=== PATIENT | female | born 1980 | race Caucasian/White ===

== ENCOUNTER 2021-01-24 15:50 | Emergency (ER) | payer SELFPAY ==
[2021-01-24 16:04] VITALS: BP 107/74; PULSE 129; RESP 20; TEMP 37.1; O2SAT 97; BMI 26.6
[2021-01-24 16:30] VITALS: BP 106/74; PULSE 120; RESP 13; O2SAT 96
--- NOTE | 2021-01-24 16:36 | ED.OVERDOSE ---
HPI - Overdose General Chief Complaint: Toxicology Problem Stated Complaint: WITHDRAWALS DTS Time Seen by Provider: 01/24/21 16:29 Source: patient Mode of arrival: Family Vehicle Limitations: no limitations History of Present Illness HPI Narrative: Patient is a 40-year-old female who presents with shaking all over. She states that she has been buying benzodiazepines and other drugs off history including methamphetamine and marijuana for at least 5 years. She states that she has not taken a benzodiazepine for about 3 weeks she would like to stop and also she can not find any. She is shaky and feels extremely anxious. She is tired of feeling this way. She denies any chest pain shortness of breath nausea or vomiting. She admits to using methamphetamine but she is not sure when, she also admits to smoking marijuana. She does not remember a whole lot and feels like maybe she has been poisoned. She is looking for detox. She denies any seizures. No alcohol use. Related Data Home Medications Medication Instructions Recorded Confirmed No Known Home Medications 01/24/21 01/24/21 Allergies Allergy/AdvReac Type Severity Reaction Status Date / Time Penicillins [PENICILLINS] Allergy Unknown Verified 01/24/21 16:48 Review of Systems Review of Systems ROS Unobtainable: All systems reviewed & are unremarkable except as noted in HPI and below Constitutional Constitutional: Denies chills, Denies fever(s), Denies lethargy and Denies weakness Eyes Eyes: Denies change in vision, Denies eye discharge, Denies irritation and Denies loss of vision ENT Ears, Nose, Mouth, and Throat: Denies change in voice, Denies neck pain and Denies sore throat Cardiovascular Cardiovascular: Denies chest pain, Denies irregular heart rhythm, Denies lightheadedness, Denies palpitations, Denies dyspnea, Denies dyspnea on exertion and Denies orthopnea Respiratory Respiratory: Denies cough, Denies dyspnea, Denies dyspnea on exertion and Denies wheezing Gastrointestinal Gastrointestinal: Denies abdominal pain, Denies change in bowel habits, Denies diarrhea, Denies nausea and Denies vomiting Genitourinary Genitourinary: Denies urinary hesitancy and Denies urinary incontinence Genitourinary: Denies urinary incontinence and Denies urinary hesitancy Musculoskeletal Musculoskeletal: Denies neck pain Integumentary/Breasts Skin/Breast: Denies pruritus, Denies erythema, Denies rash and Denies wounds Neurologic Neurologic: Denies loss of vision, Reports memory loss and Denies weakness Psychiatric Psychiatric: Reports system reviewed and no additional complaints, except as documented, Reports as per HPI, Reports anxiety, Reports memory loss and Reports paranoia Endocrine Endocrine: Denies palpitations Allergic/Immunologic Allergic/Immunologic: Denies wheezing Patient History Social History (Updated 01/24/21 @ 16:51 by Imelda Deluna DO) substance use type: marijuana, tranquilizers and methamphetamine alcohol intake frequency: 0-2 drinks per day Substance Use Type: marijuana and tranquilizers Exam Initial Vital Signs Initial Vital Signs: Vital Signs Temperature 98.7 F 01/24/21 16:04 Pulse Rate 129 H 01/24/21 16:04 Respiratory Rate 20 01/24/21 16:04 Blood Pressure 107/74 01/24/21 16:04 Pulse Oximetry 97 01/24/21 16:04 GENERAL: Alert anxious 40-year-old female and in no acute distress. HEENT: Head atraumatic,EOMI, pupils reactive, face symmetric, moist mucous membranes CARDIOVASCULAR: Tachycardic regular no murmur RESPIRATORY: Breath sounds equal bilaterally, no wheezes rales or rhonchi. ABDOMEN: Soft, nontender. Normoactive bowel sounds all 4 quadrants. No guarding or rebound. EXTREMITIES: Normal range of motion, no clubbing or edema. Neurovascularly intact NEUROLOGICAL: Alert and oriented x4.Normal gait and speech. Cranial nerves II through XII grossly intact. SKIN: Warm, dry, no laceration, no petechiae, no rashes or lesions. Course Orders Ordered: ED Orders 01/24/21 16:09 Consult to FIRST SAMPLER - [employer] Stat 01/24/21 16:32 Lactate (Lactic Acid) Stat 01/24/21 16:38 Acetaminophen Stat Complete Blood Count AUTO DIFF Stat Comprehensive Metabolic Panel Stat D Dimer Stat Ethanol (ETOH) Stat Free T4, Direct Thyroxine Stat Salicylate Stat Thyroid Stimulating Hormone Stat 01/24/21 16:40 COVID19 -Nasal swab/Pre-Proc Stat 01/24/21 17:12 XR chest 1V Stat 01/24/21 17:30 Blood Culture Stat 01/24/21 18:46 Urine Drug Screen, Rapid Stat 01/24/21 18:54 EKG-12 Lead Stat Discontinued Medications Acetaminophen (Acetaminophen 325 Mg Tablet) 975 mg PO NOW ONE Stop: 01/24/21 18:14 Last Admin: 01/24/21 18:16 Dose: 975 mg Documented by: REN Sodium Chloride (Normal Saline 0.9%) 1,000 mls @ 1,000 mls/hr IV BOLUS ONE Stop: 01/24/21 17:12 Last Infusion: 01/24/21 17:58 Dose: 0 mls/hr Documented by: Admin: 01/24/21 16:49 Dose: 1,000 mls/hr Documented by: REN Sodium Chloride (Normal Saline 0.9%) 1,000 mls @ 1,000 mls/hr IV BOLUS ONE Stop: 01/24/21 18:52 Last Admin: 01/24/21 18:16 Dose: 1,000 mls/hr Documented by: REN Vital Signs Vital signs: Vital Signs - 8 hr 01/24/21 16:04 01/24/21 16:30 01/24/21 17:14 Temperature 98.7 F Pulse Rate 129 H 120 H 115 H Respiratory Rate 20 13 12 Blood Pressure 107/74 106/74 110/73 Pulse Oximetry 97 96 96 01/24/21 18:00 01/24/21 19:03 Temperature Pulse Rate 116 H 115 H Respiratory Rate 16 15 Blood Pressure 99/69 110/72 Pulse Oximetry 99 95 MDM - Overdose Lab Data Attestation: I reviewed the patient's lab results. Result diagrams: 01/24/21 16:38 01/24/21 16:38 Labs: Lab Results 01/24/21 01/24/21 01/24/21 Range/Units 16:32 16:38 16:38 WBC 8.6 (4.5-11.0) X10^3/uL RBC 4.13 (4.0-5.2) X10^6/uL Hgb 12.5 (12.0-16.0) g/dL Hct 36.9 (36-46) % MCV 89.4 (80-100) fL MCH 30.3 (26-34) PG MCHC 33.9 (30-36) % RDW 13.3 (11.6-14.8) % Plt Count 268 (150-400) X10^3/uL Neut % (Auto) 83.3 H (50-75) % Lymph % (Auto) 8.2 L (25-40) % Swift % (Auto) 8.3 (3-14) % Eos % (Auto) 0.0 L (2-4) % Baso % (Auto) 0.2 (0-2) % Neut # (Auto) 7100 H (5488-9428) /uL Lymph # (Auto) 700 L (0183-1107) /uL Swift # (Auto) 700 (0-900) /uL Eos # (Auto) 0 (0-450) /uL Baso # (Auto) 0 (0-100) /uL D-Dimer (<230) ng/mL Sodium 137 (137-145) mmol/L Potassium 3.6 (3.4-5.1) mmol/L Chloride 97 L (98-107) mmol/L Carbon Dioxide 29 (22-32) mmol/L BUN 21 H (7-17) mg/dL Creatinine 0.86 (0.52-1.04) mg/dL Estimated GFR > 60.0 (>60) mL/min BUN/Creatinine Ratio 24.4 H (6-22) Glucose 175 H (70-100) mg/dL Lactate 2.0 (0.7-2.1) mmol/L Calcium 8.9 (8.4-10.2) mg/dL Total Bilirubin 0.6 (0.2-1.3) mg/dL AST 89 H (14-36) IU/L ALT 62 H (<35) IU/L Alkaline Phosphatase 59 (38-126) U/L Total Protein 7.9 (6.3-8.2) g/dL Albumin 3.9 (3.5-5.0) g/dL Globulin 4.0 (1.7-4.1) g/dL Albumin/Globulin Ratio 1.0 (1.0-2.8) TSH (0.47-4.68) uIU/mL Free T4 (0.78-2.19) ng/dL Salicylates < 1.0 (<20) mg/dL U Opiates 300ng/mL cut (Negative) Ur Oxycodone Screen (Negative) Urine Methadone Screen (Negative) Acetaminophen < 10 L (10-30) ug/mL Ur Barbiturates Screen (Negative) U Tricyclic Antidepress (Negative) Ur Phencyclidine Scrn (Negative) Ur Amphetamines Screen (Negative) U Methamphetamines Scrn (Negative) Ur MDMA Scrn (Ecstasy) (Negative) U Benzodiazepines Scrn (Negative) Urine Cocaine Screen (Negative) U Marijuana (THC) Screen (Negative) Ethyl Alcohol < 10 ( - 10) mg/dL SARS-CoV-2 (PCR) (Negative) 01/24/21 01/24/21 01/24/21 Range/Units 16:38 16:38 16:40 WBC (4.5-11.0) X10^3/uL RBC (4.0-5.2) X10^6/uL Hgb (12.0-16.0) g/dL Hct (36-46) % MCV (80-100) fL MCH (26-34) PG MCHC (30-36) % RDW (11.6-14.8) % Plt Count (150-400) X10^3/uL Neut % (Auto) (50-75) % Lymph % (Auto) (25-40) % Swift % (Auto) (3-14) % Eos % (Auto) (2-4) % Baso % (Auto) (0-2) % Neut # (Auto) (6668-7872) /uL Lymph # (Auto) (5472-1829) /uL Swift # (Auto) (0-900) /uL Eos # (Auto) (0-450) /uL Baso # (Auto) (0-100) /uL D-Dimer 590 H (<230) ng/mL Sodium (137-145) mmol/L Potassium (3.4-5.1) mmol/L Chloride (98-107) mmol/L Carbon Dioxide (22-32) mmol/L BUN (7-17) mg/dL Creatinine (0.52-1.04) mg/dL Estimated GFR (>60) mL/min BUN/Creatinine Ratio (6-22) Glucose (70-100) mg/dL Lactate (0.7-2.1) mmol/L Calcium (8.4-10.2) mg/dL Total Bilirubin (0.2-1.3) mg/dL AST (14-36) IU/L ALT (<35) IU/L Alkaline Phosphatase (38-126) U/L Total Protein (6.3-8.2) g/dL Albumin (3.5-5.0) g/dL Globulin (1.7-4.1) g/dL Albumin/Globulin Ratio (1.0-2.8) TSH 0.794 (0.47-4.68) uIU/mL Free T4 1.71 (0.78-2.19) ng/dL Salicylates (<20) mg/dL U Opiates 300ng/mL cut (Negative) Ur Oxycodone Screen (Negative) Urine Methadone Screen (Negative) Acetaminophen (10-30) ug/mL Ur Barbiturates Screen (Negative) U Tricyclic Antidepress (Negative) Ur Phencyclidine Scrn (Negative) Ur Amphetamines Screen (Negative) U Methamphetamines Scrn (Negative) Ur MDMA Scrn (Ecstasy) (Negative) U Benzodiazepines Scrn (Negative) Urine Cocaine Screen (Negative) U Marijuana (THC) Screen (Negative) Ethyl Alcohol ( - 10) mg/dL SARS-CoV-2 (PCR) Positive H (Negative) 01/24/21 Range/Units 18:46 WBC (4.5-11.0) X10^3/uL RBC (4.0-5.2) X10^6/uL Hgb (12.0-16.0) g/dL Hct (36-46) % MCV (80-100) fL MCH (26-34) PG MCHC (30-36) % RDW (11.6-14.8) % Plt Count (150-400) X10^3/uL Neut % (Auto) (50-75) % Lymph % (Auto) (25-40) % Swift % (Auto) (3-14) % Eos % (Auto) (2-4) % Baso % (Auto) (0-2) % Neut # (Auto) (6901-6414) /uL Lymph # (Auto) (7498-1103) /uL Swift # (Auto) (0-900) /uL Eos # (Auto) (0-450) /uL Baso # (Auto) (0-100) /uL D-Dimer (<230) ng/mL Sodium (137-145) mmol/L Potassium (3.4-5.1) mmol/L Chloride (98-107) mmol/L Carbon Dioxide (22-32) mmol/L BUN (7-17) mg/dL Creatinine (0.52-1.04) mg/dL Estimated GFR (>60) mL/min BUN/Creatinine Ratio (6-22) Glucose (70-100) mg/dL Lactate (0.7-2.1) mmol/L Calcium (8.4-10.2) mg/dL Total Bilirubin (0.2-1.3) mg/dL AST (14-36) IU/L ALT (<35) IU/L Alkaline Phosphatase (38-126) U/L Total Protein (6.3-8.2) g/dL Albumin (3.5-5.0) g/dL Globulin (1.7-4.1) g/dL Albumin/Globulin Ratio (1.0-2.8) TSH (0.47-4.68) uIU/mL Free T4 (0.78-2.19) ng/dL Salicylates (<20) mg/dL U Opiates 300ng/mL cut Negative (Negative) Ur Oxycodone Screen Negative (Negative) Urine Methadone Screen Negative (Negative) Acetaminophen (10-30) ug/mL Ur Barbiturates Screen Negative (Negative) U Tricyclic Antidepress Negative (Negative) Ur Phencyclidine Scrn Negative (Negative) Ur Amphetamines Screen Negative (Negative) U Methamphetamines Scrn Negative (Negative) Ur MDMA Scrn (Ecstasy) Negative (Negative) U Benzodiazepines Scrn Negative (Negative) Urine Cocaine Screen Negative (Negative) U Marijuana (THC) Screen Negative (Negative) Ethyl Alcohol ( - 10) mg/dL SARS-CoV-2 (PCR) (Negative) Point of Care Testing Test Results Negative Urine Dip Bedside Urine Glucose Negative Bedside Urine Bilirubin - Negative Bedside Urine Ketone - Negative Urine Specific [place] 1.005 Bedside Urine Occult Blood - Negative Bedside Urine pH 6 Bedside Urine Protein - Negative Bedside Urine Urobilinogen - Negative Bedside Urine Nitrite - Negative Bedside Urine Leukocytes - Negative Esterase Imaging Data Chest x-ray: Radiologist's Impression: PROCEDURE: XR CHEST 1V INDICATIONS: covid TECHNIQUE: One view of the chest was acquired. COMPARISON: [facility], , CHEST 1VW (PORTABLE), 07/19/2014, 22:23. FINDINGS: Surgical changes and devices: None. Lungs and pleura: Patchy airspace opacity at the lower lung izagu[place]re, left greater than right. No silhouetting seen. No pleural effusions or pneumothorax. Mediastinum: Mediastinal contours appear normal. Heart size is normal. Bones and chest wall: No suspicious bony lesions. Overlying soft tissues appear unremarkable. IMPRESSION: Patchy airspace opacity in the lower lung izaguirre. Findings in keeping with COVID-19. Dictated by: Hardeep Ford M.D. on 01/24/2021 at 17:35 Approved by: Hardeep Ford M.D. on 01/24/2021 at 17:36 ECG Data Attestation: I personally reviewed and interpreted this ECG as follows: Prior ECG tracings: not available for review Interpretation: Sinus tachycardia rate 111 p.r. interval 164 QRS [address] changes no Q-waves no S waves MDM Narrative Medical decision making narrative: Patient initially tachycardic but improves with Tylenol and normal saline. She is actually found to be COVID positive she denies any shortness of breath. D-dimer was initially added for tachycardia however it is elevated I believe secondary to COVID and not to PE. She denies any cough or shortness of breath. Her drug screen is negative. Her heart rate is about 110 however she is still quite anxious. At this time she does not meet any admission criteria for COVID. I discussed with her home monitoring and self quarantine. Discharge Plan Departure Patient Disposition: Home Clinical Impression: COVID-19 Instructions: DI for COVID-19 (Suspected or Confirmed ) Activity Restrictions/Additional Instructions: *You have been diagnosed with COVID-19 *What to do: Please buy a home pulse oximeter and monitor oxygen levels intermittently. If her oxygen is below 90% is for more than 5 minutes or you having increasing shortness of breath or bluish lips then return to the emergency department. You will need to self quarantine for 10 days after symptoms started. *Continue to take medications as directed Tylenol 650 mg every 4-6 hours if needed for [id number] pain or fever *Follow up with your primary care provider in 2-3 days *Return to ER if you should have increasing shortness of breath, decreased fluid intake for the above symptoms or any new, worsening or concerning symptoms CDC Guidelines for home isolation: - Stay away from others - Limit contact with pets and animals: If you must care for a pet, wash your hands before and after interacting with them - Wear a mask if you are sick - Cover your mouth and nose with a tissue when you cough or sneeze. Dispose of tissues in a lined trash can and wash your hands immediately with soap and water for at least 20 seconds. If soap and water are not available, clean hands with alcohol-based hand material distributor that contains at least 60% alcohol. - Clean your hands often with soap and water for at least 20 seconds - Avoid touching your eyes, nose and mouth with unwashed hands - Do not share dishes, drinking glasses, cups, eating utensils, towels, or bedding with other people in your home. After using these items, wash them thoroughly with soap and water or put in the principal technical writer. - Clean high-touch surfaces in your isolation area (?sick room? and bathroom) every day; let a caregiver clean and disinfect high-touch surfaces in other areas of the home. Clean the area or item with soap and water or another detergent if it is dirty. Then, use a household disinfectant. Seek medical attention, but call first: - Seek medical care right away if your illness is worsening (for example, if you have difficulty breathing). - Call your doctor before going in: Before going to the doctor?s office or emergency room, call ahead and tell them your symptoms. They will tell you what to do. - If possible, put on a facemask before you enter the building. If you can?t put on a facemask, try to keep a safe distance from other people (at least 6 feet away). This will help protect the people in the office or waiting room. - Follow care instructions from your healthcare provider and local health department: Your local health authorities will give instructions on checking your symptoms and reporting information. Emergency warning signs for COVID-19: - Difficulty breathing or shortness of breath - Persistent pain or pressure in the chest - New confusion or inability to arouse - Bluish lips or face Prescriptions: No Action No Known Home Medications RF: 0 Referrals: [facility] [Outside]
[2021-01-24] MEDS: SODIUM CHLORIDE 0.9% 1,000 ML 1000 ML IV ×2 (16:49→18:16)
[2021-01-24 16:51] LABS: Add Manual Diff / Slide Review NO; Basophils Absolute Auto 0 /uL (0-100); Basophils Percent Auto 0.2 % (0-2); Eosinophils Absolute Auto 0 /uL (0-450); Hematocrit 36.9 % (36-46); Hemoglobin 12.5 g/dL (12.0-16.0); Lymphocytes Absolute Auto 700 /uL (1100-4500); Lymphocytes Percent Auto 8.2 % (25-40); Mean Corpuscular HGB Conc 33.9 % (30-36); Mean Corpuscular Hemoglobin 30.3 PG (26-34); Mean Corpuscular Volume 89.4 fL (80-100); Monocytes Absolute Auto 700 /uL (0-900); Monocytes Percent Auto 8.3 % (3-14); Neutrophils Absolute Auto 7100 /uL (1500-7000); Neutrophils Percent Auto 83.3 % (50-75); Platelet Count 268 X10^3/uL (150-400); Red Blood Cell Count 4.13 X10^6/uL (4.0-5.2); Red Cell Distribution Width 13.3 % (11.6-14.8); White Blood Cell Count 8.6 X10^3/uL (4.5-11.0)
[2021-01-24 17:04] LABS: Acetaminophen < 10 ug/mL (10-30); Alanine Aminotransferase 62 IU/L (<35); Albumin 3.9 g/dL (3.5-5.0); Alkaline Phosphatase 59 U/L (38-126); Aspartate Aminotransferase 89 IU/L (14-36); BUN Creatinine Ratio 24.4 (6-22); Bilirubin Total 0.6 mg/dL (0.2-1.3); Blood Urea Nitrogen 21 mg/dL (7-17); Calcium 8.9 mg/dL (8.4-10.2); Carbon Dioxide 29 mmol/L (22-32); Chloride 97 mmol/L (98-107); Estimated Glomerular Filt Rate > 60.0 mL/min (>60); Ethanol (ETOH) < 10 mg/dL; Glucose 175 mg/dL (70-100); HEMOLYSIS < 15 (0-50); Potassium 3.6 mmol/L (3.4-5.1); Salicylate < 1.0 mg/dL (<20); Sodium 137 mmol/L (137-145); Total Protein 7.9 g/dL (6.3-8.2)
[2021-01-24 17:10] LABS: COVID19 -Nasal RAPID POSITIVE (Negative)
--- NOTE | 2021-01-24 17:12 | DI.RAD.S_ITS ---
PROCEDURE: XR CHEST 1V INDICATIONS: covid TECHNIQUE: One view of the chest was acquired. COMPARISON: [facility], , CHEST 1VW (PORTABLE), 07/19/2014, 22:23. FINDINGS: Surgical changes and devices: None. Lungs and pleura: Patchy airspace opacity at the lower lung izaguirre, left greater than right. No silhouetting seen. No pleural effusions or pneumothorax. Mediastinum: Mediastinal contours appear normal. Heart size is normal. Bones and chest wall: No suspicious bony lesions. Overlying soft tissues appear unremarkable. IMPRESSION: Patchy airspace opacity in the lower lung izaguirre. Findings in keeping with COVID-19. Dictated by: Hardeep Ford M.D. on 01/24/2021 at 17:35 Approved by: Hardeep Ford M.D. on 01/24/2021 at 17:36
[2021-01-24 17:14] VITALS: BP 110/73; PULSE 115; RESP 12; O2SAT 96
[2021-01-24 17:22] LABS: D Dimer 590 ng/mL (<230)
[2021-01-24 17:41] LABS: Free T4, Direct Thyroxine 1.71 ng/dL (0.78-2.19)
[2021-01-24 17:54] LABS: Thyroid Stimulating Hormone 0.794 uIU/mL (0.47-4.68)
[2021-01-24 18:00] VITALS: BP 99/69; PULSE 116; RESP 16; O2SAT 99
[2021-01-24] MEDS: ACETAMINOPHEN 325 MG TABLET 975 MG PO (18:16)
[2021-01-24 19:03] VITALS: BP 110/72; PULSE 115; RESP 15; O2SAT 95
[2021-01-24 19:06] LABS: UR Morphine/Opiate cutoff 300 Negative (Negative); Ur Creatinine Normal (Normal); Ur Specific Gravity Normal (Normal); Urine Amphetamines Negative (Negative); Urine Barbiturates Negative (Negative); Urine Benzodiazepines Negative (Negative); Urine Cocaine Negative (Negative); Urine MDMA Negative (Negative); Urine Methadone Negative (Negative); Urine Methamphetamines Negative (Negative); Urine Oxycodone Negative (Negative); Urine Phencyclidine Negative (Negative); Urine Tetrahydrocannabinol Negative (Negative); Urine Tricyclic Antidepressant Negative (Negative); Urine pH Normal (Normal)
[2021-01-24 19:46] VITALS: BP 109/67; PULSE 100; RESP 15; O2SAT 97
[2021-01-24 20:33] LABS: Reflexed Lactate in 2 Hours Y
== END 2021-01-24 19:58 | disposition home or self-care (01) ==
PROVIDERS: Emergency Provider Emergency Medicine
DX: U07.1 COVID-19 (principal)
CPT/HCPCS: 36415; 71045; 80053; 80305; 80320; 80329; 81003; 81025; 83605; 84439; 84443; 85025; 85379; 87040; 87635; 93005; 93010; 99284; C9803; G0480

== ENCOUNTER 2021-06-14 20:17 | Emergency (ER) | payer SELFPAY ==
[2021-06-14 20:27] VITALS: BP 130/93; PULSE 117; RESP 18; TEMP 36.8; O2SAT 100; BMI 25.7
== END 2021-06-14 21:05 | disposition left against medical advice (07) ==
LOC: ED 20:41
PROVIDERS: Emergency Provider Emergency Medicine
CPT/HCPCS: 99281

== ENCOUNTER 2021-07-13 23:46 | Emergency (ER) | payer SELFPAY ==
[2021-07-13 23:52] VITALS: BP 142/95; PULSE 89; RESP 18; TEMP 37.3; O2SAT 98
--- NOTE | 2021-07-13 23:52 | DI.RAD.S_ITS ---
PROCEDURE: XR TIBIA FUBULA RT 2V INDICATIONS: proximal fibula pain after fall TECHNIQUE: 2 views of the tibia and fibula were acquired. COMPARISON: None. FINDINGS: Bones: Nondisplaced oblique fracture of the distal fibula and medial malleolus. Soft tissues: No suspicious soft tissue calcifications or masses. IMPRESSION: 1. Nondisplaced oblique fracture of the distal fibula. 2. Nondisplaced fracture medial malleolus. Dictated by: Iván King M.D. on 07/14/2021 at 0:18 Approved by: Iván King M.D. on 07/14/2021 at 0:19
--- NOTE | 2021-07-13 23:52 | DI.RAD.S_ITS ---
PROCEDURE: XR FOOT RT MIN 3V INDICATIONS: pain after fall TECHNIQUE: 3 views of the foot were acquired. COMPARISON: [facility], , FOOT 3V LEFT, 07/20/2014, 11:37. FINDINGS: Bones: There is a nondisplaced fracture of the distal fibula and also a minimally displaced fracture of the medial and posterior malleolus. Soft tissues: No tibiotalar joint effusion. Achilles tendon appears normal. IMPRESSION: 1. Nondisplaced fracture of the distal fibula. 2. Minimally displaced fracture of the medial and posterior malleolus. Dictated by: Iván King M.D. on 07/14/2021 at 0:21 Approved by: Iván King M.D. on 07/14/2021 at 0:24
--- NOTE | 2021-07-13 23:53 | ED_ITS ---
HPI - General Adult General Chief complaint: Extremity Injury, Lower Stated complaint: right foot injury Time Seen by Provider: 07/13/21 23:49 Source: patient Mode of arrival: Wheelchair History of Present Illness HPI narrative: Patient is a 40-year-old female who is here for evaluation of a right foot/leg/ankle injury. She states that 2 days ago she was roller-skating. States that she fell when she was roller-skating. At some point during the fall she twisted her right leg back up under her. She has been walking on the ankle since then but has had quite a bit of discomfort. Also has noticed swelling and bruising. Related Data Home Medications Medication Instructions Recorded Confirmed No Known Home Medications 01/24/21 01/24/21 Allergies Allergy/AdvReac Type Severity Reaction Status Date / Time Penicillins [PENICILLINS] Allergy Unknown Verified 06/14/21 20:27 Review of Systems Musculoskeletal Musculoskeletal: Reports system reviewed and no additional complaints, except as documented and Reports as per HPI Integumentary/Breasts Skin/Breast: Reports system reviewed and no additional complaints, except as documented and Reports as per HPI Neurologic Neurologic: Reports system reviewed and no additional complaints, except as documented Hematologic/Lymphatic On Anticoagulants: No Patient History Medical History COVID-19 Dental abscess Social History Smoking Status: Never smoker substance use type: marijuana, tranquilizers and methamphetamine Smoking Status: Never smoker alcohol intake frequency: 0-2 drinks per day Substance Use Type: marijuana Exam Initial Vital Signs Initial Vital Signs: Vital Signs Temperature 99.1 F 07/13/21 23:52 Pulse Rate 89 07/13/21 23:52 Respiratory Rate 18 07/13/21 23:52 Blood Pressure 142/95 H 07/13/21 23:52 Pulse Oximetry 98 07/13/21 23:52 HENMT Head: normal to inspection and normocephalic Cardio Pulses: dorsalis pedis present on the right Skin Other: Mild bruising and swelling to the dorsum of the right foot Neuro Sensory Exam: no sensory deficits noted Extrem Other: Patient has tenderness to palpation circumferentially from her proximal tibia and fibula down past her ankle into her foot. Psych Appearance: grossly normal and well kempt Procedures Orthopedic Splinting/Casting Injury #1: Side: right Lower Extremity Injury Location: ankle Lower Extremity Immobilizer: posterior splint and stirrup splint Other Orthopedic Equipment: crutches Post splinting neuro exam: no change Post splinting vascular exam: no change Placed by: Nursing Course Orders Ordered: ED Orders 07/13/21 23:52 XR foot RT min 3V Stat XR tibia fibula RT 2V Stat Discontinued Medications Acetaminophen (Acetaminophen 325 Mg Tablet) 650 mg PO NOW ONE Stop: 07/14/21 00:31 Last Admin: 07/14/21 00:37 Dose: 650 mg Documented by: CANDIS Vital Signs Vital signs: Vital Signs - 8 hr 07/13/21 23:52 Temperature 99.1 F Pulse Rate 89 Respiratory Rate 18 Blood Pressure 142/95 H Pulse Oximetry 98 Medical Decision Making Imaging Data Extremity x-ray #1: Radiologist's Impression: [address] [address] XRay Report Signed Patient: Arti Gatica V MR#: [id number] : 1980 Acct:[id number] Age/Sex: 40 / F Date of Service: 07/13/21 Loc: ED Accession Number: [id number] ?? Procedure: XR tibia fibula RT 2V Ordering Provider: Donny Betts D.O. PROCEDURE:? XR TIBIA FUBULA RT 2V ? INDICATIONS:? proximal fibula pain after fall ? TECHNIQUE:? 2 views of the tibia and fibula were acquired.? ? COMPARISON:? None. ? FINDINGS:? ? Bones:? Nondisplaced oblique fracture of the distal fibula and medial malleolus. ? Soft tissues:? No suspicious soft tissue calcifications or masses.? ? IMPRESSION:? 1. Nondisplaced oblique fracture of the distal fibula.? 2. Nondisplaced fracture medial malleolus.? ? ? Dictated by: Iván King M.D. on 07/14/2021 at 0:18 ? ? Approved by: Iván King M.D. on 07/14/2021 at 0:19?? Extremity x-ray #2: Radiologist's Impression: [address] [address] XRay Report Signed Patient: Arti Gatica V MR#: [id number] : 1980 Acct:[id number] Age/Sex: 40 / F Date of Service: 07/13/21 Loc: ED Accession Number: [id number] ?? Procedure: XR foot RT min 3V Ordering Provider: Donny Betts D.O. PROCEDURE:? XR FOOT RT MIN 3V ? INDICATIONS:? pain after fall ? TECHNIQUE:? 3 views of the foot were acquired.? ? COMPARISON:? [facility], , FOOT 3V LEFT, 07/20/2014, 11:37. ? FINDINGS:? ? Bones:? There is a nondisplaced fracture of the distal fibula and also a minimally displaced fracture of the medial and posterior malleolus. ? Soft tissues:? No tibiotalar joint effusion.? Achilles tendon appears normal.? ? ? IMPRESSION:? 1. Nondisplaced fracture of the distal fibula. 2. Minimally displaced fracture of the medial and posterior malleolus.? ? ? Dictated by: Iván King M.D. on 07/14/2021 at 0:21 ? ? Approved by: Iván King M.D. on 07/14/2021 at 0:24?? MDM Narrative Medical decision making narrative: Patient's x-ray does show a nondisplaced fibula and tibia fracture. Patient is neurovascularly intact. She was placed in a splint. Was given crutches. Was given care instructions and return precautions. She expressed understanding and agreement. Discharge Plan Departure Patient Disposition: Home Clinical Impression: Ankle fracture, right Instructions: How to Use Crutches, DI for Ankle Fracture, How to Take Care of Your Splint Activity Restrictions/Additional Instructions: The splint that was placed today does need to stay on an stay clean and stay dry. You do need to treat it like a cast. You did break your ankle. This most likely not going to need surgery but you do need to contact the Orthopedic Department at the number provided below to schedule follow-up. You will eventually need this splint transitioned into a cast. You can take Tylenol or ibuprofen for any discomfort. Return to the emergency department for any new symptoms Prescriptions: No Action No Known Home Medications RF: 0 Referrals: Veronica Banks MD [Physician] -
[2021-07-14] MEDS: ACETAMINOPHEN 325 MG TABLET 650 MG PO (00:37)
--- NOTE | 2021-07-14 01:39 | PC.NURSE ---
Patient is angry she did not receive narcotics for pain. She is also mad about wearing the paper scrub pants home stating she cannot wear them home and insists on putting her jeans back on over her splint. Pt had a pair of leggings she was able to put over her splint.
== END 2021-07-14 01:41 | disposition home or self-care (01) ==
PROVIDERS: Emergency Provider Emergency Medicine
DX: S82.891A Other fracture of right lower leg, initial encounter for closed fracture (principal); V00.121A Fall from non-in-line roller-skates, initial encounter
CPT/HCPCS: 29515; 73590; 73630; 99283; 99284

== ENCOUNTER 2022-03-24 05:48 | Inpatient (IN) | payer OTHER, MEDICAID, SELFPAY ==
[2022-03-24] VITALS (28 sets, daily range): BP systolic 148–201; BP diastolic 79–120; PULSE 94–113; RESP 18–38; TEMP 36.8–38.4; O2SAT 95–100; BMI 38.2
--- NOTE | 2022-03-24 | DI.RAD.S_ITS ---
PROCEDURE: XR CHEST 1V INDICATIONS: DIFFICULTY BREATHING AFTER CHILDBIRTH TECHNIQUE: One view of the chest was acquired. COMPARISON: [facility], CR, XR CHEST 1V, 01/24/2021, 17:18. FINDINGS: Surgical changes and devices: None. Lungs and pleura: Patchy bilateral pulmonary opacities are present. Mediastinum: Mediastinal contours appear normal. Heart size is normal. Bones and chest wall: No suspicious bony lesions. Overlying soft tissues appear unremarkable. IMPRESSION: Patchy bilateral pulmonary opacity may represent pneumonia versus edema. Dictated by: Lesvia Jeong M.D. on 03/24/2022 at 8:19 Approved by: Lesvia Jeong M.D. on 03/24/2022 at 8:20
[2022-03-24 06:17] LABS: Add Manual Diff / Slide Review NO; Basophils Absolute Auto 100 /uL (0-100); Basophils Percent Auto 0.6 % (0-2); Eosinophils Absolute Auto 0 /uL (0-450); Eosinophils Percent Auto 0.1 % (2-4); Hematocrit 25.8 % (36-46); Hemoglobin 8.5 g/dL (12.0-16.0); Lymphocytes Absolute Auto 600 /uL (1100-4500); Lymphocytes Percent Auto 3.6 % (25-40); Mean Corpuscular HGB Conc 32.8 % (30-36); Mean Corpuscular Hemoglobin 24.7 PG (26-34); Mean Corpuscular Volume 75.4 fL (80-100); Monocytes Absolute Auto 800 /uL (0-900); Neutrophils Absolute Auto 14300 /uL (1500-7000); Neutrophils Percent Auto 90.7 % (50-75); Platelet Count 421 X10^3/uL (150-400); Red Blood Cell Count 3.43 X10^6/uL (4.0-5.2); Red Cell Distribution Width 17.5 % (11.6-14.8); White Blood Cell Count 15.8 X10^3/uL (4.5-11.0)
[2022-03-24 06:32] LABS: COVID19 -Nasal RAPID Negative (Negative)
[2022-03-24 07:29] LABS: Appearance Urine UA CLOUDY; Bilirubin Urine UA 2+ (NEGATIVE); Color Urine UA ORANGE; Glucose Urine UA NEGATIVE (Negative); Ketones Urine UA TRACE (NEGATIVE); Leukocyte Esterase Urine UA TRACE (NEGATIVE); Nitrite Urine UA NEGATIVE (Negative); Occult Blood Urine UA 2+ (Negative); Protein Urine UA 3+ (Negative); Specific Gravity Urine UA >=1.030 (1.000-1.035)
[2022-03-24 07:30] LABS: pH Urine UA 5.5 (4.5-8.0)
[2022-03-24 07:32] LABS: Bacteria Urine Many (>30); Culture Indicated Urine Cult Not Indicated; Ictotest Urine Negative (Negative); RBC Urine 10-30/HPF (0-5/HPF); Squamous Epithelial Cell Urine 5-10 /HPF (0-5/HPF); WBC Urine 1-5/HPF (0-5/HPF)
--- NOTE | 2022-03-24 07:37 | P.PCNOB_ITS ---
Events: No Care, Pre-Eclampsia (Severe) and Other (Drug use in mom) Labor & Delivery Delivery date: 03/24/22 Intrapartal Events: Severe Preeclampsia Cervical ripening method: none Induction method: none Delivery monitor: external FHT and external uterine Route of delivery: Episiotomy description: None L&D Laceration Description: None Estimated blood loss (mL): 300 Anesthesia Type: Spinal Complications: None Narrative: Patient complete and pushed for about 20 minutes. There was no descent of the head. A vacuum was applied and there was no descent with a vacuum. A decision was made to proceed to a section due to no care and unknown estimated weight. Patient was taken to the operating room. Spinal anesthesia had already been placed. Patient had strong urge to push. With help supporting her legs, with 2 pushes, a live male infant delivered over an intact perineum at 7:13 a.m.. There was the left arm up near the face. The remainder of the body delivered without difficulty and was placed on mom's abdomen. The cord was double clamped and cut. Cord bloods were obtained. 10 units of Pitocin were given IM. 10 units of Pitocin were placed in the IV fluids. The placenta delivered intact with a three-vessel cord at 7:15 a.m.. Fundus was massaged to firm. Estimated blood loss 300 cc. No lacerations. Spinal anesthesia. Infant is stable to the nursery. Mom to the intensive care unit after PACU. Weight 9 lb 9.2 oz. Apgars 8 at 1 minute and 9 at 5 minutes. [place] Baby 1: gender: Male Presentation: vertex Position: Right Occiput Anterior (compound presentation with left arm near face) Placenta delivery description: Spontaneous Cord Vessel Description: 3 Vessels and Clamped/Cut score (1 min): 8 score (5 min): 9 weight: 9 lb 9.2 oz Plan for aftercare: Other (One on one with MgSo4)
--- NOTE | 2022-03-24 07:38 | SUR.OPER ---
Lithotomy on OB BED head on pillow, <90 degrees abduction. Legs secured in padded STIRRUPS IN BED
--- NOTE | 2022-03-24 07:43 | SUR.OPER ---
PATIENT TO OR FOR EMERGENCY . UPON ARRIVAL TO OR PATIENT VAGINALLY DELIVERED VIABLE MALE . DR. CHAIREZ AND DR. LOPEZ WITH PATIENT. NO ANESTHESIA CONSENT AND NO H AND P OBTAINED DUE TO EMERGENCE OF PROCEDURE.
[2022-03-24 07:52] LABS: Aspartate Aminotransferase 119 IU/L (14-36); BUN Creatinine Ratio 7.1 (6-22); Blood Urea Nitrogen 6 mg/dL (7-17); Estimated Glomerular Filt Rate > 60 mL/min (>60); Uric Acid 7.6 mg/dL (2.5-6.2)
[2022-03-24 08:10] LABS: Alanine Aminotransferase 104 IU/L (<35); Albumin 2.7 g/dL (3.5-5.0); Albumin Globulin Ratio 0.8 (1.0-2.8); Alkaline Phosphatase 188 U/L (38-126); Aspartate Aminotransferase 121 IU/L (14-36); BUN Creatinine Ratio 7.1 (6-22); Bilirubin Total 1.1 mg/dL (0.2-1.3); Blood Urea Nitrogen 6 mg/dL (7-17); Calcium 7.8 mg/dL (8.4-10.2); Carbon Dioxide 17 mmol/L (22-32); Chloride 108 mmol/L (98-107); Estimated Glomerular Filt Rate > 60 mL/min (>60); Globulin 3.2 g/dL (1.7-4.1); Glucose 130 mg/dL (70-100); HEMOLYSIS < 15 (0-50); Potassium 4.3 mmol/L (3.4-5.1); Sodium 134 mmol/L (137-145); Total Protein 5.9 g/dL (6.3-8.2)
[2022-03-24] MEDS: METOPROLOL TARTRATE 5 MG/5 ML INJ IV ×4 (08:12→10:49)
--- NOTE | 2022-03-24 08:13 | SUR.PHASEI ---
Pt arrived to PACU, SOB with rapid RR of 30's. Dr Smith here, medicating with hydralazine for high BP. Dr Underwood in to check fundus, abdomen marked with sharpie for fundus location. Metoprolol also given by Dr. Smith and cxr obtained.
--- NOTE | 2022-03-24 08:17 | SUR.PHASEI ---
Dr. Smith remaining at bedside. BP coming down, urine toxicology sent.
[2022-03-24] MEDS: MAGNESIUM SULFATE 4 GM/100 ML PIGGYBACK IV (08:28)
[2022-03-24 08:31] LABS: Ur Creatinine 20 (Normal); Ur Specific Gravity >1.030 (Normal); Urine pH 4 (Normal)
[2022-03-24 08:32] LABS: UR Morphine/Opiate cutoff 300 Positive (Negative); Urine Amphetamines Positive (Negative); Urine Barbiturates Negative (Negative); Urine Benzodiazepines Negative (Negative); Urine Cocaine Negative (Negative); Urine MDMA Negative (Negative); Urine Methadone Negative (Negative); Urine Methamphetamines Positive (Negative); Urine Oxycodone Negative (Negative); Urine Phencyclidine Negative (Negative); Urine Tetrahydrocannabinol Positive (Negative); Urine Tricyclic Antidepressant Negative (Negative)
[2022-03-24] MEDS: MAGNESIUM SULFATE 20 GM/500 ML IV.SOLN IV ×2 (09:13→18:48)
[2022-03-24] MEDS: LACTATED RINGERS 1,000 ML 10 ML IV (09:20)
--- NOTE | 2022-03-24 10:04 | SUR.PHASEI ---
Late entry: simple boudreaux bag changed to urine meter, magnesium bolus given, maintenance drip started, see EMAR. Kait BYRNE RN came to PACU to do reflex checks, stated they were 3+, these reported to Dr. Smith who remained at bedside and Dr. Underwood via telephone. Report called to LA ENNA Doss and pt transported on monitor to room 229.
--- NOTE | 2022-03-24 10:10 | PC.NURSE ---
Patient arrived to ICU from PACU to room 229. Patient awake, answering questions, and irritable and asking to have oxygen mask removed. Fever 101 noted upon arrival, RR 40's, patient anxious. Spoke with Dr. Underwood over the phone after speaking with tele-kindergartner Dr. Blair. Dr. Underwood states magnesium level not needed at this time, (but has already been ordered and drawn per Dr. Blair). Blanco in place upon arrival draining clear yellow urine. Fundus level marked just below umbilicus and firm. New nahed pad in place with scant bloody drainage. Nahed area bruised and swollen. Firm edema +3 to all extermities up through abdomen, generalized. Dr. Blair's phone number given to Dr. underwood for consultation. This RN assisting primary RN Rosemary Alcala, will continue to follow.
[2022-03-24 10:21] LABS: Add Manual Diff / Slide Review NO; Basophils Absolute Auto 100 /uL (0-100); Basophils Percent Auto 0.3 % (0-2); Eosinophils Absolute Auto 0 /uL (0-450); Hematocrit 24.5 % (36-46); Hemoglobin 7.9 g/dL (12.0-16.0); Lymphocytes Absolute Auto 600 /uL (1100-4500); Lymphocytes Percent Auto 2.5 % (25-40); Mean Corpuscular HGB Conc 32.3 % (30-36); Mean Corpuscular Hemoglobin 24.3 PG (26-34); Mean Corpuscular Volume 75.3 fL (80-100); Monocytes Absolute Auto 1700 /uL (0-900); Monocytes Percent Auto 7.3 % (3-14); Neutrophils Absolute Auto 20400 /uL (1500-7000); Neutrophils Percent Auto 89.9 % (50-75); Platelet Count 416 X10^3/uL (150-400); Red Blood Cell Count 3.26 X10^6/uL (4.0-5.2); Red Cell Distribution Width 17.6 % (11.6-14.8); White Blood Cell Count 22.7 X10^3/uL (4.5-11.0)
--- NOTE | 2022-03-24 10:30 | P.TELICUCN_ITS ---
History of Present Illness Consult details Date Patient Seen: 03/24/22 Chief complaint: labor [facility] Medical History COVID-19 Dental abscess Social History (System 03/24/22 @ 08:23 by Mary Vera) Smoking Status: Never smoker substance use type: marijuana, tranquilizers and methamphetamine Current Medications Current Medications Medications: Home Medications No Known Home Medications 01/24/21 [History Confirmed 01/24/21] Exam Vital Signs (past 8 hours): - 03/24/22 08:06 03/24/22 07:48 03/24/22 08:27 Temperature 98.8 F 98.9 F Pulse Rate 105 H 103 H 100 H Respiratory Rate 30 H 30 H 38 H Blood Pressure 186/107 H 201/120 H 176/110 H Pulse Oximetry 100 100 100 Oxygen Delivery Method Simple Mask Simple Mask Simple Mask Oxygen Flow Rate 7 7 7 03/24/22 08:48 03/24/22 09:12 03/24/22 09:40 Temperature 101.1 F H 101.0 F H 100.8 F H Pulse Rate 100 H 113 H 95 H Respiratory Rate 36 H 34 H 26 H Blood Pressure 173/108 H 181/107 H 186/106 H Pulse Oximetry 100 100 96 Oxygen Delivery Method Simple Mask Nasal Cannula Oxygen Flow Rate 6 6 0 Oxygen Delivery Method Nasal Cannula Oxygen Flow Rate 0 Objective Labs Result Diagrams: 03/24/22 10:04 03/24/22 Unknown Labs: Laboratory Results - last 24 hr 03/24/22 03/24/22 03/24/22 05:20 05:20 07:14 WBC 15.8 H RBC 3.43 L Hgb 8.5 L Hct 25.8 L MCV 75.4 L MCH 24.7 L MCHC 32.8 RDW 17.5 H Plt Count 421 H Neut % (Auto) 90.7 H Lymph % (Auto) 3.6 L [place] % (Auto) 5.0 Eos % (Auto) 0.1 L Baso % (Auto) 0.6 Neut # (Auto) 79738 H Lymph # (Auto) 600 L [place] # (Auto) 800 Eos # (Auto) 0 Baso # (Auto) 100 Sodium Potassium Chloride Carbon Dioxide BUN Creatinine Estimated GFR BUN/Creatinine Ratio Glucose Uric Acid Calcium Total Bilirubin AST ALT Alkaline Phosphatase Total Protein Albumin Globulin Albumin/Globulin Ratio Urine Color [place] Urine Appearance Cloudy Urine pH 5.5 Ur Specific [place] >=1.030 H Urine Protein 3+ H Urine Glucose (UA) Negative Urine Ketones Trace H Urine Occult Blood 2+ H Urine Nitrate Negative Urine Bilirubin 2+ H Ur Bilirubin Confirm Negative Urine Urobilinogen 2.0 H Ur Leukocyte Esterase Trace H Urine RBC 10-30/hpf H Urine WBC 1-5/hpf Ur Squamous Epith Cells 5-10 /hpf H Urine Bacteria Many (>30) H Ur Culture Indicated? Cult not indicated U Opiates 300ng/mL cut Ur Oxycodone Screen Urine Methadone Screen Ur Barbiturates Screen U Tricyclic Antidepress Ur Phencyclidine Scrn Ur Amphetamines Screen U Methamphetamines Scrn Ur MDMA Scrn (Ecstasy) U Benzodiazepines Scrn Urine Cocaine Screen U Marijuana (THC) Screen SARS-CoV-2 (PCR) Negative Blood Type Antibody Screen 03/24/22 03/24/22 03/24/22 07:23 07:37 07:56 WBC RBC Hgb Hct MCV MCH MCHC RDW Plt Count Neut % (Auto) Lymph % (Auto) [place] % (Auto) Eos % (Auto) Baso % (Auto) Neut # (Auto) Lymph # (Auto) [place] # (Auto) Eos # (Auto) Baso # (Auto) Sodium Potassium Chloride Carbon Dioxide BUN 6 L Creatinine 0.85 Estimated GFR > 60 BUN/Creatinine Ratio 7.1 Glucose Uric Acid 7.6 H Calcium Total Bilirubin AST 119 H ALT Alkaline Phosphatase Total Protein Albumin Globulin Albumin/Globulin Ratio Urine Color Urine Appearance Urine pH Ur Specific [place] Urine Protein Urine Glucose (UA) Urine Ketones Urine Occult Blood Urine Nitrate Urine Bilirubin Ur Bilirubin Confirm Urine Urobilinogen Ur Leukocyte Esterase Urine RBC Urine WBC Ur Squamous Epith Cells Urine Bacteria Ur Culture Indicated? U Opiates 300ng/mL cut Positive H Ur Oxycodone Screen Negative Urine Methadone Screen Negative Ur Barbiturates Screen Negative U Tricyclic Antidepress Negative Ur Phencyclidine Scrn Negative Ur Amphetamines Screen Positive H U Methamphetamines Scrn Positive H Ur MDMA Scrn (Ecstasy) Negative U Benzodiazepines Scrn Negative Urine Cocaine Screen Negative U Marijuana (THC) Screen Positive H SARS-CoV-2 (PCR) Blood Type A Positive Antibody Screen Negative 03/24/22 03/24/22 10:04 Unknown WBC 22.7 H RBC 3.26 L Hgb 7.9 L Hct 24.5 L MCV 75.3 L MCH 24.3 L MCHC 32.3 RDW 17.6 H Plt Count 416 H Neut % (Auto) 89.9 H Lymph % (Auto) 2.5 L [place] % (Auto) 7.3 Eos % (Auto) 0.0 L Baso % (Auto) 0.3 Neut # (Auto) 85230 H Lymph # (Auto) 600 L [place] # (Auto) 1700 H Eos # (Auto) 0 Baso # (Auto) 100 Sodium 134 L Potassium 4.3 Chloride 108 H Carbon Dioxide 17 L BUN 6 L Creatinine 0.85 Estimated GFR > 60 BUN/Creatinine Ratio 7.1 Glucose 130 H Uric Acid Calcium 7.8 L Total Bilirubin 1.1 AST 121 H ALT 104 H Alkaline Phosphatase 188 H Total Protein 5.9 L Albumin 2.7 L Globulin 3.2 Albumin/Globulin Ratio 0.8 L Urine Color Urine Appearance Urine pH Ur Specific [place] Urine Protein Urine Glucose (UA) Urine Ketones Urine Occult Blood Urine Nitrate Urine Bilirubin Ur Bilirubin Confirm Urine Urobilinogen Ur Leukocyte Esterase Urine RBC Urine WBC Ur Squamous Epith Cells Urine Bacteria Ur Culture Indicated? U Opiates 300ng/mL cut Ur Oxycodone Screen Urine Methadone Screen Ur Barbiturates Screen U Tricyclic Antidepress Ur Phencyclidine Scrn Ur Amphetamines Screen U Methamphetamines Scrn Ur MDMA Scrn (Ecstasy) U Benzodiazepines Scrn Urine Cocaine Screen U Marijuana (THC) Screen SARS-CoV-2 (PCR) Blood Type Antibody Screen Assessment & Plan Assessment & Plan narrative: patient seen with bedside nurse chart/labs/imaging reivewed 41 year old female with no pre-luke care admitted with pre-ecclampsia was scheduled for emergency had epidrual placed and had vaginal delivery had 1 episode of hypoxia currently febrile, tachycardic to 100s, hypertensive labs significant for anemia to hgb of 8.5 bicarb 17 wbc 15 platelets 421 elevated LFTs cxr b/l infiltrates suggest -neurochecks/seizure precautions -mag drip protocol per ob gaol 4-6 -monitor reflexes while on drip -check mag q6 -labetolol drip for bp, goal less than 160s -monitor for withdrawal, can use ativan prn for agitation, monitor for resp depression -minimize ivf -can hold of diuretics for now, if resp distress can re-eval -check venous duplex to rule out dvt if -ve can consider rule out PE with CTA -check echo -check serial ekg/trop -check cxs, start abx -monitor ins/outs -keep glucose 14-180s -gi/dvt ppx -please call eICU as needed -discussed in detail with Dr. Kim Time Spent With Patient Critical Care time: I spent a total of [] minutes of critical care time on this patient's care today; this time is exclusive of procedural time.
[2022-03-24 10:37] LABS: Magnesium 3.5 mg/dL (1.6-2.3)
--- NOTE | 2022-03-24 10:47 | DI.US.S_ITS ---
PROCEDURE: US PERIPH VENOUS LOW EXTREM BI INDICATIONS: Please evaluate for dvt TECHNIQUE: Real-time imaging, as well as color and pulse Doppler interrogation, were performed of the deep veins of both legs from the inguinal ligament to the popliteal fossa. COMPARISON: None. FINDINGS: Right: The common femoral, femoral and popliteal veins are normally compressible, and free of intraluminal thrombus. Color and pulse Doppler demonstrate normal phasic intravascular flow. There is normal augmentation response to distal compression maneuver. Left: The common femoral, femoral and popliteal veins are normally compressible, and free of intraluminal thrombus. Color and pulse Doppler demonstrate normal phasic intravascular flow. There is normal augmentation response to distal compression maneuver. This study is limited by body habitus. IMPRESSION: Negative for deep venous thrombosis. Dictated by: Ap Larry M.D. on 03/24/2022 at 15:17 Approved by: Ap Larry M.D. on 03/24/2022 at 15:18
[2022-03-24] MEDS: LORazepam 2 MG/ML INJ IV (10:53)
--- NOTE | 2022-03-24 11:08 | DI.ECHO.S_ITS ---
[facility]---------+ [facility] +---------+ : : [address] : : : : [id number] : : : : Phone: [phone]+ Echocardiogram Report + + :Name: AMOS SMITH Study Date: 03/24/2022 Height: 65.5 in: :[facility] ReadingLocation: Weight: 233 lb : : Gender: Female BSA: 2.1 m2 : :: 1980 Age: 41 yrs BP: 162/79 mmHg: :Reason For Study: ACUTE EDEMA POST : :Ordering Physician: BHASKAR, : :NIKHIL Performed By: Mary Keys : :Referring: NIKHIL MURO : + + Interpretation Summary 1) Normal left ventricular thickness, size, wall motion, and systolic function (EF 60-65%). 2) Normal right ventricular size and function. 3) No significant valvular abnormalities. 4) The right ventricular systolic pressure is estimated to be at least 44 mmHg based on an estimated right atrial pressure of 8 mm Hg. 5) There is a trivial pericardial effusion noted. 6) Hypertension present during the study (BP 162/79mmHg). 7) No prior Echo available for comparison. Procedure: A two-dimensional transthoracic echocardiogram with color flow and Doppler was performed. The study quality was technically difficult. There is no prior echocardiogram noted for this patient. The patient was in sinus tachycardia with heart rates between 92-113 bpm during the exam. Left Ventricle: The left ventricle is normal in size and wall thickness. The ejection fraction is estimated to be 60-65%. Left ventricular systolic function appears normal without focal wall motion abnormalities. Diastolic function could not be accurately assessed due to tachycardia. Right Ventricle: The right ventricle is normal in size and function. Atria: The left atrial size is normal. Right atrial size is normal. There is no Doppler evidence for an interatrial shunt. Mitral Valve: The mitral valve leaflets appear borderline thickened, but open well. There is mild mitral regurgitation. Aortic Valve: The aortic valve is not well visualized. There is no aortic valve stenosis. No aortic regurgitation is present. Tricuspid Valve: The tricuspid valve is normal in structure and function. The right ventricular systolic pressure is estimated to be at least 44 mmHg based on an estimated right atrial pressure of 8 mm Hg. There is mild tricuspid regurgitation. Pulmonic Valve: The pulmonic valve leaflets are thin and pliable; valve motion is normal. There is no pulmonic valvular regurgitation. Great Vessels: The aortic root is normal size. The dimensions of the ascending aorta are normal. The IVC is dilated (diameter is greater than 2.1 cm) yet it collapses greater than 50% with a sniff. This suggests a right atrial pressure of 8 mm Hg. Pericardium/ Pleura There is a trivial pericardial effusion noted. MMode/2D Measurements & Calculations LVIDd: 5.0 cm LVOT diam: 2.0 cm LVIDs: 3.1 cm Ao root diam: 2.9 cm FS: 38.3 % asc Aorta Diam: 3.3 cm IVSd: 0.88 cm Ao Arch Diam (Prox Trans): 2.5 cm LVPWd: 1.0 cm LV hernandez. diameter/BSA (cm/m^2): 2.3 LV sys. diameter/BSA (cm/m^2): 1.4 LA A2 area: 20.3 cm2 RA long axis: 4.9 cm LA A4 area: 16.4 cm2 RA area: 17.9 cm2 LA length (vol): 5.3 cm RA vol: 55.9 ml LA vol: 53.5 ml RA : 26.3 ml/m2 LA vol index: 25.2 ml/m2 IVC diam: 2.4 cm RVD1 (basal): 3.5 cm RVD2 (mid): 3.2 cm TAPSE: 2.0 cm Doppler Measurements & Calculations Ao V2 max: 169.1 cm/sec LVOT Max Narendra: 121.4 cm/sec Ao V2 mean: 122.5 cm/sec LV V1 max P.9 mmHg Ao max P.4 mmHg LV V1 VTI: 21.6 cm Ao mean P.4 mmHg DAPHNE(I,D): 2.3 cm2 Ao V2 VTI: 29.0 cm DAPHNE(V,D): 2.2 cm2 sev ratio: 0.74 DAPHNE indexed to BSA (cm^2/m^2): 1.1 MV E max narendra: 109.0 cm/sec TR max narendra: 301.8 cm/sec Med Peak E' Narendra: 11.7 cm/sec TR max P.4 mmHg E/E' med: 9.3 PA V2 max: 119.9 cm/sec Lat Peak E' Narendra: 8.6 cm/sec PA V2 mean: 78.0 cm/sec E/E' lat: 12.7 PA mean P.7 mmHg E/e' average: 11.0 PA pr(Accel): 43.0 mmHg SV(LVOT): 67.7 ml Reading Physician:02:59 PM
--- NOTE | 2022-03-24 11:47 | DI.RAD.S_ITS ---
PROCEDURE: XR CHEST FOR PICC 1V INDICATIONS: picc placement confirmation COMPARISON: [facility], CR, XR CHEST 1V, 03/24/2022, 7:40. FINDINGS: PICC was placed by the intravenous therapy team from the left side. Fluoroscopic spot film demonstrates the tip of PICC projecting to the area of proximal SVC. Patchy bilateral pulmonary opacities are unchanged compared to prior exam. IMPRESSION: Tip of PICC projects to the area of proximal SVC. Dictated by: Lesvia Jeong M.D. on 03/24/2022 at 13:54 Approved by: Lesvia Jeong M.D. on 03/24/2022 at 13:55
[2022-03-24 11:52] LABS: HCO3 ABG 18 mmol/L (22-26); PO2 ABG 78 mmHg (80-100); TCO2 ABG 19 mmol/L (21-31); pH ABG 7.44 (7.35-7.45)
[2022-03-24 11:53] LABS: Fractionated Inspired Oxygen 21; Oxygen Saturation ABG 96 % (95-100)
[2022-03-24 11:55] LABS: Hep C Virus Ab w/Reflex Quant NEGATIVE s/c (NEGATIVE); Hepatitis B Surface Antigen NEGATIVE s/c (NEGATIVE)
[2022-03-24 11:56] LABS: HIV 1 & 2 Ab/Ag 4th Gen Combo NEGATIVE (NEGATIVE)
--- NOTE | 2022-03-24 12:50 | PC.NURSE ---
1st pad with scant drainage (half pad) only noted over last 3 hours. Beth care provided and pad changed. Fundus remains firm at umbilicus. Patient lethargic but arousable, reflexes remain WNL. PICC line placed by DI nurse, patient tolerated well. ECHO to bedside.
--- NOTE | 2022-03-24 14:14 | SUR.OPER ---
late Entry-Patient verbalized understanding of plan of care.
--- NOTE | 2022-03-24 15:18 | PC.NURSE ---
Addendum entered by Selam Alcala R.N. 03/24/22 15:42: PT REMAINS NON-VERBAL OHTER THAN GRUNTS AND MOANING- WHEN QUESTIONED RE: SEEING HER BABY SHE DECLINED TO COMMENT- PAD CHANGED DUE TO MODERATE RED BLOODY FLOW- HR 98-100BPM, ROOM AIR SPO2 100% RR 24 - UOP MODERATE, UPDATE TO [facility] RN'S CARING FOR THE BABY Original Note: PT BELONGINGS: PT HAS 8 RINGS ON HER FINGERS AND ONE OFF IN CONTAINER AT BEDSIDE WELL 5 METAL BRACELETS WHICH REMAIN ON PT
[2022-03-24 16:41] LABS: Magnesium 4.2 mg/dL (1.6-2.3)
--- NOTE | 2022-03-24 16:50 | PC.NURSE ---
Assuming care of patient from Primary RN at this time. Patient lethargic, sleeping in bed but awakens slowly to voice. Patient very withdrawn and mostly answering questions with grunts. Once questioned further she did respond appropriately- states what brought her in I was in labor, and I had a baby. Assisted patient to turn in bed, changed linens and changed out pad,m with nahed care provided. Patient refused ice pack, declined motrin. Declines to see her baby at this time, states she is too tired. She states she lives in [place] but does not give further details on support, but states she does not want me to call anyone yet. Blanco remains in place draining clear yellow urine. DOuble lumen PICC to left upper arm in place, with magnesium gtt infusing as ordered. Reflexes remain 2+, no clonus. Patient states she is very thirsty and sitting upright in bed now to drink water and juice. Dr. Blair notified of elevating BP's and prn order for labetalol received. Will continue to monitor.
[2022-03-24] MEDS: LABETALOL 20 MG/4 ML SYRINGE 10 MG IV ×2 (17:20→23:02)
[2022-03-24] MEDS: MEASLES,MUMPS,RUBELLA VACC/PF 0.5 ML VIAL SUBCUT (17:34)
[2022-03-24] MEDS: TET,DIPH,PERTUSS(ACELL),VAC/PF 0.5 ML SYRINGE IM (17:38)
--- NOTE | 2022-03-24 17:50 | CM.SWNOTE ---
CODER Note CODER receives CODER consult from Center. Patient is 41 y/o female who gave to baby shawanda Gatica on 03/24/22. Per L&D RN Kait, patient tested positive for Opiates, Amphetamines and Methamphetamine. Patient's baby was also born positive for substances. Per L&D RN, patient did not have care and does not have custody of her 4 other children. Kait RN reports this to CPS today with intake # [id number] and states she spoke with Eliel Roy. Patient is currently in the ICU requiring further medical care. Patient's baby is currently in L&D. Plan: f/u with CPS for appropriate POC for patient's baby. DAIANA Oneill
--- NOTE | 2022-03-24 18:19 | P.HPOB_ITS ---
OB HPI Date/Time Date of admission: 03/24/22 Date Patient Seen: 03/24/22 Time Patient Seen: 05:25 History of Present Condition Chief complaint: labor Estimated Gestational Age (weeks): 39+2 : 5 Para: 4 care: none Ultrasounds: none Obstetrical complications: other (No care) Medical complications OB: psychiatric (Multi drug use) Indications Operative indications ( section): preeclampsia (Severe) Preadmission Labs Last OB Lab Results: Blood Type A Positive 03/24/22 07:23 Antibody Screen Negative 03/24/22 07:23 Hematocrit 24.5 % (36-46) L 03/24/22 10:04 Hemoglobin 7.9 g/dL (12.0-16.0) L 03/24/22 10:04 Hepatitis B Surface Antigen Negative s/c (NEGATIVE) 03/24/22 10 :04 Hepatitis C Antibody Negative s/c (NEGATIVE) 03/24/22 10:04 Rubella Antibody 3.0 IU/mL (>15) L 03/24/22 10:04 Evaluation Evaluation Baseline heart rate: 135 Variability: Average (6-10) monitor accelerations: Present Monitor Decelerations: Absent Uterine Contraction Intensity: Strong/Firm Status: Category l Dilation (cm): 10 Effacement (%): 100 station: +1 PFSH Medical History COVID-19 Dental abscess Social History (System 03/24/22 @ 08:23 by Mary Vera) household members: other Smoking Status: Never smoker substance use type: marijuana, tranquilizers and methamphetamine Meds Home Medications and Allergies Home Medications Medication Instructions Recorded Confirmed Type No Known Home Medications 01/24/21 03/24/22 History Allergies Allergy/AdvReac Type Severity Reaction Status Date / Time Penicillins [PENICILLINS] Allergy Unknown Verified 03/24/22 08:23 OB Exam Narrative Exam Narrative: Generally: Patient out of control in pain HEENT: Very poor dental hygiene Fundal height: 41 cm Estimated weight: Unknown Extremities: 2+ pitting edema up to the thighs, 3+ DTRs, 2 beats of clonus Objective Labs Result Diagrams: 03/24/22 10:04 03/24/22 Unknown Labs: Laboratory Results - last 24 hr 03/24/22 03/24/2203/24/22 05:20 05:20 07:14 WBC 15.8 H RBC 3.43 L Hgb 8.5 L Hct 25.8 L MCV 75.4 L MCH 24.7 L MCHC 32.8 RDW 17.5 H Plt Count 421 H Neut % (Auto) 90.7 H Lymph % (Auto) 3.6 L [place] % (Auto) 5.0 Eos % (Auto) 0.1 L Baso % (Auto) 0.6 Neut # (Auto) 18805 H Lymph # (Auto) 600 L [place] # (Auto) 800 Eos # (Auto) 0 Baso # (Auto) 100 ABG pH ABG pCO2 ABG pO2 ABG HCO3 ABG Total CO2 ABG O2 Saturation ABG Base Excess FiO2 Sodium Potassium Chloride Carbon Dioxide BUN Creatinine Estimated GFR BUN/Creatinine Ratio Glucose Uric Acid Calcium Magnesium Total Bilirubin AST ALT Alkaline Phosphatase Total Protein Albumin Globulin Albumin/Globulin Ratio Urine Color [place] Urine Appearance Cloudy Urine pH 5.5 Ur Specific [place] >=1.030 H Urine Protein 3+ H Urine Glucose (UA) Negative Urine Ketones Trace H Urine Occult Blood 2+ H Urine Nitrate Negative Urine Bilirubin 2+ H Ur Bilirubin Confirm Negative Urine Urobilinogen 2.0 H Ur Leukocyte Esterase Trace H Urine RBC 10-30/hpf H Urine WBC 1-5/hpf Ur Squamous Epith Cells 5-10 /hpf H Urine Bacteria Many (>30) H Ur Culture Indicated? Cult not indicated U Opiates 300ng/mL cut Ur Oxycodone Screen Urine Methadone Screen Ur Barbiturates Screen U Tricyclic Antidepress Ur Phencyclidine Scrn Ur Amphetamines Screen U Methamphetamines Scrn Ur MDMA Scrn (Ecstasy) U Benzodiazepines Scrn Urine Cocaine Screen U Marijuana (THC) Screen SARS-CoV-2 (PCR) Negative Hep Bs Antigen Hepatitis C Antibody HIV 1&2 Ab/P24 Ag 4thGn Rubella Antibody Blood Type Antibody Screen 03/24/22 03/24/22 03/24/22 07:23 07:37 07:56 WBC RBC Hgb Hct MCV MCH MCHC RDW Plt Count Neut % (Auto) Lymph % (Auto) [place] % (Auto) Eos % (Auto) Baso % (Auto) Neut # (Auto) Lymph # (Auto) [place] # (Auto) Eos # (Auto) Baso # (Auto) ABG pH ABG pCO2 ABG pO2 ABG HCO3 ABG Total CO2 ABG O2 Saturation ABG Base Excess FiO2 Sodium Potassium Chloride Carbon Dioxide BUN 6 L Creatinine 0.85 Estimated GFR > 60 BUN/Creatinine Ratio 7.1 Glucose Uric Acid 7.6 H Calcium Magnesium Total Bilirubin AST 119 H ALT Alkaline Phosphatase Total Protein Albumin Globulin Albumin/Globulin Ratio Urine Color Urine Appearance Urine pH Ur Specific [place] Urine Protein Urine Glucose (UA) Urine Ketones Urine Occult Blood Urine Nitrate Urine Bilirubin Ur Bilirubin Confirm Urine Urobilinogen Ur Leukocyte Esterase Urine RBC Urine WBC Ur Squamous Epith Cells Urine Bacteria Ur Culture Indicated? U Opiates 300ng/mL cut Positive H Ur Oxycodone Screen Negative Urine Methadone Screen Negative Ur Barbiturates Screen Negative U Tricyclic Antidepress Negative Ur Phencyclidine Scrn Negative Ur Amphetamines Screen Positive H U Methamphetamines Scrn Positive H Ur MDMA Scrn (Ecstasy) Negative U Benzodiazepines Scrn Negative Urine Cocaine Screen Negative U Marijuana (THC) Screen Positive H SARS-CoV-2 (PCR) Hep Bs Antigen Hepatitis C Antibody HIV 1&2 Ab/P24 Ag 4thGn Rubella Antibody Blood Type A Positive Antibody Screen Negative 03/24/22 03/24/22 03/24/22 10:04 10:04 10:04 WBC 22.7 H RBC 3.26 L Hgb 7.9 L Hct 24.5 L MCV 75.3 L MCH 24.3 L MCHC 32.3 RDW 17.6 H Plt Count 416 H Neut % (Auto) 89.9 H Lymph % (Auto) 2.5 L [place] % (Auto) 7.3 Eos % (Auto) 0.0 L Baso % (Auto) 0.3 Neut # (Auto) 87867 H Lymph # (Auto) 600 L [place] # (Auto) 1700 H Eos # (Auto) 0 Baso # (Auto) 100 ABG pH ABG pCO2 ABG pO2 ABG HCO3 ABG Total CO2 ABG O2 Saturation ABG Base Excess FiO2 Sodium Potassium Chloride Carbon Dioxide BUN Creatinine Estimated GFR BUN/Creatinine Ratio Glucose Uric Acid Calcium Magnesium 3.5 H Total Bilirubin AST ALT Alkaline Phosphatase Total Protein Albumin Globulin Albumin/Globulin Ratio Urine Color Urine Appearance Urine pH Ur Specific [place] Urine Protein Urine Glucose (UA) Urine Ketones Urine Occult Blood Urine Nitrate Urine Bilirubin Ur Bilirubin Confirm Urine Urobilinogen Ur Leukocyte Esterase Urine RBC Urine WBC Ur Squamous Epith Cells Urine Bacteria Ur Culture Indicated? U Opiates 300ng/mL cut Ur Oxycodone Screen Urine Methadone Screen Ur Barbiturates Screen U Tricyclic Antidepress Ur Phencyclidine Scrn Ur Amphetamines Screen U Methamphetamines Scrn Ur MDMA Scrn (Ecstasy) U Benzodiazepines Scrn Urine Cocaine Screen U Marijuana (THC) Screen SARS-CoV-2 (PCR) Hep Bs Antigen Negative Hepatitis C Antibody Negative HIV 1&2 Ab/P24 Ag 4thGn Negative Rubella Antibody 3.0 L Blood Type Antibody Screen 03/24/22 03/24/22 03/24/22 11:25 16:15 Unknown WBC RBC Hgb Hct MCV MCH MCHC RDW Plt Count Neut % (Auto) Lymph % (Auto) [place] % (Auto) Eos % (Auto) Baso % (Auto) Neut # (Auto) Lymph # (Auto) [place] # (Auto) Eos # (Auto) Baso # (Auto) ABG pH 7.44 ABG pCO2 26.0 L ABG pO2 78 L ABG HCO3 18 L ABG Total CO2 19 L ABG O2 Saturation 96 ABG Base Excess -6.0 L FiO2 21 Sodium 134 L Potassium 4.3 Chloride 108 H Carbon Dioxide 17 L BUN 6 L Creatinine 0.85 Estimated GFR > 60 BUN/Creatinine Ratio 7.1 Glucose 130 H Uric Acid Calcium 7.8 L Magnesium 4.2 H Total Bilirubin 1.1 AST 121 H ALT 104 H Alkaline Phosphatase 188 H Total Protein 5.9 L Albumin 2.7 L Globulin 3.2 Albumin/Globulin Ratio 0.8 L Urine Color Urine Appearance Urine pH Ur Specific [place] Urine Protein Urine Glucose (UA) Urine Ketones Urine Occult Blood Urine Nitrate Urine Bilirubin Ur Bilirubin Confirm Urine Urobilinogen Ur Leukocyte Esterase Urine RBC Urine WBC Ur Squamous Epith Cells Urine Bacteria Ur Culture Indicated? U Opiates 300ng/mL cut Ur Oxycodone Screen Urine Methadone Screen Ur Barbiturates Screen U Tricyclic Antidepress Ur Phencyclidine Scrn Ur Amphetamines Screen U Methamphetamines Scrn Ur MDMA Scrn (Ecstasy) U Benzodiazepines Scrn Urine Cocaine Screen U Marijuana (THC) Screen SARS-CoV-2 (PCR) Hep Bs Antigen Hepatitis C Antibody HIV 1&2 Ab/P24 Ag 4thGn Rubella Antibody Blood Type Antibody Screen Assessment and Plan Assessment and Plan Assessment and Plan narrative: Assessment: 41-year-old 5 para 4 at approximately 30-,2/7 weeks gestation by patient's stated SILVIO of March 29, 2022. Severe preeclampsia Imminent delivery Plan: IV labetalol to control blood pressure Magnesium sulfate Urine tox OB labs CMP and CBC Pediatrics and RT notified Expectant management to spontaneous vaginal delivery Time Spent with Patient Total time spent with greater than 50% in coordination of care (as documented) at patient's floor/unit and/or counseling patient:: Greater than 35 minutes
--- NOTE | 2022-03-24 18:28 | PM.PN.1 ---
Subjective Subjective Date Patient Seen: 03/24/22 Time Patient Seen: 18:28 Interval history: Patient is a 41-year-old 5 para 5 who delivered this morning with a spontaneous vaginal delivery with spinal anesthesia. She presented in active labor with no care. Urine tox positive for opiates, methamphetamine, and marijuana. She was transferred to the intensive care unit after the delivery which happened in the operating room due to severe preeclampsia. Her urine output has been over 100 cc an hour. Her labs have been stable. She is on magnesium sulfate maintenance at 2 g an hour. Most recent Mag level 4.2. Exam Vital Signs (past 8 hours): - 03/24/22 10:38 03/24/22 12:00 03/24/22 12:51 Temperature Pulse Rate 99 H 102 H 107 H Respiratory Rate 26 H 22 29 H Blood Pressure 160/82 H 162/79 H Pulse Oximetry 96 99 100 Oxygen Delivery Method Oxygen Flow Rate 0 0 0 03/24/22 12:56 03/24/22 13:00 03/24/22 14:00 Temperature 98.2 F 98.6 F Pulse Rate 102 H 97 H Respiratory Rate 21 23 Blood Pressure 169/84 H 164/85 H Pulse Oximetry 98 100 Oxygen Delivery Method Room Air Oxygen Flow Rate 0 0 03/24/22 14:51 03/24/22 14:51 03/24/22 15:01 Temperature Pulse Rate 98 H 101 H Respiratory Rate 25 H 22 Blood Pressure 164/85 H 164/86 H Pulse Oximetry 100 100 Oxygen Delivery Method Room Air Oxygen Flow Rate 0 0 03/24/22 16:00 03/24/22 17:00 03/24/22 17:00 Temperature 98.9 F 99.8 F H Pulse Rate 99 H 111 H 100 H Respiratory Rate 23 22 23 Blood Pressure 177/94 H 169/81 H 169/81 H Pulse Oximetry 99 96 99 Oxygen Delivery Method Oxygen Flow Rate 0 0 03/24/22 17:24 03/24/22 17:30 03/24/22 17:42 Temperature Pulse Rate 111 H 101 H 97 H Respiratory Rate 25 H 23 20 Blood Pressure 162/81 H Pulse Oximetry 96 95 96 Oxygen Delivery Method Oxygen Flow Rate 03/24/22 17:42 03/24/22 17:50 03/24/22 18:00 Temperature 99.3 F Pulse Rate 99 H 103 H Respiratory Rate 19 Blood Pressure 160/87 H 160/87 H 167/87 H Pulse Oximetry 96 Oxygen Delivery Method Oxygen Flow Rate 0 Oxygen Delivery Method Room Air Oxygen Flow Rate 0 Narrative Exam Narrative: Generally: Patient sitting up in bed, quite lethargic. Lungs: Clear to auscultation bilaterally Cardiovascular: Regular rate and rhythm Fundus: Firm at U Extremities: 1+ DTRs, no clonus, 2+ pitting edema above the knee Objective Labs Result Diagrams: 03/24/22 10:04 03/24/22 Unknown Labs: Laboratory Results - last 24 hr 03/24/22 03/24/22 03/24/22 05:20 05:20 07:14 WBC 15.8 H RBC 3.43 L Hgb 8.5 L Hct 25.8 L MCV 75.4 L MCH 24.7 L MCHC 32.8 RDW 17.5 H Plt Count 421 H Neut % (Auto) 90.7 H Lymph % (Auto) 3.6 L [place] % (Auto) 5.0 Eos % (Auto) 0.1 L Baso % (Auto) 0.6 Neut # (Auto) 30858 H Lymph # (Auto) 600 L [place] # (Auto) 800 Eos # (Auto) 0 Baso # (Auto) 100 ABG pH ABG pCO2 ABG pO2 ABG HCO3 ABG Total CO2 ABG O2 Saturation ABG Base Excess FiO2 Sodium Potassium Chloride Carbon Dioxide BUN Creatinine Estimated GFR BUN/Creatinine Ratio Glucose Uric Acid Calcium Magnesium Total Bilirubin AST ALT Alkaline Phosphatase Total Protein Albumin Globulin Albumin/Globulin Ratio Urine Color [place] Urine Appearance Cloudy Urine pH 5.5 Ur Specific [place] >=1.030 H Urine Protein 3+ H Urine Glucose (UA) Negative Urine Ketones Trace H Urine Occult Blood 2+ H Urine Nitrate Negative Urine Bilirubin 2+ H Ur Bilirubin Confirm Negative Urine Urobilinogen 2.0 H Ur Leukocyte Esterase Trace H Urine RBC 10-30/hpf H Urine WBC 1-5/hpf Ur Squamous Epith Cells 5-10 /hpf H Urine Bacteria Many (>30) H Ur Culture Indicated? Cult not indicated U Opiates 300ng/mL cut Ur Oxycodone Screen Urine Methadone Screen Ur Barbiturates Screen U Tricyclic Antidepress Ur Phencyclidine Scrn Ur Amphetamines Screen U Methamphetamines Scrn Ur MDMA Scrn (Ecstasy) U Benzodiazepines Scrn Urine Cocaine Screen U Marijuana (THC) Screen SARS-CoV-2 (PCR) Negative Hep Bs Antigen Hepatitis C Antibody HIV 1&2 Ab/P24 Ag 4thGn Rubella Antibody Blood Type Antibody Screen 03/24/22 03/24/22 03/24/22 07:23 07:37 07:56 WBC RBC Hgb Hct MCV MCH MCHC RDW Plt Count Neut % (Auto) Lymph % (Auto) [place] % (Auto) Eos % (Auto) Baso % (Auto) Neut # (Auto) Lymph # (Auto) [place] # (Auto) Eos # (Auto) Baso # (Auto) ABG pH ABG pCO2 ABG pO2 ABG HCO3 ABG Total CO2 ABG O2 Saturation ABG Base Excess FiO2 Sodium Potassium Chloride Carbon Dioxide BUN 6 L Creatinine 0.85 Estimated GFR > 60 BUN/Creatinine Ratio 7.1 Glucose Uric Acid 7.6 H Calcium Magnesium Total Bilirubin AST 119 H ALT Alkaline Phosphatase Total Protein Albumin Globulin Albumin/Globulin Ratio Urine Color Urine Appearance Urine pH Ur Specific [place] Urine Protein Urine Glucose (UA) Urine Ketones Urine Occult Blood Urine Nitrate Urine Bilirubin Ur Bilirubin Confirm Urine Urobilinogen Ur Leukocyte Esterase Urine RBC Urine WBC Ur Squamous Epith Cells Urine Bacteria Ur Culture Indicated? U Opiates 300ng/mL cut Positive H Ur Oxycodone Screen Negative Urine Methadone Screen Negative Ur Barbiturates Screen Negative U Tricyclic Antidepress Negative Ur Phencyclidine Scrn Negative Ur Amphetamines Screen Positive H U Methamphetamines Scrn Positive H Ur MDMA Scrn (Ecstasy) Negative U Benzodiazepines Scrn Negative Urine Cocaine Screen Negative U Marijuana (THC) Screen Positive H SARS-CoV-2 (PCR) Hep Bs Antigen Hepatitis C Antibody HIV 1&2 Ab/P24 Ag 4thGn Rubella Antibody Blood Type A Positive Antibody Screen Negative 03/24/22 03/24/22 03/24/22 10:04 10:04 10:04 WBC 22.7 H RBC 3.26 L Hgb 7.9 L Hct 24.5 L MCV 75.3 L MCH 24.3 L MCHC 32.3 RDW 17.6 H Plt Count 416 H Neut % (Auto) 89.9 H Lymph % (Auto) 2.5 L [place] % (Auto) 7.3 Eos % (Auto) 0.0 L Baso % (Auto) 0.3 Neut # (Auto) 40771 H Lymph # (Auto) 600 L [place] # (Auto) 1700 H Eos # (Auto) 0 Baso # (Auto) 100 ABG pH ABG pCO2 ABG pO2 ABG HCO3 ABG Total CO2 ABG O2 Saturation ABG Base Excess FiO2 Sodium Potassium Chloride Carbon Dioxide BUN Creatinine Estimated GFR BUN/Creatinine Ratio Glucose Uric Acid Calcium Magnesium 3.5 H Total Bilirubin AST ALT Alkaline Phosphatase Total Protein Albumin Globulin Albumin/Globulin Ratio Urine Color Urine Appearance Urine pH Ur Specific [place] Urine Protein Urine Glucose (UA) Urine Ketones Urine Occult Blood Urine Nitrate Urine Bilirubin Ur Bilirubin Confirm Urine Urobilinogen Ur Leukocyte Esterase Urine RBC Urine WBC Ur Squamous Epith Cells Urine Bacteria Ur Culture Indicated? U Opiates 300ng/mL cut Ur Oxycodone Screen Urine Methadone Screen Ur Barbiturates Screen U Tricyclic Antidepress Ur Phencyclidine Scrn Ur Amphetamines Screen U Methamphetamines Scrn Ur MDMA Scrn (Ecstasy) U Benzodiazepines Scrn Urine Cocaine Screen U Marijuana (THC) Screen SARS-CoV-2 (PCR) Hep Bs Antigen Negative Hepatitis C Antibody Negative HIV 1&2 Ab/P24 Ag 4thGn Negative Rubella Antibody 3.0 L Blood Type Antibody Screen 03/24/22 03/24/22 03/24/22 11:25 16:15 Unknown WBC RBC Hgb Hct MCV MCH MCHC RDW Plt Count Neut % (Auto) Lymph % (Auto) [place] % (Auto) Eos % (Auto) Baso % (Auto) Neut # (Auto) Lymph # (Auto) [place] # (Auto) Eos # (Auto) Baso # (Auto) ABG pH 7.44 ABG pCO2 26.0 L ABG pO2 78 L ABG HCO3 18 L ABG Total CO2 19 L ABG O2 Saturation 96 ABG Base Excess -6.0 L FiO2 21 Sodium 134 L Potassium 4.3 Chloride 108 H Carbon Dioxide 17 L BUN 6 L Creatinine 0.85 Estimated GFR > 60 BUN/Creatinine Ratio 7.1 Glucose 130 H Uric Acid Calcium 7.8 L Magnesium 4.2 H Total Bilirubin 1.1 AST 121 H ALT 104 H Alkaline Phosphatase 188 H Total Protein 5.9 L Albumin 2.7 L Globulin 3.2 Albumin/Globulin Ratio 0.8 L Urine Color Urine Appearance Urine pH Ur Specific [place] Urine Protein Urine Glucose (UA) Urine Ketones Urine Occult Blood Urine Nitrate Urine Bilirubin Ur Bilirubin Confirm Urine Urobilinogen Ur Leukocyte Esterase Urine RBC Urine WBC Ur Squamous Epith Cells Urine Bacteria Ur Culture Indicated? U Opiates 300ng/mL cut Ur Oxycodone Screen Urine Methadone Screen Ur Barbiturates Screen U Tricyclic Antidepress Ur Phencyclidine Scrn Ur Amphetamines Screen U Methamphetamines Scrn Ur MDMA Scrn (Ecstasy) U Benzodiazepines Scrn Urine Cocaine Screen U Marijuana (THC) Screen SARS-CoV-2 (PCR) Hep Bs Antigen Hepatitis C Antibody HIV 1&2 Ab/P24 Ag 4thGn Rubella Antibody Blood Type Antibody Screen PFSH Medical History COVID-19 Dental abscess Social History (System 03/24/22 @ 08:23 by Mary Vera) household members: other Smoking Status: Never smoker substance use type: marijuana, tranquilizers and methamphetamine Assessment & Plan Assessment & Plan narrative: Assessment: 41-year-old 5 para 5 day # 0 status post spontaneous vaginal delivery after no care Severe preeclampsia, blood pressure is fairly well controlled with IV labetalol On magnesium sulfate Plan: Continue magnesium sulfate for at least 24 hours Q.6 hour magnesium levels Repeat labs with 4:00 a.m. magnesium level Possible diuresis tomorrow Time Spent With Patient Time with patient: less than 30 minutes Critical Care time: I spent a total of [] minutes of critical care time on this patient's care today; this time is exclusive of procedural time.
--- NOTE | 2022-03-24 20:34 | PM.ICURNDS ---
- :: This patient was seen via real time interactive two-way audiovisual telecommunication. Note: Patient is a 41 year old female who is admitted for pre-ecclampsia and underwent emergent vaginal delivery. Received labetalol X1. Currently on room air with SpO2 94% and BP 160/81. Patient is awake and following commands. Added hydralazine 10 mg TID. Goal BP < 150/100. Discussed with Dr. Underwood and RN.
[2022-03-24] MEDS: HYDRALAZINE 10 MG TABLET PO (22:36)
[2022-03-24] MEDS: SODIUM CHLORIDE 0.9% FLUSH 10 ML IV (22:38)
[2022-03-24] MEDS: ACETAMINOPHEN 325 MG TABLET 650 MG PO (23:04)
[2022-03-24 23:24] LABS: Magnesium 5.5 mg/dL (1.6-2.3)
[2022-03-25] VITALS (51 sets, daily range): BP systolic 126–180; BP diastolic 58–103; PULSE 83–110; RESP 10–38; TEMP 36.2–37; O2SAT 92–100
[2022-03-25] MEDS: LORazepam 2 MG/ML INJ IV (01:51)
[2022-03-25 04:39] LABS: Add Manual Diff / Slide Review NO; Basophils Absolute Auto 100 /uL (0-100); Basophils Percent Auto 0.4 % (0-2); Eosinophils Absolute Auto 100 /uL (0-450); Eosinophils Percent Auto 0.4 % (2-4); Hemoglobin 7.3 g/dL (12.0-16.0); Lymphocytes Absolute Auto 1400 /uL (1100-4500); Lymphocytes Percent Auto 7.9 % (25-40); Mean Corpuscular HGB Conc 32.3 % (30-36); Mean Corpuscular Hemoglobin 24.3 PG (26-34); Mean Corpuscular Volume 75.2 fL (80-100); Monocytes Absolute Auto 1200 /uL (0-900); Neutrophils Absolute Auto 14500 /uL (1500-7000); Neutrophils Percent Auto 84.3 % (50-75); Platelet Count 401 X10^3/uL (150-400); Red Blood Cell Count 2.99 X10^6/uL (4.0-5.2); Red Cell Distribution Width 17.8 % (11.6-14.8); White Blood Cell Count 17.2 X10^3/uL (4.5-11.0)
[2022-03-25] MEDS: MAGNESIUM SULFATE 20 GM/500 ML IV.SOLN IV (04:39)
[2022-03-25] MEDS: LABETALOL 20 MG/4 ML SYRINGE 10 MG IV ×2 (04:42→09:46)
[2022-03-25 04:48] LABS: Hematocrit 22.5 % (36-46)
[2022-03-25 04:54] LABS: Alanine Aminotransferase 88 IU/L (<35); Albumin 2.4 g/dL (3.5-5.0); Albumin Globulin Ratio 0.8 (1.0-2.8); Alkaline Phosphatase 160 U/L (38-126); Aspartate Aminotransferase 78 IU/L (14-36); BUN Creatinine Ratio 7.6 (6-22); Bilirubin Total 0.7 mg/dL (0.2-1.3); Blood Urea Nitrogen 7 mg/dL (7-17); Calcium 6.7 mg/dL (8.4-10.2); Carbon Dioxide 22 mmol/L (22-32); Chloride 104 mmol/L (98-107); Estimated Glomerular Filt Rate > 60 mL/min (>60); Glucose 121 mg/dL (70-100); HEMOLYSIS < 15 (0-50); Potassium 4.6 mmol/L (3.4-5.1); Sodium 130 mmol/L (137-145); Total Protein 5.4 g/dL (6.3-8.2)
[2022-03-25 04:58] LABS: Magnesium 6.2 mg/dL (1.6-2.3)
[2022-03-25] MEDS: HYDRALAZINE 10 MG TABLET PO ×3 (06:17→22:28)
[2022-03-25 06:31] LABS: HBsAg Screen Negative (Negative); Hepatitis A Antibody IgM Negative (Negative); Hepatitis B Core Antibody IgM Negative (Negative); Hepatitis C Antibody <0.1 s/co ratio (0.0-0.9)
--- NOTE | 2022-03-25 06:52 | PC.NURSE ---
Addendum entered by Meenu Harris R.N. 03/25/22 07:32: Called and notified Dr. Blair patient RR 33, labored. See new orders, STAT CXR, ABG and put patient on BIPAP. RT notified of new orders. Gave bedside report to Maryellen DEUTSCH. Original Note: End of shift note. Care of Patient from [id number]. Patient lethargic, opens eyes to name, follows commands. DTR WNL +2, continues on Magnesium Sulfate gtt at 2grams/hr. This am Mg 6.2, Dr. Mendez, [facility] tier and Dr. Carlos A Coronel, OBGYN informed. SBP <160 with scheduled hydroxyzine po and Labetalol IV PRN given X2 during the night. RR 33 increasingly more labored this am, applied NC 2L at 0630. Changed three nahed pads during the night with moderate amount of SS drainage, no clots. Generalized +3 body edema, tight, puffy, non pitting. Baby was brought up this am for 15 minutes for mother to bui with by OB staff.
--- NOTE | 2022-03-25 07:29 | DI.RAD.S_ITS ---
PROCEDURE: XR CHEST 1V INDICATIONS: Labored RR 33, r/o pulmonary edema TECHNIQUE: One view of the chest was acquired. COMPARISON: [facility], CR, XR CHEST 1V, 03/24/2022, 7:40. [facility], CR, XR CHEST FOR PICC 1V, 03/24/2022, 11:48. FINDINGS: Surgical changes and devices: Left-sided PICC is seen with tip projecting over the region of the superior vena cava. Lungs and pleura: Bilateral patchy airspace opacities do not appear significantly changed when compared to the exam from the day prior. No pleural effusion or pneumothorax. Mediastinum: Mediastinal contours appear normal. Heart size is normal. Bones and chest wall: No suspicious bony lesions. Overlying soft tissues appear unremarkable. IMPRESSION: Stable bilateral airspace opacities, again possibly representing edema or pneumonia. Dictated by: Terry Acosta M.D. on 03/25/2022 at 8:16 Approved by: Terry Acosta M.D. on 03/25/2022 at 8:18
--- NOTE | 2022-03-25 08:08 | PM.EICU.INT ---
Teleintensivist Intervention Date/Time Was camera activated?: Yes Issue(s) Addressed Issue(s): Resp. Distress/Ventilator management Other:: patient seen for shortness of breath pt sat 97% on 2l NC, asking for ativan abg pa02 pH 7.45/71/24 on room air cxr showing b/l infiltrates mag level 6.2 suggest bipap/lasix/nebs will follow
[2022-03-25] MEDS: LORazepam 2 MG/ML INJ 0.5 MG IV (08:11)
[2022-03-25] MEDS: DOCUSATE 100 MG CAPSULE PO (08:13)
[2022-03-25] MEDS: ACETAMINOPHEN 325 MG TABLET 650 MG PO ×2 (08:14→21:05)
[2022-03-25] MEDS: PRENATAL VIT,CALC/IRON/FOLIC 1 TABLET 1 TAB PO (08:14)
[2022-03-25 08:15] LABS: pH ABG 7.45 (7.35-7.45)
[2022-03-25 08:16] LABS: Fractionated Inspired Oxygen 21; HCO3 ABG 20 mmol/L (22-26); Oxygen Saturation ABG 95 % (95-100); PCO2 ABG 28.5 mmHg (35-45); PO2 ABG 70 mmHg (80-100); TCO2 ABG 21 mmol/L (21-31)
[2022-03-25] MEDS: FUROSEMIDE 40 MG/4 ML VIAL IV (08:48)
[2022-03-25 08:52] LABS: RPR Screen Non Reactive (Non Reactive)
--- NOTE | 2022-03-25 09:06 | CM.SWNOTE ---
SW called CPS this morning and confirmed the referral made yesterday (intake #[id number]) DID screen in and currently the assigned CPS SW is Tamara Vallejo at the [facility] office and SW placed call to her work cell [phone] and left msg inquiring if bedside assessment/investigation would occur today and requested call back to [facility] to provide staff with an update. Plan: SW to continue to follow for further CPS coordination and d/c plan for MOB and baby boy. DAIANA Meredith
--- NOTE | 2022-03-25 09:37 | P.TELICUPN_ITS ---
Subjective Subjective Date Patient Seen: 03/25/22 Interval history: no acute events overnight short of breath this am placed on bipap given lasix Current Medications Current Medications Medications: Home Medications No Known Home Medications 01/24/21 [History Confirmed 03/24/22] Visit Medications (administered) Generic Name Dose Route Start Last Admin Trade Name Freq PRN Reason Stop Dose Admin Acetaminophen 650 mg 03/24/22 09:39 03/25/22 08:14 Acetaminophen 325 Mg Tablet PO 650 mg Q6HR PRN Administration Pain, Mild (1-3) Docusate Sodium 100 mg 03/24/22 09:39 03/25/22 08:13 Docusate 100 Mg Capsule PO 100 mg DAILY FRANCK Administration Hydralazine HCl 10 mg 03/24/22 20:50 03/25/22 06:17 Hydralazine 10 Mg Tablet PO 10 mg Q8HR FRANCK Administration Lactated Ringer's 1,000 mls @ 0 mls/hr 03/24/22 09:15 03/24/22 09:20 Lactated Ringers IV 10 mls/hr CONT FRANCK Administration TKO Magnesium Sulfate 20 gm in 500 mls @ 50 mls/hr 03/24/22 18:15 03/25/22 09:11 Magnesium Sulfate IV 0 mls/hr CONT FRANCK Infusion Labetalol HCl 10 mg 03/24/22 16:39 03/25/22 04:42 Labetalol 20 Mg/4 Ml Syringe IV 10 mg Q4HR PRN Administration Blood Pressure - High Lorazepam 0.5 mg 03/25/22 05:48 03/25/22 08:11 Lorazepam 2 Mg/Ml Inj IV 0.5 mg Q4HR PRN Administration Anxiety Vit/Calcium/Iron/Folic Ac 1 tab 03/24/22 09:39 03/25/22 08:14 Vit,Calc/Iron/Folic 1 Tablet PO 1 tab DAILY FRANCK Administration Sodium Chloride 10 ml 03/24/22 21:00 03/25/22 08:14 Sodium Chloride 0.9% Flush IV Not Given BID FRANCK Objective Labs Result Diagrams: 03/25/22 04:30 03/25/22 04:30 Labs: Laboratory Results - last 24 hr 03/24/22 03/24/22 03/24/22 10:04 10:04 10:04 WBC 22.7 H RBC 3.26 L Hgb 7.9 L Hct 24.5 L MCV 75.3 L MCH 24.3 L MCHC 32.3 RDW 17.6 H Plt Count 416 H Neut % (Auto) 89.9 H Lymph % (Auto) 2.5 L [place] % (Auto) 7.3 Eos % (Auto) 0.0 L Baso % (Auto) 0.3 Neut # (Auto) 18743 H Lymph # (Auto) 600 L [place] # (Auto) 1700 H Eos # (Auto) 0 Baso # (Auto) 100 ABG pH ABG pCO2 ABG pO2 ABG HCO3 ABG Total CO2 ABG O2 Saturation ABG Base Excess FiO2 Sodium Potassium Chloride Carbon Dioxide BUN Creatinine Estimated GFR BUN/Creatinine Ratio Glucose Calcium Magnesium Total Bilirubin AST ALT Alkaline Phosphatase Total Protein Albumin Globulin Albumin/Globulin Ratio Nasal Screen MRSA (PCR) Serum VDRL Non reactive Hepatitis A IgM Ab Negative Hep Bs Antigen Negative Negative Hep B Core IgM Ab Negative Hepatitis C Antibody Negative <0.1 Hep C Ab Signal/Cutoff Comment HIV 1&2 Ab/P24 Ag 4thGn Negative Rubella Antibody 3.0 L 03/24/22 03/24/22 03/24/22 10:04 10:15 11:25 WBC RBC Hgb Hct MCV MCH MCHC RDW Plt Count Neut % (Auto) Lymph % (Auto) [place] % (Auto) Eos % (Auto) Baso % (Auto) Neut # (Auto) Lymph # (Auto) [place] # (Auto) Eos # (Auto) Baso # (Auto) ABG pH 7.44 ABG pCO2 26.0 L ABG pO2 78 L ABG HCO3 18 L ABG Total CO2 19 L ABG O2 Saturation 96 ABG Base Excess -6.0 L FiO2 21 Sodium Potassium Chloride Carbon Dioxide BUN Creatinine Estimated GFR BUN/Creatinine Ratio Glucose Calcium Magnesium 3.5 H Total Bilirubin AST ALT Alkaline Phosphatase Total Protein Albumin Globulin Albumin/Globulin Ratio Nasal Screen MRSA (PCR) Negative for mrsa Serum VDRL Hepatitis A IgM Ab Hep Bs Antigen Hep B Core IgM Ab Hepatitis C Antibody Hep C Ab Signal/Cutoff HIV 1&2 Ab/P24 Ag 4thGn Rubella Antibody 03/24/22 03/24/22 03/25/22 16:15 22:45 04:30 WBC RBC Hgb Hct MCV MCH MCHC RDW Plt Count Neut % (Auto) Lymph % (Auto) [place] % (Auto) Eos % (Auto) Baso % (Auto) Neut # (Auto) Lymph # (Auto) [place] # (Auto) Eos # (Auto) Baso # (Auto) ABG pH ABG pCO2 ABG pO2 ABG HCO3 ABG Total CO2 ABG O2 Saturation ABG Base Excess FiO2 Sodium Potassium Chloride Carbon Dioxide BUN Creatinine Estimated GFR BUN/Creatinine Ratio Glucose Calcium Magnesium 4.2 H 5.5 H* 6.2 H* Total Bilirubin AST ALT Alkaline Phosphatase Total Protein Albumin Globulin Albumin/Globulin Ratio Nasal Screen MRSA (PCR) Serum VDRL Hepatitis A IgM Ab Hep Bs Antigen Hep B Core IgM Ab Hepatitis C Antibody Hep C Ab Signal/Cutoff HIV 1&2 Ab/P24 Ag 4thGn Rubella Antibody 03/25/22 03/25/22 03/25/22 04:30 04:30 07:50 WBC 17.2 H RBC 2.99 L Hgb 7.3 L Hct 22.5 L MCV 75.2 L MCH 24.3 L MCHC 32.3 RDW 17.8 H Plt Count 401 H Neut % (Auto) 84.3 H Lymph % (Auto) 7.9 L [place] % (Auto) 7.0 Eos % (Auto) 0.4 L Baso % (Auto) 0.4 Neut # (Auto) 29211 H Lymph # (Auto) 1400 [place] # (Auto) 1200 H Eos # (Auto) 100 Baso # (Auto) 100 ABG pH 7.45 ABG pCO2 28.5 L ABG pO2 70 L ABG HCO3 20 L ABG Total CO2 21 ABG O2 Saturation 95 ABG Base Excess -4.0 L FiO2 21 Sodium 130 L Potassium 4.6 Chloride 104 Carbon Dioxide 22 BUN 7 Creatinine 0.92 Estimated GFR > 60 BUN/Creatinine Ratio 7.6 Glucose 121 H Calcium 6.7 L Magnesium Total Bilirubin 0.7 AST 78 H ALT 88 H Alkaline Phosphatase 160 H Total Protein 5.4 L Albumin 2.4 L Globulin 3.0 Albumin/Globulin Ratio 0.8 L Nasal Screen MRSA (PCR) Serum VDRL Hepatitis A IgM Ab Hep Bs Antigen Hep B Core IgM Ab Hepatitis C Antibody Hep C Ab Signal/Cutoff HIV 1&2 Ab/P24 Ag 4thGn Rubella Antibody Exam Vital Signs (past 8 hours): - 03/25/22 02:00 03/25/22 03:00 03/25/22 02:10 Temperature 98.3 F 98.6 F Pulse Rate 94 H 95 H 95 H Respiratory Rate 20 24 Blood Pressure 152/84 H 155/86 H 152/84 H Pulse Oximetry 92 96 Oxygen Delivery Method Oxygen Flow Rate 0 0 03/25/22 04:00 03/25/22 04:42 03/25/22 04:00 Temperature 97.6 F Pulse Rate 89 93 H Respiratory Rate 19 Blood Pressure 166/94 H 166/94 H Pulse Oximetry 94 Oxygen Delivery Method Room Air Oxygen Flow Rate 0 03/25/22 05:00 03/25/22 05:00 03/25/22 06:17 Temperature 97.1 F L Pulse Rate 85 83 85 Respiratory Rate 19 Blood Pressure 143/85 H 143/85 H 158/89 H Pulse Oximetry 96 Oxygen Delivery Method Oxygen Flow Rate 0 03/25/22 06:00 03/25/22 07:00 03/25/22 06:55 Temperature 97.6 F 98.3 F Pulse Rate 85 89 88 Respiratory Rate 25 H 25 H 30 H Blood Pressure 158/89 H 164/90 H Pulse Oximetry 97 97 98 Oxygen Delivery Method Oxygen Flow Rate 0 0 03/25/22 07:00 03/25/22 07:00 03/25/22 07:00 Temperature Pulse Rate 90 90 Respiratory Rate 38 H Blood Pressure 158/87 H 158/87 H Pulse Oximetry 97 Oxygen Delivery Method Oxygen Flow Rate 03/25/22 07:30 03/25/22 08:00 03/25/22 08:01 Temperature Pulse Rate 91 H 92 H Respiratory Rate 37 H 24 Blood Pressure 172/98 H Pulse Oximetry 98 96 Oxygen Delivery Method Oxygen Flow Rate 03/25/22 08:01 03/25/22 08:00 Temperature Pulse Rate 91 H Respiratory Rate 21 Blood Pressure Pulse Oximetry 97 Oxygen Delivery Method Nasal Cannula Oxygen Flow Rate Oxygen Delivery Method Nasal Cannula Oxygen Flow Rate 0 Assessment & Plan Assessment & Plan narrative: patient seen with bedside nurse chart/labs/imaging reviewed events this am noted pt responded well to bipap/lasix 41 year old female with with pre-ecclampise s/p vaginal deliver day 2 currently afebrile, sbp 180s, HR 90s no long tachypneic of hypoxic on bipap labs significant for anemia to hgb of 8.0 bicarb 22 wbc 17 platelets 421 elevated LFTs cxr b/l infiltrates suggest -neurochecks/seizure precautions -off mag drip per OB, last level 6.1, all reflexes were intact -start labetolol 100mg q12, hold of sbp ess than 90, HR less than 60 -ctoninue bipap for now can wean off today -lasix 40mg ivp, 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 ativan prn, minimize use if possible -dc ivf ivf -check echo, EF 60%, elevated right side pressue, may need pulm/sleep astudy as outpt -abx, check final cxs -monitor ins/outs -keep glucose 14-180s -gi/dvt ppx -please call eICU as needed - Time Spent With Patient Critical Care time: I spent a total of [] minutes of critical care time on this patient's care today; this time is exclusive of procedural time.
[2022-03-25] MEDS: LABETALOL 100 MG TABLET PO ×2 (11:01→21:03)
[2022-03-25 11:19] LABS: Magnesium 5.7 mg/dL (1.6-2.3)
--- NOTE | 2022-03-25 11:28 | CM.DANOTE ---
Addendum entered by DAIANA Meredith 03/25/22 14:10: ADD: Per RN, pt now off bipap and currently on room air. SW attempted to meet bedside with pt and explained role and pt remained with eyes closed and appeared to be somewhat uncomfortable but denies current pain wrapper operator needs. Pt very brief in her answers and difficult to determine if pt feeling too poorly to participate or if pt avoidant/guarded. Pt was able to confirm she lives in [place] with roommates but denies that anyone she lives with could be supportive or reliable for assist at d/. SW inquired if pt's listed contact of her father Christian could be a support and pt states no, he's gone but did not expand any further. SW inquired if any other local supportive family or reliable friends and pt states no. SW asked about pt's cousin Britta [phone] who had called the at admission and pt declines SW contacting her but confirms that if cousin Britta calls for updates then [facility] staff can provide basic update information to Britta. SW inquired about pt's drug use and if pt is interested or wants support with NIESHA tx and pt declines providing more specific information and declines NIESHA tx at d/. Pt confirms that she currently does not have medical insurance and has not been established with PCP or OBGYN. Pt remained with eyes closed and mostly one word answers. SW to attempt again tomorrow when pt maybe more medically appropriate to participate in goal directed discussion. Per RN Maryellen, baby boy is stable but starting to show signs of possible withdrawal of low grade fever, high pitched cry, and irritable. staff have not heard from CPS. BRIELLE called CPS Tamara again today at 1400 after not hearing anything back and Tamara answered and apologized and confirmed that she has the referral assigned to her and has been reviewing and SW updated her on baby and MOB medical status. [facility] plans to complete bedside assessment/investigation of baby boy and MOB either this evening 03/25 or tomorrow AM 03/26/22 as they want to have the best chance of MOB engagement and MOB has been fairly sick and not very engaged in conversations. CPS requests baby remain on CPS while while they work to schedule an [facility] meeting for placement options at d/ but this meeting may not happen until Wednesday03/27/22 at the earliest and more likely next week. SW updated RN and also spoke to OBGYN with update who feels MOB likely not medically stable until the weekend pending her progress. Plan: SW to follow closely for CPS bedside investigation tonight or tomorrow Thurs AM to determine d/c planning for MOB and baby boy. BF Original Note: Patient is a 41 yo female who was admitted on 03/24/22 for Labor and delivery. Pt has SELF PAY for insurance and no listed PCP. EMR was reviewed. Per OBGYN, pt delivered baby boy yesterday 03/24/22 with seems to be lack of any care and pt's UDS positive for opiates, amphetamines, methamphetamines, THC and baby boy also tested positive for UDS. Pt admitted to ICU from center post delivery for severe eclampsia. ED SUPERVISORY EXAMINER assisted in CPS referral yesterday 03/24/22. See prior SUPERVISORY EXAMINER notes from yesterday and today regarding CPS. Per RN, pt still medically unstable and not ready for d/c. Pt has PICC for magnesium and RR has been unstable so RT just placed pt on bipap and this seems to be helping. May still be too early for any withdrawal symptoms but pt has been lethargic and not very engaged in answering questions or interacting much although after initially not being interested in seeing her baby, pt was agreeable to baby visiting bedside from center RN this morning briefly. RN requests SW to hold on bedside assessment as pt's bipap recently placed and pt has been somewhat anxious. Plan: SW to follow for bedside assessment for d/c planning attempt later today towards determining pt's home situation and any further discharge planning needs. SW to follow for CPS recommendations. DAIANA Meredith Discharge Planning/Care Management CM Discharge Assessment Start: 03/25/22 11:25 Freq: Status: Active Protocol: Document 03/25/22 11:25 BF (Rec: 03/25/22 11:28 BF [id number]) Discharge Planning Assessment Assigned Telephonic Rn DAIANA Torres Advance Directives? No Advance Directives on File No History Provided By Patient,Medical Record Has Patient been admitted in last 30 No days? Household Members other Independent with ADL's Yes Is patient alert and oriented? Yes Caregiver for Another No: just delivered baby boy Community Services used prior to Social Work admission: Comment CPS referral made intake# [id number] due to lack care and positive UDS Barriers to Discharge Yes Comment currently may be private pay without insurance but AD counselors will follow up Discharge Plan Home Community Services Social Work Transportation Arrangement to be determined Referrals Initiated Other Additional Comment CPS referral made Review Status In Process Please Provide Date Initial DC 03/25/22 Assessment Was Performed Next Review Type Continued Stay Review
[2022-03-25 14:10] LABS: Blood Urea Nitrogen 12 mg/dL (7-17); Calcium 6.9 mg/dL (8.4-10.2); Carbon Dioxide 24 mmol/L (22-32); Chloride 100 mmol/L (98-107); Estimated Glomerular Filt Rate > 60 mL/min (>60); Glucose 136 mg/dL (70-100); HEMOLYSIS < 15 (0-50); Potassium 4.2 mmol/L (3.4-5.1); Sodium 129 mmol/L (137-145)
[2022-03-25] MEDS: IBUPROFEN 600 MG TABLET PO ×2 (15:33→21:04)
--- NOTE | 2022-03-25 17:38 | PM.PN.1 ---
Subjective Subjective Date Patient Seen: 03/25/22 Time Patient Seen: 13:00 Interval history: Patient is a 41-year-old day # 2 status post spontaneous vaginal delivery. In the ICU due to severe preeclampsia. Patient diuresed overnight and throughout the morning. She received IV Lasix. Hydralazine p.o. was added to her IV labetalol for blood pressure control. Oral labetalol added early this afternoon. Patient is still fairly non communicative. Has seen the baby once. Does not want visitors or phone calls. Patient placed on BiPAP. Liver function tests trending downward. Hematocrit stable. Her vaginal bleeding is mild lochia. On 2 g magnesium sulfate maintenance Exam Vital Signs (past 8 hours): - 03/25/22 09:46 03/25/22 10:02 03/25/22 10:00 Pulse Rate 90 83 Respiratory Rate Blood Pressure 180/103 H 149/85 H 149/85 H Pulse Oximetry Oxygen Delivery Method 03/25/22 10:00 03/25/22 11:01 03/25/22 10:30 Pulse Rate 83 87 84 Respiratory Rate 23 22 Blood Pressure 172/100 H Pulse Oximetry 99 100 Oxygen Delivery Method 03/25/22 11:00 03/25/22 11:00 03/25/22 11:30 Pulse Rate 88 88 Respiratory Rate 21 22 Blood Pressure 172/100 H Pulse Oximetry 100 100 Oxygen Delivery Method 03/25/22 12:00 03/25/22 12:00 03/25/22 11:31 Pulse Rate 100 H 100 H Respiratory Rate 30 H Blood Pressure 167/92 H 167/92 H Pulse Oximetry 96 Oxygen Delivery Method 03/25/22 11:00 03/25/22 12:30 03/25/22 13:00 Pulse Rate 92 H Respiratory Rate 29 H Blood Pressure 156/86 H Pulse Oximetry 96 96 Oxygen Delivery Method Room Air 03/25/22 13:00 03/25/22 12:00 03/25/22 13:30 Pulse Rate 93 H 94 H Respiratory Rate 26 H 24 Blood Pressure Pulse Oximetry 95 96 Oxygen Delivery Method Room Air 03/25/22 14:00 03/25/22 14:00 03/25/22 14:45 Pulse Rate 94 H 92 H Respiratory Rate 25 H Blood Pressure 152/83 H 152/83 H Pulse Oximetry 96 Oxygen Delivery Method 03/25/22 14:30 03/25/22 15:00 03/25/22 15:00 Pulse Rate 96 H 98 H Respiratory Rate 25 H 28 H Blood Pressure 157/89 H Pulse Oximetry 96 97 Oxygen Delivery Method 03/25/22 15:15 03/25/22 15:30 03/25/22 16:00 Pulse Rate 96 H 106 H Respiratory Rate 30 H Blood Pressure 157/89 H 153/79 H Pulse Oximetry 96 Oxygen Delivery Method 03/25/22 16:00 03/25/22 16:00 03/25/22 16:30 Pulse Rate 100 H 105 H Respiratory Rate 25 H 28 H Blood Pressure Pulse Oximetry 96 97 Oxygen Delivery Method Room Air 03/25/22 17:00 03/25/22 17:00 Pulse Rate 107 H Respiratory Rate 24 Blood Pressure 145/71 H Pulse Oximetry 94 Oxygen Delivery Method Fraction of Inspired Oxygen 28 Oxygen Delivery Method Room Air Oxygen Flow Rate 0 Narrative Exam Narrative: Generally: Patient reclined in bed, sleeping, no acute distress Lungs: Decreased breath sounds at the bases. No wheezing. Cardiovascular: Regular rate and rhythm Fundus: Firm at U -1 Extremities: 2+ pitting edema to the thighs, no clonus, 1+ DTRs Objective Labs Result Diagrams: 03/25/22 04:30 03/25/22 13:20 Labs: Laboratory Results - last 24 hr 03/24/22 03/24/22 03/24/22 10:04 10:15 22:45 WBC RBC Hgb Hct MCV MCH MCHC RDW Plt Count Neut % (Auto) Lymph % (Auto) [place] % (Auto) Eos % (Auto) Baso % (Auto) Neut # (Auto) Lymph # (Auto) [place] # (Auto) Eos # (Auto) Baso # (Auto) ABG pH ABG pCO2 ABG pO2 ABG HCO3 ABG Total CO2 ABG O2 Saturation ABG Base Excess FiO2 Sodium Potassium Chloride Carbon Dioxide BUN Creatinine Estimated GFR BUN/Creatinine Ratio Glucose Calcium Magnesium 5.5 H* Total Bilirubin AST ALT Alkaline Phosphatase Total Protein Albumin Globulin Albumin/Globulin Ratio Nasal Screen MRSA (PCR) Negative for mrsa Serum VDRL Non reactive Hepatitis A IgM Ab Negative Hep Bs Antigen Negative Hep B Core IgM Ab Negative Hepatitis C Antibody <0.1 Hep C Ab Signal/Cutoff Comment 03/25/22 03/25/22 03/25/22 04:30 04:30 04:30 WBC 17.2 H RBC 2.99 L Hgb 7.3 L Hct 22.5 L MCV 75.2 L MCH 24.3 L MCHC 32.3 RDW 17.8 H Plt Count 401 H Neut % (Auto) 84.3 H Lymph % (Auto) 7.9 L [place] % (Auto) 7.0 Eos % (Auto) 0.4 L Baso % (Auto) 0.4 Neut # (Auto) 74738 H Lymph # (Auto) 1400 [place] # (Auto) 1200 H Eos # (Auto) 100 Baso # (Auto) 100 ABG pH ABG pCO2 ABG pO2 ABG HCO3 ABG Total CO2 ABG O2 Saturation ABG Base Excess FiO2 Sodium 130 L Potassium 4.6 Chloride 104 Carbon Dioxide 22 BUN 7 Creatinine 0.92 Estimated GFR > 60 BUN/Creatinine Ratio 7.6 Glucose 121 H Calcium 6.7 L Magnesium 6.2 H* Total Bilirubin 0.7 AST 78 H ALT 88 H Alkaline Phosphatase 160 H Total Protein 5.4 L Albumin 2.4 L Globulin 3.0 Albumin/Globulin Ratio 0.8 L Nasal Screen MRSA (PCR) Serum VDRL Hepatitis A IgM Ab Hep Bs Antigen Hep B Core IgM Ab Hepatitis C Antibody Hep C Ab Signal/Cutoff 03/25/22 03/25/22 03/25/22 07:50 10:00 13:20 WBC RBC Hgb Hct MCV MCH MCHC RDW Plt Count Neut % (Auto) Lymph % (Auto) [place] % (Auto) Eos % (Auto) Baso % (Auto) Neut # (Auto) Lymph # (Auto) [place] # (Auto) Eos # (Auto) Baso # (Auto) ABG pH 7.45 ABG pCO2 28.5 L ABG pO2 70 L ABG HCO3 20 L ABG Total CO2 21 ABG O2 Saturation 95 ABG Base Excess -4.0 L FiO2 21 Sodium 129 L Potassium 4.2 Chloride 100 Carbon Dioxide 24 BUN 12 Creatinine 0.92 Estimated GFR > 60 BUN/Creatinine Ratio 13.0 Glucose 136 H Calcium 6.9 L Magnesium 5.7 H* Total Bilirubin AST ALT Alkaline Phosphatase Total Protein Albumin Globulin Albumin/Globulin Ratio Nasal Screen MRSA (PCR) Serum VDRL Hepatitis A IgM Ab Hep Bs Antigen Hep B Core IgM Ab Hepatitis C Antibody Hep C Ab Signal/Cutoff [facility] Medical History COVID-19 Dental abscess Social History (System 03/24/22 @ 08:23 by Mary Vera) household members: other Smoking Status: Never smoker substance use type: marijuana, tranquilizers and methamphetamine Assessment & Plan Assessment & Plan narrative: Assessment: 41-year-old 5 para 5 day # 2 status post spontaneous vaginal delivery Severe preeclampsia Magnesium sulfate discontinued this morning Liver function tests decreasing Hematocrit stable Plan: Continue blood pressure management Continue diuresis Social work and care Management involved Time Spent With Patient Time with patient: less than 30 minutes Critical Care time: I spent a total of [] minutes of critical care time on this patient's care today; this time is exclusive of procedural time.
--- NOTE | 2022-03-25 20:19 | PM.ICURNDS ---
- :: This patient was seen via real time interactive two-way audiovisual telecommunication. Note: ICU multidisciplinary round completed. BP better controlled. On room air with SpO2 ~94%. Will continue labetalol 100 mg and hydralazine 10 mg TID w/ holding parameters. D/w RN at bedside.
[2022-03-25] MEDS: SODIUM CHLORIDE 0.9% FLUSH 10 ML IV (21:05)
[2022-03-26] VITALS (28 sets, daily range): BP systolic 148–183; BP diastolic 72–96; PULSE 86–116; RESP 19–32; TEMP 36.8–38.3; O2SAT 93–99
[2022-03-26] MEDS: LORazepam 2 MG/ML INJ 0.5 MG IV ×4 (01:04→12:50)
[2022-03-26] MEDS: HYDRALAZINE 10 MG TABLET PO ×3 (05:24→22:14)
[2022-03-26] MEDS: SODIUM CHLORIDE 0.9% FLUSH 10 ML IV ×3 (05:25→20:19)
--- NOTE | 2022-03-26 05:45 | PC.NURSE ---
Shift Note-Patient has been drowsy, dozes intermittently, oriented x3, will occasionally wake up with increased anxiety, says it is related to withdrawl. Giving 0.5mg IV Ativan per prn order, called Dr Mendez Delinquency Counselor at 0455 for an extra 1x dose Ativan. BP 150s-180/80s-90s, scheduled labetalol and hydralazine given. SR/ST, RR 20s-30s, SpO2 >92% on RA, does occasionally have brief 2-3 second apnea. Fundus firm at umbilicus, small lochea. Tylenol and Ibuprofen given for generalized pain.
[2022-03-26] MEDS: LABETALOL 20 MG/4 ML SYRINGE 10 MG IV ×3 (06:32→16:47)
[2022-03-26] MEDS: PRENATAL VIT,CALC/IRON/FOLIC 1 TABLET 1 TAB PO (08:25)
[2022-03-26] MEDS: DOCUSATE 100 MG CAPSULE PO (08:25)
[2022-03-26] MEDS: LABETALOL 100 MG TABLET PO (08:25)
[2022-03-26 10:22] LABS: BUN Creatinine Ratio 17.4 (6-22); Blood Urea Nitrogen 16 mg/dL (7-17); Carbon Dioxide 25 mmol/L (22-32); Chloride 105 mmol/L (98-107); Estimated Glomerular Filt Rate > 60 mL/min (>60); Glucose 134 mg/dL (70-100); HEMOLYSIS < 15 (0-50); Potassium 4.4 mmol/L (3.4-5.1); Sodium 134 mmol/L (137-145)
[2022-03-26] MEDS: ACETAMINOPHEN 325 MG TABLET 650 MG PO (12:26)
--- NOTE | 2022-03-26 13:31 | PC.NURSE ---
1240 - Pt awake with increased anxiety. Tachypneic, calling out for help. Calling out I can't breath Anxious, restless, reports feeling anxious r/t withdrawal. 0.5 mg Ativan given. 1315 - Resting quietly
--- NOTE | 2022-03-26 14:33 | PC.NURSE ---
1430 - Pt resting, continues to be tachypneic, RR 28, anterior expiratory wheezing, no adventitious sounds appreciated posterior, sats 94%, denies feeling SOB.
[2022-03-26] MEDS: FUROSEMIDE 20 MG/2 ML VIAL IV (17:59)
--- NOTE | 2022-03-26 18:42 | PM.PN.1 ---
Subjective Subjective Date Patient Seen: 03/26/22 Time Patient Seen: 13:30 Interval history: day # 3 status post spontaneous vaginal delivery with severe preeclampsia Magnesium sulfate off. Patient continues to diurese. She has received intermittent diuretics. [facility] planning interview on Wednesday. Exam Vital Signs (past 8 hours): - 03/26/22 12:22 03/26/22 12:26 03/26/22 11:17 Temperature 100.9 F H 100.9 F H Pulse Rate 100 H Respiratory Rate Blood Pressure 177/95 H Pulse Oximetry Oxygen Delivery Method Oxygen Flow Rate 03/26/22 14:28 03/26/22 11:30 03/26/22 16:40 Temperature 98.2 F Pulse Rate 116 H 106 H Respiratory Rate 32 H Blood Pressure 171/81 H 169/92 H Pulse Oximetry 95 97 Oxygen Delivery Method Room Air Oxygen Flow Rate 0 03/26/22 16:47 Temperature Pulse Rate 106 H Respiratory Rate Blood Pressure 169/92 H Pulse Oximetry Oxygen Delivery Method Oxygen Flow Rate Fraction of Inspired Oxygen 28 Oxygen Delivery Method Room Air Oxygen Flow Rate 0 Narrative Exam Narrative: Generally: Patient is sitting up in bed, no acute distress Lungs: Decreased breath sounds at the bases Cardiovascular: Tachycardic. Regular rate and rhythm Fundus: Firm at U -2 Extremities: 1+ edema above the knees, 1+ DTRs, no clonus Objective Labs Result Diagrams: 03/25/22 04:30 03/26/22 10:00 Labs: Laboratory Results - last 24 hr 03/26/22 10:00 Sodium 134 L Potassium 4.4 Chloride 105 Carbon Dioxide 25 BUN 16 Creatinine 0.92 Estimated GFR > 60 BUN/Creatinine Ratio 17.4 Glucose 134 H Calcium 7.0 L PFSH Medical History COVID-19 Dental abscess Social History (System 03/24/22 @ 08:23 by Mary Vera) household members: other Smoking Status: Never smoker substance use type: marijuana, tranquilizers and methamphetamine Assessment & Plan Assessment & Plan narrative: Assessment: day # 3 status post spontaneous vaginal delivery Severe preeclampsia off of magnesium sulfate Still with elevated blood pressures Plan: Lasix 20 mg IV Labetalol 200 mg twice a day oral beginning tonight CMP in the morning Time Spent With Patient Time with patient: less than 30 minutes Critical Care time: I spent a total of [] minutes of critical care time on this patient's care today; this time is exclusive of procedural time.
[2022-03-26] MEDS: LABETALOL 100 MG TABLET 200 MG PO (20:19)
[2022-03-26] MEDS: ALPRAZolam 0.5 MG TABLET PO (20:19)
[2022-03-27] VITALS (21 sets, daily range): BP systolic 149–178; BP diastolic 79–89; PULSE 95–111; RESP 16–24; TEMP 36.7–37.9; O2SAT 96–97
[2022-03-27] MEDS: SODIUM CHLORIDE 0.9% FLUSH 10 ML IV ×3 (05:09→20:13)
[2022-03-27] MEDS: HYDRALAZINE 10 MG TABLET PO ×3 (05:21→22:05)
--- NOTE | 2022-03-27 05:29 | PC.NURSE ---
Dr. Rosenberg called via answering service to report Pt.s [facility] was positive for E-coli & temp. this morning 99.2. Awaiting call back.
[2022-03-27 06:21] LABS: Carbon Dioxide 24 mmol/L (22-32); Chloride 103 mmol/L (98-107); Potassium 4.2 mmol/L (3.4-5.1); Sodium 133 mmol/L (137-145)
[2022-03-27 06:22] LABS: Alanine Aminotransferase 44 IU/L (<35); Alkaline Phosphatase 107 U/L (38-126); Aspartate Aminotransferase 35 IU/L (14-36); BUN Creatinine Ratio 18.4 (6-22); Bilirubin Total 0.5 mg/dL (0.2-1.3); Blood Urea Nitrogen 16 mg/dL (7-17); Calcium 6.8 mg/dL (8.4-10.2); Estimated Glomerular Filt Rate > 60 mL/min (>60); Glucose 125 mg/dL (70-100); Total Protein 5.3 g/dL (6.3-8.2)
[2022-03-27 06:23] LABS: Albumin 2.5 g/dL (3.5-5.0); Albumin Globulin Ratio 0.9 (1.0-2.8); Globulin 2.8 g/dL (1.7-4.1); HEMOLYSIS < 15 (0-50)
[2022-03-27] MEDS: PRENATAL VIT,CALC/IRON/FOLIC 1 TABLET 1 TAB PO (08:32)
[2022-03-27] MEDS: LABETALOL 100 MG TABLET 200 MG PO ×2 (08:32→20:13)
[2022-03-27] MEDS: DOCUSATE 100 MG CAPSULE PO (08:33)
[2022-03-27] MEDS: ALPRAZolam 0.5 MG TABLET PO ×2 (08:33→23:35)
[2022-03-27] MEDS: ACETAMINOPHEN 325 MG TABLET 650 MG PO (08:34)
[2022-03-27] MEDS: CEFAZOLIN 2 GM/20 ML SYRINGE IV ×2 (10:39→18:14)
[2022-03-27] MEDS: FUROSEMIDE 20 MG/2 ML VIAL IV (12:51)
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
[2022-03-27] MEDS: LORazepam 2 MG/ML INJ 0.5 MG IV (15:44)
[2022-03-28] VITALS (25 sets, daily range): BP systolic 132–183; BP diastolic 72–101; PULSE 76–120; RESP 17–33; TEMP 36.3–36.9; O2SAT 93–99
[2022-03-28] MEDS: CEFAZOLIN 2 GM/20 ML SYRINGE IV ×3 (02:43→18:48)
[2022-03-28] MEDS: SODIUM CHLORIDE 0.9% FLUSH 10 ML IV ×4 (02:43→21:22)
[2022-03-28] MEDS: HYDRALAZINE 10 MG TABLET PO ×3 (05:30→21:28)
[2022-03-28] MEDS: LORazepam 2 MG/ML INJ 0.5 MG IV ×4 (05:37→17:38)
--- NOTE | 2022-03-28 06:20 | PC.NURSE ---
4299 Pt. C/O anxiety & panic attack , she C/O that she can't breath & hyperventilating. Checked her saturation in room air was 97%, requesting her Lorazepam. 0.5 mg. Ativan IVP administered. Re-assessed & she reported I felt much better, was asleep but roused easily. Will cont. POC & monitor.
[2022-03-28] MEDS: DOCUSATE 100 MG CAPSULE PO (09:08)
[2022-03-28] MEDS: ALPRAZolam 0.5 MG TABLET PO ×2 (09:08→21:20)
[2022-03-28] MEDS: LABETALOL 100 MG TABLET 200 MG PO ×2 (09:13→21:21)
[2022-03-28] MEDS: PRENATAL VIT,CALC/IRON/FOLIC 1 TABLET 1 TAB PO (09:13)
[2022-03-28 11:41] LABS: BUN Creatinine Ratio 16.9 (6-22); Blood Urea Nitrogen 13 mg/dL (7-17); Calcium 7.4 mg/dL (8.4-10.2); Carbon Dioxide 27 mmol/L (22-32); Chloride 105 mmol/L (98-107); Estimated Glomerular Filt Rate > 60 mL/min (>60); Glucose 114 mg/dL (70-100); HEMOLYSIS < 15 (0-50); Potassium 4.5 mmol/L (3.4-5.1); Sodium 136 mmol/L (137-145)
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
--- NOTE | 2022-03-28 17:46 | PC.NURSE ---
Addendum entered by Olinda Hickman R.N. 03/28/22 19:37: pt said she was able to have good sleep earlier in the afternoon after ativan. now ativan does not seem to work, O2 96% but RR still 27 after giving ativan.pt states her edema to her hands and legs has gone down. notified Dr. Underwood regarding patient's status, pt also been drinking plenty of fluid over 1000cc today. VTO chest xray. xray came back and said she is fluid overload, notified provider, vto 20mg lasix and consult to hospitalist. Original Note: pt wakes up and becomes anxious, tachypneic, gave ativan. needs reminder to take slow deep breaths. pt reports her breathing is not any worse than yesterday.
--- NOTE | 2022-03-28 18:22 | DI.RAD.S_ITS ---
PROCEDURE: XR CHEST 2V INDICATIONS: tachypneic TECHNIQUE: 2 views of the chest were acquired. COMPARISON: [facility], CR, XR CHEST 1V, 03/25/2022, 7:38. [facility], CR, XR CHEST FOR PICC 1V, 03/24/2022, 11:48. FINDINGS: Surgical changes and devices: Left-sided PICC with the catheter tip projecting at the middle 3rd of the SVC. Lungs and pleura: Right upper lobe airspace opacity. No pleural effusions or pneumothorax. Mediastinum: Mediastinal contours are unchanged. Heart size is normal. Bones and chest wall: No suspicious bony abnormalities. Soft tissues appear unremarkable. IMPRESSION: Left-sided PICC with the catheter tip projecting at the middle 3rd of the SVC. Right upper lobe pneumonia. Dictated by: Hardeep Ford M.D. on 03/28/2022 at 19:45 Approved by: Hardeep Ford M.D. on 03/28/2022 at 19:46
[2022-03-28] MEDS: FUROSEMIDE 20 MG/2 ML VIAL IV (19:28)
--- NOTE | 2022-03-28 19:52 | P.CONS_ITS ---
History of Present Illness Consult details Date Patient Seen: 03/28/22 Time Patient Seen: 19:52 Chief complaint: labor Reason for consult: Abnormal CXR Requesting provider: Belia Underwood Narrative: This is a 41 year old female with chronic benzodiazepine use, opioid use, methamphetamine use and anxiety who presented in labor with preeclampsia on 03/24. She had a normal vaginal delivery, was treated with magnesium, labetalol and hydralazine. Post delivery she was cared for in the intensive care unit by Dr. Underwood and the tele rubber production machine operator. She was transferred out of the intensive care unit to the [facility] yesterday and then became acutely more short of breath this evening. Chest x-ray showed bilateral pulmonary edema and a right- sided upper lobe rounded infiltrate. She was started on cefazolin IV for a pansensitive E coli urinary tract infection yesterday. Her hemoglobin on presentation was 8.5, dropping to 7.3 on 03/26 and down to 5.8 on her ABG draw this evening. She is tachypneic with a respiratory rate of 36 and on her ABG appears to be in respiratory alkalosis from her rapid breathing. The pH is 7.509 with pCO2 of 31, a PO2 of 84 and a bicarb of 24.7. She is 96% on room air. It is not clear to me if she had been on oxygen at any point in the ICU. Her white blood count on presentation was 15.8, rising to 22.7 and most recently 17.2 on 03/26. The D-dimer today is 570. The most recent blood pressure remains high 177/97 with a heart rate of 96. She lives in a house here in [facility] with friends. Her 4 children live with her father and her baby is in the nursery in [place] for opioid withdrawal. She says she has no relatives or friends to contact but when pressed on who would be her decision maker or at least a contact lens assistant if she were intubated she says it would be Ruth Ann Farooq. She is pending a blood transfusion, a CT angio to rule out pulmonary embolus and will be started on ceftriaxone. With the initial Lasix IV she begins diuresing again at a rapid rate. The catheter bag and Blanco line are seen to be filling up in ?real time. ? Meds Home Medications and Allergies Home Medications Medication Instructions Recorded Confirmed Type alprazolam 0.5 mg tablet (Xanax) 0.5 mg PO BID 03/26/22 03/26/22 History hydralazine 10 mg tablet 10 mg PO TID #30 tabs 03/28/22 Rx labetalol 200 mg tablet 200 mg PO TID #90 tabs 03/28/22 Rx Allergies Allergy/AdvReac Type Severity Reaction Status Date / Time Penicillins [PENICILLINS] Allergy Unknown Verified 03/24/22 08:23 Review of Systems Review of Systems Narrative: Positive for respiratory distress, mild post delivery vaginal bleeding and generalized edema Negative for fevers, chills, sweats, coughing, chest pain, abdominal pain, nausea, vomiting, diarrhea, dysuria, hematuria, seizures, rash, new allergies. Exam Vital Signs (past 8 hours): - 03/28/22 12:00 03/28/22 14:06 03/28/22 15:49 Temperature 97.4 F L 98.5 F Pulse Rate 93 H 91 H 94 H Respiratory Rate 20 18 Blood Pressure 152/88 H 166/92 H 170/96 H Pulse Oximetry 95 96 Oxygen Flow Rate 0 0 03/28/22 16:50 Temperature Pulse Rate 94 H Respiratory Rate Blood Pressure 149/79 H Pulse Oximetry 98 Oxygen Flow Rate 0 Fraction of Inspired Oxygen 28 Oxygen Delivery Method Room Air Oxygen Flow Rate 0 Narrative Exam Narrative: Alert, oriented x3, severe respiratory distress, no other outward signs of anxiety. Breathing 36 per minute sitting bolt upright and unable to lie flat. Pupils are equally round reactive to light and accommodation Sclerae are pale and nonicteric Extraocular muscles are intact Throat looks normal No lymph nodes are felt head, neck, supraclavicular area JVD is less than 6 cm No carotid bruits heard No thyromegaly is present Heart is regular rate and rhythm at a rate of 96 without murmur. Clear to auscultation bilaterally Shallow breathing Abdomen is soft, obese, nontender, uterus is contracted and not excessively tender Extremities have 1+ ankle pitting edema bilaterally. She is generally puffy on her hands and on her face. Skin is very pale, with many nevi, without rash Neurological exam: Deep tendon reflexes are symmetric and hypoactive Cranial nerves 2-12 test intact Motor function is 4/5 throughout There is no tremor Objective Labs Result Diagrams: 03/28/22 20:18 03/28/22 20:18 Labs: Laboratory Results - last 24 hr 03/28/22 11:20 Sodium 136 L Potassium 4.5 Chloride 105 Carbon Dioxide 27 BUN 13 Creatinine 0.77 Estimated GFR > 60 BUN/Creatinine Ratio 16.9 Glucose 114 H Calcium 7.4 L [facility] Medical History (Updated 03/28/22 @ 19:54 by Margo Davidson MD) COVID-19 Dental abscess Methamphetamine abuse Opiate abuse, episodic Pre-eclampsia Comment: Patient is in respiratory distress and unable to discuss her surgical history or family history at this time. Social History household members: other Tobacco & Substance Use Smoking Status: Never smoker substance use type: marijuana, tranquilizers and methamphetamine Assessment & Plan Assessment & Plan narrative: This is a 41 year old female with chronic benzodiazepine use, opioid use, methamphetamine use and anxiety who presented in labor with preeclampsia on 03/24. She had a normal vaginal delivery, was treated with magnesium, labetalol and hydralazine. Post delivery she was cared for in the intensive care unit by Dr. Underwood and the tele rubber production machine operator. She was transferred out of the intensive care unit to the [facility] yesterday and then became acutely more short of breath this evening. Chest x-ray showed bilateral pulmonary edema and a right- sided upper lobe rounded infiltrate. Acute respiratory failure, not present on admission. Active. -multifactorial, pulmonary edema related to preeclampsia and evident pneumonia -rule out acute pulmonary embolus with CT angio chest. -dramatic improvement with IV Lasix, going from sitting bolt upright respiratory rate of 36 back down to her baseline rate below 20 and leaning back in the bed. Pulmonary edema, not present on admission. Active. -rapid improvement in symptoms with IV Lasix, visible real-time accumulation of clear urine in Blanco catheter. Right upper lobe pneumonia, not present on admission. Active. -begin ceftriaxone and stop cefazolin -repeat white blood count and CTA of the chest is pending Preeclampsia, present on admission. Active. -completed 24 hours post delivery magnesium drip -continues on hydralazine and labetalol orally with blood pressure's not well controlled Post delivery blood loss anemia, present on admission. Active. -hemoglobin on arrival was 8.5 and is now 5.8. -after discussion with Dr. Underwood will transfuse 2 units packed red blood cells mainly due to the acute respiratory distress Polysubstance abuse, present on admission. Active. -patient admits to benzodiazepine use but denies opioids. -urine drug screen on admission positive for THC, methamphetamine and opioids Holding Lovenox due to post delivery vaginal bleeding, CTA chest pending Patient improves contact lens assistant of Ruth Ann Farooq but will not appoint a backup decision maker. Time Spent With Patient Critical Care time: I spent a total of [] minutes of critical care time on this patient's care today; this time is exclusive of procedural time.
--- NOTE | 2022-03-28 20:05 | PC.NURSE ---
Hospitalist consult. Dr. Lundberg qat the bedside along with RT. Unable to hear any air moving while listening to lungs. [id number]. ABg's done. pt voided 800 ml and brief was saturated. plan is for patient to go to ICU.
[2022-03-28] MEDS: FUROSEMIDE 100 MG/10 ML VIAL 80 MG IV (20:19)
--- NOTE | 2022-03-28 20:44 | DI.CT.S_ITS ---
PROCEDURE: CT ANGIO CHEST PE PROTOCOL INDICATIONS: Respiratory distress and elevated D dimer TECHNIQUE: After the administration of intravenous contrast, 2 mm thick sections acquired from the pulmonary apices to the posterior costophrenic angles. 3-dimensional maximum intensity projection (MIP) coronal and sagittal reformats were then acquired through the thorax. For radiation dose reduction, the following was used: automated exposure control, adjustment of mA and/or kV according to patient size. COMPARISON: [facility], CR, XR CHEST 2V, 03/28/2022, 18:54. FINDINGS: Image quality: Excellent. Pulmonary arteries: Pulmonary arteries are normal in size, and demonstrate no intraluminal filling defects to suggest central pulmonary embolism. Lungs and pleura: Lungs are abnormal with bilateral mid and upper lung pneumonia, and with crowding of the bronchovascular markings associated with moderate bilateral pleural effusions that are slightly greater on the right than the left.. No pleural effusions or pneumothorax. Central and peripheral airways are patent. Mediastinum: Heart size is normal, without pericardial effusion. No mediastinal or hilar adenopathy. Thoracic aorta is normal in caliber and enhancement. Esophagus is normal in caliber, without hiatal hernia. Bones and chest wall: No suspicious bony lesions. Ribs and thoracic spine appear intact throughout. Thyroid gland appears normal where well seen. No axillary or supraclavicular adenopathy. Abdomen: Visualized upper abdominal solid organs appear normal in the early arterial phase of enhancement. IMPRESSION: Bilateral pneumonia with moderate bilateral right greater than left pleural effusions. No pulmonary embolus found. Dictated by: Jorge Thompson M.D. on 03/28/2022 at 23:10 Approved by: Jorge Thompson M.D. on 03/28/2022 at 23:12
[2022-03-28 20:45] LABS: Add Manual Diff / Slide Review NO; Basophils Absolute Auto 0 /uL (0-100); Basophils Percent Auto 0.4 % (0-2); Eosinophils Absolute Auto 400 /uL (0-450); Eosinophils Percent Auto 4.3 % (2-4); Lymphocytes Absolute Auto 1000 /uL (1100-4500); Lymphocytes Percent Auto 11.8 % (25-40); Mean Corpuscular HGB Conc 32.3 % (30-36); Mean Corpuscular Hemoglobin 24.4 PG (26-34); Mean Corpuscular Volume 75.5 fL (80-100); Monocytes Absolute Auto 800 /uL (0-900); Monocytes Percent Auto 9.6 % (3-14); Neutrophils Absolute Auto 6300 /uL (1500-7000); Neutrophils Percent Auto 73.9 % (50-75); Platelet Count 346 X10^3/uL (150-400); Red Blood Cell Count 2.56 X10^6/uL (4.0-5.2); Red Cell Distribution Width 18.1 % (11.6-14.8); White Blood Cell Count 8.6 X10^3/uL (4.5-11.0)
[2022-03-28 21:04] LABS: Fractionated Inspired Oxygen 21; HCO3 ABG 25 mmol/L (22-26); Oxygen Saturation ABG 97 % (95-100); PCO2 ABG 31.1 mmHg (35-45); PO2 ABG 84 mmHg (80-100); TCO2 ABG 26 mmol/L (21-31); pH ABG 7.51 (7.35-7.45)
[2022-03-28 21:17] LABS: Alanine Aminotransferase 47 IU/L (<35); Albumin 2.9 g/dL (3.5-5.0); Albumin Globulin Ratio 0.9 (1.0-2.8); Alkaline Phosphatase 117 U/L (38-126); Aspartate Aminotransferase 49 IU/L (14-36); BUN Creatinine Ratio 17.6 (6-22); Bilirubin Total 0.4 mg/dL (0.2-1.3); Blood Urea Nitrogen 13 mg/dL (7-17); Calcium 7.7 mg/dL (8.4-10.2); Carbon Dioxide 29 mmol/L (22-32); Chloride 102 mmol/L (98-107); Estimated Glomerular Filt Rate > 60 mL/min (>60); Globulin 3.1 g/dL (1.7-4.1); Glucose 106 mg/dL (70-100); HEMOLYSIS < 15 (0-50); Hemoglobin 6.2 g/dL (12.0-16.0); Potassium 4.5 mmol/L (3.4-5.1); Sodium 135 mmol/L (137-145)
[2022-03-28 21:18] LABS: Hematocrit 19.4 % (36-46)
[2022-03-28] MEDS: cefTRIAXone 1,000 MG in SODIUM CHLORIDE 0.9% 100 ML 200 MG IV (21:20)
[2022-03-28] MEDS: IBUPROFEN 600 MG TABLET PO (21:21)
[2022-03-28 21:26] LABS: NT-proBNP (BNP-Adult 18+) 1880 pg/mL (<125)
[2022-03-28 21:33] LABS: D Dimer 3840 ng/mL (<230)
[2022-03-29] VITALS (23 sets, daily range): BP systolic 136–186; BP diastolic 57–99; PULSE 76–95; RESP 16–26; TEMP 36.4–37.2; O2SAT 93–98
[2022-03-29] MEDS: CEFAZOLIN 2 GM/20 ML SYRINGE IV (02:47)
[2022-03-29] MEDS: LORazepam 2 MG/ML INJ 0.5 MG IV ×2 (04:35→13:08)
[2022-03-29] MEDS: HYDRALAZINE 10 MG TABLET PO (05:51)
[2022-03-29] MEDS: LABETALOL 20 MG/4 ML SYRINGE 10 MG IV (05:53)
[2022-03-29 06:23] LABS: Add Manual Diff / Slide Review NO; Basophils Absolute Auto 0 /uL (0-100); Basophils Percent Auto 0.4 % (0-2); Eosinophils Absolute Auto 300 /uL (0-450); Hemoglobin 7.4 g/dL (12.0-16.0); Lymphocytes Absolute Auto 800 /uL (1100-4500); Lymphocytes Percent Auto 10.8 % (25-40); Mean Corpuscular HGB Conc 33.3 % (30-36); Mean Corpuscular Hemoglobin 25.9 PG (26-34); Mean Corpuscular Volume 77.6 fL (80-100); Monocytes Absolute Auto 700 /uL (0-900); Monocytes Percent Auto 9.6 % (3-14); Neutrophils Absolute Auto 5800 /uL (1500-7000); Neutrophils Percent Auto 75.2 % (50-75); Platelet Count 344 X10^3/uL (150-400); Red Blood Cell Count 2.86 X10^6/uL (4.0-5.2); Red Cell Distribution Width 17.4 % (11.6-14.8); White Blood Cell Count 7.8 X10^3/uL (4.5-11.0)
[2022-03-29 06:25] LABS: Hematocrit 22.2 % (36-46)
[2022-03-29 06:38] LABS: Alanine Aminotransferase 48 IU/L (<35); Albumin 2.9 g/dL (3.5-5.0); Alkaline Phosphatase 105 U/L (38-126); Aspartate Aminotransferase 54 IU/L (14-36); BUN Creatinine Ratio 18.3 (6-22); Bilirubin Total 0.6 mg/dL (0.2-1.3); Blood Urea Nitrogen 15 mg/dL (7-17); Calcium 7.2 mg/dL (8.4-10.2); Carbon Dioxide 29 mmol/L (22-32); Chloride 102 mmol/L (98-107); Estimated Glomerular Filt Rate > 60 mL/min (>60); Glucose 96 mg/dL (70-100); HEMOLYSIS < 15 (0-50); Potassium 4.3 mmol/L (3.4-5.1); Sodium 135 mmol/L (137-145); Total Protein 5.9 g/dL (6.3-8.2)
[2022-03-29] MEDS: ALPRAZolam 0.5 MG TABLET PO (08:32)
[2022-03-29] MEDS: PRENATAL VIT,CALC/IRON/FOLIC 1 TABLET 1 TAB PO (08:32)
[2022-03-29] MEDS: FUROSEMIDE 40 MG/4 ML VIAL IV (08:32)
[2022-03-29] MEDS: DOCUSATE 100 MG CAPSULE PO (08:32)
[2022-03-29] MEDS: IBUPROFEN 600 MG TABLET PO (08:32)
[2022-03-29] MEDS: LABETALOL 100 MG TABLET 200 MG PO ×2 (08:32→21:09)
[2022-03-29] MEDS: SODIUM CHLORIDE 0.9% FLUSH 10 ML IV ×4 (08:33→23:56)
[2022-03-29] MEDS: FUROSEMIDE 40 MG/4 ML VIAL 20 MG IV (10:45)
--- NOTE | 2022-03-29 11:09 | PM.PN.1 ---
Subjective Subjective Date Patient Seen: 03/29/22 Interval history: 41 yo female w/underlying methamphetamine abuse, benzodiazepine dependence and chronic opioid dependence admitted at 39 2/7 weeks EGA in preeclampsia. She was admitted to ICU under care of MAINSPRING BARREL ASSEMBLY CLEANER and tele-ICU. She was tranferred out of ICU 03/27 but developed acute onset SOB on the evening of 03/28. She was found to have evidence of bilateral pneuomonia and initiated on IV Rocephin. Patient reports that she was short of breath prior to admission but had no other upper respiratory infection symptoms. She denies any aspiration events. She states she typically smokes methamphetamine and last used on the day of admission. She denies any use of chronic opiates but does states she takes Xanax daily. She denies any present shortness of breath, cough, headache, nausea, abdominal pain. She reports she is moving her bowels regularly. Blanco is draining clear urine. She did have evidence of acute respiratory failure last evening, in addition to being initiated on antibiotics, she received 80 mg of IV Lasix. She responded well to this. Exam Vital Signs (past 8 hours): - 03/29/22 04:00 03/29/22 05:04 03/29/22 05:51 Temperature 98.9 F Pulse Rate 83 90 85 Respiratory Rate 19 24 Blood Pressure 153/84 H 161/91 H 182/98 H Pulse Oximetry 96 Oxygen Flow Rate 03/29/22 05:53 03/29/22 06:28 03/29/22 06:28 Temperature Pulse Rate 90 95 H 95 H Respiratory Rate Blood Pressure 182/98 H 161/94 H 161/94 H Pulse Oximetry Oxygen Flow Rate 03/29/22 05:00 03/29/22 06:00 03/29/22 07:00 Temperature 98.3 F 98 F Pulse Rate 84 78 81 Respiratory Rate 25 H 18 19 Blood Pressure 186/91 H 159/99 H 164/96 H Pulse Oximetry 93 93 95 Oxygen Flow Rate 0 Fraction of Inspired Oxygen 28 Oxygen Delivery Method Room Air Oxygen Flow Rate 0 Narrative Exam Narrative: GEN: Adult female, drowsy, but arouses easily, Alert and oriented x 3, pale, NAD HEENT:NC, Face symmetric, very poor dentition with multiple broken teeth, especially molars CHEST: Respiratory excursions symmetric, coarse and diminished throughout, otherwise CTAB CV: RRR, no M/R/G ABD: Soft, obese, mildly tender, ND, BT present in all 4 quadrants, no organomegaly or masses appreciated EXTR: warm, well perfused, no C/C, 2+ bilateral foot edema, 1+ pretibial edema SKIN: warm and dry, no rash NEURO: Alert and oriented x 3, nonfocal Objective Labs Result Diagrams: 03/29/22 06:02 03/29/22 06:02 Labs: Laboratory Results - last 24 hr 03/28/22 03/28/22 03/28/22 11:20 11:20 19:50 WBC RBC Hgb Hct MCV MCH MCHC RDW Plt Count Neut % (Auto) Lymph % (Auto) [place] % (Auto) Eos % (Auto) Baso % (Auto) Neut # (Auto) Lymph # (Auto) [place] # (Auto) Eos # (Auto) Baso # (Auto) D-Dimer ABG pH 7.51 H ABG pCO2 31.1 L ABG pO2 84 ABG HCO3 25 ABG Total CO2 26 ABG O2 Saturation 97 ABG Base Excess 2.0 FiO2 21 Sodium 136 L Potassium 4.5 Chloride 105 Carbon Dioxide 27 BUN 13 Creatinine 0.77 Estimated GFR > 60 BUN/Creatinine Ratio 16.9 Glucose 114 H Hemoglobin A1c TNP Calcium 7.4 L Total Bilirubin AST ALT Alkaline Phosphatase NT-Pro-B Natriuret Pep Total Protein Albumin Globulin Albumin/Globulin Ratio Nasal Screen MRSA (PCR) Blood Type Antibody Screen Crossmatch 03/28/22 03/28/22 03/28/22 20:18 20:18 20:55 WBC 8.6 RBC 2.56 L Hgb 6.2 L* Hct 19.4 L* MCV 75.5 L MCH 24.4 L MCHC 32.3 RDW 18.1 H Plt Count 346 Neut % (Auto) 73.9 Lymph % (Auto) 11.8 L [place] % (Auto) 9.6 Eos % (Auto) 4.3 H Baso % (Auto) 0.4 Neut # (Auto) 6300 Lymph # (Auto) 1000 L [place] # (Auto) 800 Eos # (Auto) 400 Baso # (Auto) 0 D-Dimer ABG pH ABG pCO2 ABG pO2 ABG HCO3 ABG Total CO2 ABG O2 Saturation ABG Base Excess FiO2 Sodium 135 L Potassium 4.5 Chloride 102 Carbon Dioxide 29 BUN 13 Creatinine 0.74 Estimated GFR > 60 BUN/Creatinine Ratio 17.6 Glucose 106 H Hemoglobin A1c Calcium 7.7 L Total Bilirubin 0.4 AST 49 H ALT 47 H Alkaline Phosphatase 117 NT-Pro-B Natriuret Pep 1880 H Total Protein 6.0 L Albumin 2.9 L Globulin 3.1 Albumin/Globulin Ratio 0.9 L Nasal Screen MRSA (PCR) Blood Type A Positive Antibody Screen Negative Crossmatch See Detail 03/28/22 03/28/22 03/29/22 20:55 21:30 06:02 WBC 7.8 RBC 2.86 L Hgb 7.4 L Hct 22.2 L MCV 77.6 L MCH 25.9 L MCHC 33.3 RDW 17.4 H Plt Count 344 Neut % (Auto) 75.2 H Lymph % (Auto) 10.8 L [place] % (Auto) 9.6 Eos % (Auto) 4.0 Baso % (Auto) 0.4 Neut # (Auto) 5800 Lymph # (Auto) 800 L [place] # (Auto) 700 Eos # (Auto) 300 Baso # (Auto) 0 D-Dimer 3840 H ABG pH ABG pCO2 ABG pO2 ABG HCO3 ABG Total CO2 ABG O2 Saturation ABG Base Excess FiO2 Sodium Potassium Chloride Carbon Dioxide BUN Creatinine Estimated GFR BUN/Creatinine Ratio Glucose Hemoglobin A1c Calcium Total Bilirubin AST ALT Alkaline Phosphatase NT-Pro-B Natriuret Pep Total Protein Albumin Globulin Albumin/Globulin Ratio Nasal Screen MRSA (PCR) Negative for mrsa Blood Type Antibody Screen Crossmatch 03/29/22 06:02 WBC RBC Hgb Hct MCV MCH MCHC RDW Plt Count Neut % (Auto) Lymph % (Auto) [place] % (Auto) Eos % (Auto) Baso % (Auto) Neut # (Auto) Lymph # (Auto) [place] # (Auto) Eos # (Auto) Baso # (Auto) D-Dimer ABG pH ABG pCO2 ABG pO2 ABG HCO3 ABG Total CO2 ABG O2 Saturation ABG Base Excess FiO2 Sodium 135 L Potassium 4.3 Chloride 102 Carbon Dioxide 29 BUN 15 Creatinine 0.82 Estimated GFR > 60 BUN/Creatinine Ratio 18.3 Glucose 96 Hemoglobin A1c Calcium 7.2 L Total Bilirubin 0.6 AST 54 H ALT 48 H Alkaline Phosphatase 105 NT-Pro-B Natriuret Pep Total Protein 5.9 L Albumin 2.9 L Globulin 3.0 Albumin/Globulin Ratio 1.0 Nasal Screen MRSA (PCR) Blood Type Antibody Screen Crossmatch [facility] Medical History (Updated 03/28/22 @ 19:54 by Margo Davidson MD) COVID-19 Dental abscess Methamphetamine abuse Opiate abuse, episodic Pre-eclampsia Social History (System 03/24/22 @ 08:23 by Mary Vera) household members: other Smoking Status: Never smoker substance use type: marijuana, tranquilizers and methamphetamine Assessment & Plan Assessment & Plan narrative: 1. Bilateral pneumonia Given her underlying drug use, and likely altered state on the date of admission secondary to smoking methamphetamines, she is at higher risk for aspiration pneumonia. She has a documented penicillin allergy. She is tolerating Rocephin at this time. She is afebrile with normal oxygen saturations. White blood cell count is within normal limits. Consider broadening coverage for anaerobes if she has any worsening. However if she is clinically stable will continue the same course. 2. Preeclampsia Patient is status post vaginal delivery and management by OBGYN. She denies any present headache. Urine did reveal ongoing proteinuria on March 27. No headache. No seizures. Platelet count within normal limits. Continue diuresis per OBGYN. 3. Methamphetamine dependence Patient uses methamphetamine regularly. She primarily smokes it. Last use on the date of admission. 4. Opioid dependence Patient denies daily use. No evidence of withdrawal symptoms presently. 5. Benzodiazepine dependence She is on chronic daily alprazolam. This has been continued. 6. Status post spontaneous vaginal delivery at 39 2/7 weeks gestation She denies any residual symptoms/complaints. 7. Anemia Hemoglobin improved at 7.4 after receiving transfusion yesterday. 8. . Transaminitis Mild. Likely related to her preeclampsia. 9. Mild hyponatremia Stable. 10. Hypoalbuminemia Likely combination of , drug abuse, and malnutrition. Code status Full Prophylaxis Per OBGYN Disposition Per OBGYN Time Spent With Patient Critical Care time: I spent a total of [] minutes of critical care time on this patient's care today; this time is exclusive of procedural time.
--- NOTE | 2022-03-29 11:31 | PM.CN.EICU ---
History of Present Illness Consult details If camera was activated, add TeleICU A-V Statement: 41 year old female with H/o of anxiety, chronic benzodiazepine, opioid use and methamphetamine use, who presented in labor with preeclampsia on 03/24.? She had a normal vaginal delivery, overnight transferred back to ICU for hypertensive emergency causing pulmonary edema & acute hypoxemic respiratory failure. She also required 2 units of blood transfusion for low HB, no active visible bleed, she is on Ceftriaxone for E coli urinary tract infection a CTA? was neg for PE. Assessment: Pul edema 2/2 hypertensive emergency Hypervolemia/ Anasarca Acute hypoxemic respiratory failure 2/2 pul edema Pre-eclampsia Mild hepatitis E coli UTI H/o of Anxiety Chronic benzodiazepine, opioid use and methamphetamine use Rec: Increase Lasix to 60 mg Q8H ( goal 2-3 L neg daily, adjust dose accordingly ) Increase Hydralazine to 50 mg Q8H Keep Labetalol 200 mg bid Will likely be able to wean off slowly antihypertensives after volume status improves Dc ibuprofen and Tylenol (NSAIDs worsens BP and risk of ILDA with diuresis) Dc Tylenol, risk of worsening LFT, trend daily & check viral hepatitis panel Continue BZD prn and scheduled SCD for DVT ppx Tele ICU service, CCT 50 min Chief complaint: labor [facility] Medical History (Updated 03/28/22 @ 19:54 by Margo Davidson MD) COVID-19 Dental abscess Methamphetamine abuse Opiate abuse, episodic Pre-eclampsia Social History (System 03/24/22 @ 08:23 by Mary Vera) household members: other Smoking Status: Never smoker substance use type: marijuana, tranquilizers and methamphetamine Current Medications Current Medications Medications: Home Medications alprazolam 0.5 mg tablet (Xanax) 0.5 mg PO BID 03/26/22 [History Confirmed 03/26/22] hydralazine 10 mg tablet 10 mg PO TID #30 tabs 03/28/22 [Rx] labetalol 200 mg tablet 200 mg PO TID #90 tabs 03/28/22 [Rx] Visit Medications (administered) Generic Name Dose Route Start Last Admin Trade Name Freq PRN Reason Stop Dose Admin Alprazolam 0.5 mg 03/26/22 21:00 03/29/22 08:32 Alprazolam 0.5 Mg Tablet PO 0.5 mg BID FRANCK Administration Docusate Sodium 100 mg 03/24/22 09:39 03/29/22 08:32 Docusate 100 Mg Capsule PO 100 mg DAILY FRANCK Administration Heparin Sodium (Porcine) 50 unit 03/25/22 20:15 03/27/22 10:40 Heparin Flush (Cl/Picc/Mid-Line) 50 Unit/5 Ml Syringe IV 50 unit PRN PRN Administration Flush Ceftriaxone Sodium 1,000 mg/ 100 mls @ 200 mls/hr 03/28/22 20:00 03/28/22 22:50 Sodium Chloride IV Infused Q24H FRANCK Infusion Labetalol HCl 10 mg 03/24/22 16:39 03/29/22 05:53 Labetalol 20 Mg/4 Ml Syringe IV 10 mg Q4HR PRN Administration Blood Pressure - High Labetalol HCl 200 mg 03/26/22 21:00 03/29/22 08:32 Labetalol 100 Mg Tablet PO 200 mg BID FRANCK Administration Lorazepam 0.5 mg 03/25/22 05:48 03/29/22 04:35 Lorazepam 2 Mg/Ml Inj IV 0.5 mg Q4HR PRN Administration Anxiety Vit/Calcium/Iron/Folic Ac 1 tab 03/24/22 09:39 03/29/22 08:32 Vit,Calc/Iron/Folic 1 Tablet PO 1 tab DAILY FRANCK Administration Sodium Chloride 10 ml 03/24/22 17:19 03/28/22 05:37 Sodium Chloride 0.9% Flush IV 10 ml PRN PRN Administration Flush Sodium Chloride 10 ml 03/24/22 21:00 03/29/22 08:33 Sodium Chloride 0.9% Flush IV 10 ml BID FRANCK Administration Exam Vital Signs (past 8 hours): - 03/29/22 04:00 03/29/22 05:04 03/29/22 05:51 Temperature 98.9 F Pulse Rate 83 90 85 Respiratory Rate 19 24 Blood Pressure 153/84 H 161/91 H 182/98 H Pulse Oximetry 96 Oxygen Flow Rate 03/29/22 05:53 03/29/22 06:28 03/29/22 06:28 Temperature Pulse Rate 90 95 H 95 H Respiratory Rate Blood Pressure 182/98 H 161/94 H 161/94 H Pulse Oximetry Oxygen Flow Rate 03/29/22 05:00 03/29/22 06:00 03/29/22 07:00 Temperature 98.3 F 98 F Pulse Rate 84 78 81 Respiratory Rate 25 H 18 19 Blood Pressure 186/91 H 159/99 H 164/96 H Pulse Oximetry 93 93 95 Oxygen Flow Rate 0 Fraction of Inspired Oxygen 28 Oxygen Delivery Method Room Air Oxygen Flow Rate 0 Objective Labs Result Diagrams: 03/29/22 06:02 03/29/22 06:02 Labs: Laboratory Results - last 24 hr 03/28/22 03/28/22 03/28/22 11:20 11:20 19:50 WBC RBC Hgb Hct MCV MCH MCHC RDW Plt Count Neut % (Auto) Lymph % (Auto) [place] % (Auto) Eos % (Auto) Baso % (Auto) Neut # (Auto) Lymph # (Auto) [place] # (Auto) Eos # (Auto) Baso # (Auto) D-Dimer ABG pH 7.51 H ABG pCO2 31.1 L ABG pO2 84 ABG HCO3 25 ABG Total CO2 26 ABG O2 Saturation 97 ABG Base Excess 2.0 FiO2 21 Sodium 136 L Potassium 4.5 Chloride 105 Carbon Dioxide 27 BUN 13 Creatinine 0.77 Estimated GFR > 60 BUN/Creatinine Ratio 16.9 Glucose 114 H Hemoglobin A1c TNP Calcium 7.4 L Total Bilirubin AST ALT Alkaline Phosphatase NT-Pro-B Natriuret Pep Total Protein Albumin Globulin Albumin/Globulin Ratio Nasal Screen MRSA (PCR) Blood Type Antibody Screen Crossmatch 03/28/22 03/28/22 03/28/22 20:18 20:18 20:55 WBC 8.6 RBC 2.56 L Hgb 6.2 L* Hct 19.4 L* MCV 75.5 L MCH 24.4 L MCHC 32.3 RDW 18.1 H Plt Count 346 Neut % (Auto) 73.9 Lymph % (Auto) 11.8 L [place] % (Auto) 9.6 Eos % (Auto) 4.3 H Baso % (Auto) 0.4 Neut # (Auto) 6300 Lymph # (Auto) 1000 L [place] # (Auto) 800 Eos # (Auto) 400 Baso # (Auto) 0 D-Dimer ABG pH ABG pCO2 ABG pO2 ABG HCO3 ABG Total CO2 ABG O2 Saturation ABG Base Excess FiO2 Sodium 135 L Potassium 4.5 Chloride 102 Carbon Dioxide 29 BUN 13 Creatinine 0.74 Estimated GFR > 60 BUN/Creatinine Ratio 17.6 Glucose 106 H Hemoglobin A1c Calcium 7.7 L Total Bilirubin 0.4 AST 49 H ALT 47 H Alkaline Phosphatase 117 NT-Pro-B Natriuret Pep 1880 H Total Protein 6.0 L Albumin 2.9 L Globulin 3.1 Albumin/Globulin Ratio 0.9 L Nasal Screen MRSA (PCR) Blood Type A Positive Antibody Screen Negative Crossmatch See Detail 03/28/22 03/28/22 03/29/22 20:55 21:30 06:02 WBC 7.8 RBC 2.86 L Hgb 7.4 L Hct 22.2 L MCV 77.6 L MCH 25.9 L MCHC 33.3 RDW 17.4 H Plt Count 344 Neut % (Auto) 75.2 H Lymph % (Auto) 10.8 L [place] % (Auto) 9.6 Eos % (Auto) 4.0 Baso % (Auto) 0.4 Neut # (Auto) 5800 Lymph # (Auto) 800 L [place] # (Auto) 700 Eos # (Auto) 300 Baso # (Auto) 0 D-Dimer 3840 H ABG pH ABG pCO2 ABG pO2 ABG HCO3 ABG Total CO2 ABG O2 Saturation ABG Base Excess FiO2 Sodium Potassium Chloride Carbon Dioxide BUN Creatinine Estimated GFR BUN/Creatinine Ratio Glucose Hemoglobin A1c Calcium Total Bilirubin AST ALT Alkaline Phosphatase NT-Pro-B Natriuret Pep Total Protein Albumin Globulin Albumin/Globulin Ratio Nasal Screen MRSA (PCR) Negative for mrsa Blood Type Antibody Screen Crossmatch 03/29/22 06:02 WBC RBC Hgb Hct MCV MCH MCHC RDW Plt Count Neut % (Auto) Lymph % (Auto) [place] % (Auto) Eos % (Auto) Baso % (Auto) Neut # (Auto) Lymph # (Auto) [place] # (Auto) Eos # (Auto) Baso # (Auto) D-Dimer ABG pH ABG pCO2 ABG pO2 ABG HCO3 ABG Total CO2 ABG O2 Saturation ABG Base Excess FiO2 Sodium 135 L Potassium 4.3 Chloride 102 Carbon Dioxide 29 BUN 15 Creatinine 0.82 Estimated GFR > 60 BUN/Creatinine Ratio 18.3 Glucose 96 Hemoglobin A1c Calcium 7.2 L Total Bilirubin 0.6 AST 54 H ALT 48 H Alkaline Phosphatase 105 NT-Pro-B Natriuret Pep Total Protein 5.9 L Albumin 2.9 L Globulin 3.0 Albumin/Globulin Ratio 1.0 Nasal Screen MRSA (PCR) Blood Type Antibody Screen Crossmatch Assessment & Plan Time Spent With Patient Critical Care time: I spent a total of [] minutes of critical care time on this patient's care today; this time is exclusive of procedural time.
[2022-03-29] MEDS: HYDRALAZINE 10 MG TABLET 50 MG PO ×2 (13:08→21:08)
--- NOTE | 2022-03-29 13:35 | P.PN_ITS ---
Subjective Subjective Date Patient Seen: 03/28/22 Time Patient Seen: 11:15 Interval history: Patient is a 41-year-old 3 para 3 day # 4 status post spontaneous vaginal delivery. Patient had no care. She came in with severe preeclampsia. She had been using methamphetamine, marijuana, and opioids. She also uses benzodiazepines on add daily basis. Immediately patient went to the intensive care unit for magnesium sulfate and fluid management. She was transferred out of the intensive care unit to the acute care on March 27, 2022. Today the patient is short of breath. Pulse ox in the 90s. Blood pressure still in the 160s over 90s range. She is currently using labetalol and hydralazine to control blood pressure. She is also taking Ativan and Xanax to control anxiety. Exam Vital Signs (past 8 hours): - 03/29/22 05:51 03/29/22 05:53 03/29/22 06:28 Temperature Pulse Rate 85 90 95 H Respiratory Rate Blood Pressure 182/98 H 182/98 H 161/94 H Pulse Oximetry Oxygen Delivery Method Oxygen Flow Rate 03/29/22 06:28 03/29/22 06:00 03/29/22 07:00 Temperature 98.3 F 98 F Pulse Rate 95 H 78 81 Respiratory Rate 18 19 Blood Pressure 161/94 H 159/99 H 164/96 H Pulse Oximetry 93 95 Oxygen Delivery Method Oxygen Flow Rate 0 03/29/22 08:32 03/29/22 11:00 Temperature 97.8 F Pulse Rate 81 Respiratory Rate 16 Blood Pressure 165/89 H Pulse Oximetry 95 Oxygen Delivery Method Room Air Oxygen Flow Rate 0 Fraction of Inspired Oxygen 28 Oxygen Delivery Method Room Air Oxygen Flow Rate 0 Narrative Exam Narrative: Generally: Patient is sitting up in bed, tachypneic. Lungs: Decreased breath sounds at the bases Cardiovascular: Regular rate and rhythm Fundus: Firm at U -1 Extremities: 1+ pitting edema Objective Labs Result Diagrams: 03/29/22 06:02 03/29/22 06:02 Labs: Laboratory Results - last 24 hr 03/28/22 03/28/22 03/28/22 11:20 19:50 20:18 WBC 8.6 RBC 2.56 L Hgb 6.2 L* Hct 19.4 L* MCV 75.5 L MCH 24.4 L MCHC 32.3 RDW 18.1 H Plt Count 346 Neut % (Auto) 73.9 Lymph % (Auto) 11.8 L [place] % (Auto) 9.6 Eos % (Auto) 4.3 H Baso % (Auto) 0.4 Neut # (Auto) 6300 Lymph # (Auto) 1000 L [place] # (Auto) 800 Eos # (Auto) 400 Baso # (Auto) 0 D-Dimer ABG pH 7.51 H ABG pCO2 31.1 L ABG pO2 84 ABG HCO3 25 ABG Total CO2 26 ABG O2 Saturation 97 ABG Base Excess 2.0 FiO2 21 Sodium Potassium Chloride Carbon Dioxide BUN Creatinine Estimated GFR BUN/Creatinine Ratio Glucose Hemoglobin A1c TNP Calcium Total Bilirubin AST ALT Alkaline Phosphatase NT-Pro-B Natriuret Pep Total Protein Albumin Globulin Albumin/Globulin Ratio Nasal Screen MRSA (PCR) Blood Type Antibody Screen Crossmatch 03/28/22 03/28/22 03/28/22 20:18 20:55 20:55 WBC RBC Hgb Hct MCV MCH MCHC RDW Plt Count Neut % (Auto) Lymph % (Auto) [place] % (Auto) Eos % (Auto) Baso % (Auto) Neut # (Auto) Lymph # (Auto) [place] # (Auto) Eos # (Auto) Baso # (Auto) D-Dimer 3840 H ABG pH ABG pCO2 ABG pO2 ABG HCO3 ABG Total CO2 ABG O2 Saturation ABG Base Excess FiO2 Sodium 135 L Potassium 4.5 Chloride 102 Carbon Dioxide 29 BUN 13 Creatinine 0.74 Estimated GFR > 60 BUN/Creatinine Ratio 17.6 Glucose 106 H Hemoglobin A1c Calcium 7.7 L Total Bilirubin 0.4 AST 49 H ALT 47 H Alkaline Phosphatase 117 NT-Pro-B Natriuret Pep 1880 H Total Protein 6.0 L Albumin 2.9 L Globulin 3.1 Albumin/Globulin Ratio 0.9 L Nasal Screen MRSA (PCR) Blood Type A Positive Antibody Screen Negative Crossmatch See Detail 03/28/22 03/29/22 03/29/22 21:30 06:02 06:02 WBC 7.8 RBC 2.86 L Hgb 7.4 L Hct 22.2 L MCV 77.6 L MCH 25.9 L MCHC 33.3 RDW 17.4 H Plt Count 344 Neut % (Auto) 75.2 H Lymph % (Auto) 10.8 L [place] % (Auto) 9.6 Eos % (Auto) 4.0 Baso % (Auto) 0.4 Neut # (Auto) 5800 Lymph # (Auto) 800 L [place] # (Auto) 700 Eos # (Auto) 300 Baso # (Auto) 0 D-Dimer ABG pH ABG pCO2 ABG pO2 ABG HCO3 ABG Total CO2 ABG O2 Saturation ABG Base Excess FiO2 Sodium 135 L Potassium 4.3 Chloride 102 Carbon Dioxide 29 BUN 15 Creatinine 0.82 Estimated GFR > 60 BUN/Creatinine Ratio 18.3 Glucose 96 Hemoglobin A1c Calcium 7.2 L Total Bilirubin 0.6 AST 54 H ALT 48 H Alkaline Phosphatase 105 NT-Pro-B Natriuret Pep Total Protein 5.9 L Albumin 2.9 L Globulin 3.0 Albumin/Globulin Ratio 1.0 Nasal Screen MRSA (PCR) Negative for mrsa Blood Type Antibody Screen Crossmatch [facility] Medical History (Updated 03/28/22 @ 19:54 by Margo Davidson MD) COVID-19 Dental abscess Methamphetamine abuse Opiate abuse, episodic Pre-eclampsia Social History (System 03/24/22 @ 08:23 by Mary Vera) household members: other Smoking Status: Never smoker substance use type: marijuana, tranquilizers and methamphetamine Assessment & Plan Assessment & Plan narrative: Assessment: day # 4 status post spontaneous vaginal delivery, bleeding stable. Severe preeclampsia, off of magnesium sulfate times 24 hours. Still with significant edema and elevated blood pressures Anemia, stable Plan: Increased labetalol to 200 mg t.i.d. IV Lasix Consider chest x-ray Time Spent With Patient Time with patient: less than 30 minutes Critical Care time: I spent a total of [] minutes of critical care time on this patient's care today; this time is exclusive of procedural time.
--- NOTE | 2022-03-29 13:39 | P.PN_ITS ---
Subjective Subjective Date Patient Seen: 03/29/22 Time Patient Seen: 13:39 Interval history: Patient is day # 5 status post spontaneous vaginal delivery with severe preeclampsia. She was transferred back to the intensive care unit for pulmonary edema last evening. She received 2 units of blood overnight. She is receiving aggressive diuresis. She is diuresed 6 L of fluid. Patient is reclined at a 45 degree angle in bed. She is much more comfortable. She is much more conversive. Exam Vital Signs (past 8 hours): - 03/29/22 05:51 03/29/22 05:53 03/29/22 06:28 Temperature Pulse Rate 85 90 95 H Respiratory Rate Blood Pressure 182/98 H 182/98 H 161/94 H Pulse Oximetry Oxygen Delivery Method Oxygen Flow Rate 03/29/22 06:28 03/29/22 06:00 03/29/22 07:00 Temperature 98.3 F 98 F Pulse Rate 95 H 78 81 Respiratory Rate 18 19 Blood Pressure 161/94 H 159/99 H 164/96 H Pulse Oximetry 93 95 Oxygen Delivery Method Oxygen Flow Rate 0 03/29/22 08:32 03/29/22 11:00 Temperature 97.8 F Pulse Rate 81 Respiratory Rate 16 Blood Pressure 165/89 H Pulse Oximetry 95 Oxygen Delivery Method Room Air Oxygen Flow Rate 0 Fraction of Inspired Oxygen 28 Oxygen Delivery Method Room Air Oxygen Flow Rate 0 Narrative Exam Narrative: Generally: Patient is sitting up at a 45 degree angle, no acute distress Lungs: Still decreased breath sounds at the bases Cardiovascular: Regular rate and rhythm Fundus: Firm at U -2 Extremities: Significant decrease in the edema. 1+ DTRs. Feet still a little swollen. Objective Labs Result Diagrams: 03/29/22 06:02 03/29/22 06:02 Labs: Laboratory Results - last 24 hr 03/28/22 03/28/22 03/28/22 11:20 19:50 20:18 WBC 8.6 RBC 2.56 L Hgb 6.2 L* Hct 19.4 L* MCV 75.5 L MCH 24.4 L MCHC 32.3 RDW 18.1 H Plt Count 346 Neut % (Auto) 73.9 Lymph % (Auto) 11.8 L [place] % (Auto) 9.6 Eos % (Auto) 4.3 H Baso % (Auto) 0.4 Neut # (Auto) 6300 Lymph # (Auto) 1000 L [place] # (Auto) 800 Eos # (Auto) 400 Baso # (Auto) 0 D-Dimer ABG pH 7.51 H ABG pCO2 31.1 L ABG pO2 84 ABG HCO3 25 ABG Total CO2 26 ABG O2 Saturation 97 ABG Base Excess 2.0 FiO2 21 Sodium Potassium Chloride Carbon Dioxide BUN Creatinine Estimated GFR BUN/Creatinine Ratio Glucose Hemoglobin A1c TNP Calcium Total Bilirubin AST ALT Alkaline Phosphatase NT-Pro-B Natriuret Pep Total Protein Albumin Globulin Albumin/Globulin Ratio Nasal Screen MRSA (PCR) Blood Type Antibody Screen Crossmatch 03/28/22 03/28/22 03/28/22 20:18 20:55 20:55 WBC RBC Hgb Hct MCV MCH MCHC RDW Plt Count Neut % (Auto) Lymph % (Auto) [place] % (Auto) Eos % (Auto) Baso % (Auto) Neut # (Auto) Lymph # (Auto) [place] # (Auto) Eos # (Auto) Baso # (Auto) D-Dimer 3840 H ABG pH ABG pCO2 ABG pO2 ABG HCO3 ABG Total CO2 ABG O2 Saturation ABG Base Excess FiO2 Sodium 135 L Potassium 4.5 Chloride 102 Carbon Dioxide 29 BUN 13 Creatinine 0.74 Estimated GFR > 60 BUN/Creatinine Ratio 17.6 Glucose 106 H Hemoglobin A1c Calcium 7.7 L Total Bilirubin 0.4 AST 49 H ALT 47 H Alkaline Phosphatase 117 NT-Pro-B Natriuret Pep 1880 H Total Protein 6.0 L Albumin 2.9 L Globulin 3.1 Albumin/Globulin Ratio 0.9 L Nasal Screen MRSA (PCR) Blood Type A Positive Antibody Screen Negative Crossmatch See Detail 03/28/22 03/29/22 03/29/22 21:30 06:02 06:02 WBC 7.8 RBC 2.86 L Hgb 7.4 L Hct 22.2 L MCV 77.6 L MCH 25.9 L MCHC 33.3 RDW 17.4 H Plt Count 344 Neut % (Auto) 75.2 H Lymph % (Auto) 10.8 L [place] % (Auto) 9.6 Eos % (Auto) 4.0 Baso % (Auto) 0.4 Neut # (Auto) 5800 Lymph # (Auto) 800 L [place] # (Auto) 700 Eos # (Auto) 300 Baso # (Auto) 0 D-Dimer ABG pH ABG pCO2 ABG pO2 ABG HCO3 ABG Total CO2 ABG O2 Saturation ABG Base Excess FiO2 Sodium 135 L Potassium 4.3 Chloride 102 Carbon Dioxide 29 BUN 15 Creatinine 0.82 Estimated GFR > 60 BUN/Creatinine Ratio 18.3 Glucose 96 Hemoglobin A1c Calcium 7.2 L Total Bilirubin 0.6 AST 54 H ALT 48 H Alkaline Phosphatase 105 NT-Pro-B Natriuret Pep Total Protein 5.9 L Albumin 2.9 L Globulin 3.0 Albumin/Globulin Ratio 1.0 Nasal Screen MRSA (PCR) Negative for mrsa Blood Type Antibody Screen Crossmatch [facility] Medical History (Updated 03/28/22 @ 19:54 by Margo Davidson MD) COVID-19 Dental abscess Methamphetamine abuse Opiate abuse, episodic Pre-eclampsia Social History (System 03/24/22 @ 08:23 by Mary Vera) household members: other Smoking Status: Never smoker substance use type: marijuana, tranquilizers and methamphetamine Assessment & Plan Assessment & Plan narrative: Assessment/Plan: 41-year-old 3 para 3 day # 5 status post spontaneous vaginal delivery -bleeding/lochia normal Severe preeclampsia -still with elevated blood pressures, hydralazine dose increased Pulmonary edema/pneumonia -on ceftriaxone, IV Lasix q.8 hours -check electrolytes Anemia, most likelly chronic, hemolysis from preeclampsia -status post transfusion of 2 units of packed red blood cells Anxiety/withdrawal -continue Ativan/Xanax Time Spent With Patient Critical Care time: I spent a total of [] minutes of critical care time on this patient's care today; this time is exclusive of procedural time.
[2022-03-29] MEDS: FUROSEMIDE 40 MG/4 ML VIAL 60 MG IV (17:34)
[2022-03-29] MEDS: OXYCODONE IR 5 MG TABLET PO (18:30)
[2022-03-29 19:09] LABS: Add Manual Diff / Slide Review NO; Basophils Absolute Auto 0 /uL (0-100); Basophils Percent Auto 0.5 % (0-2); Eosinophils Absolute Auto 400 /uL (0-450); Eosinophils Percent Auto 5.3 % (2-4); Hematocrit 23.9 % (36-46); Hemoglobin 7.9 g/dL (12.0-16.0); Lymphocytes Absolute Auto 1000 /uL (1100-4500); Lymphocytes Percent Auto 13.4 % (25-40); Mean Corpuscular HGB Conc 32.9 % (30-36); Mean Corpuscular Hemoglobin 25.3 PG (26-34); Monocytes Absolute Auto 700 /uL (0-900); Neutrophils Absolute Auto 5200 /uL (1500-7000); Neutrophils Percent Auto 70.8 % (50-75); Platelet Count 383 X10^3/uL (150-400); Red Blood Cell Count 3.11 X10^6/uL (4.0-5.2); Red Cell Distribution Width 17.6 % (11.6-14.8); White Blood Cell Count 7.3 X10^3/uL (4.5-11.0)
[2022-03-29 19:42] LABS: Lactate Dehydrogenase 931 U/L (313-618)
[2022-03-29] MEDS: OXYCODONE IR 10 MG TABLET PO (19:51)
[2022-03-29] MEDS: cefTRIAXone 1,000 MG in SODIUM CHLORIDE 0.9% 100 ML 200 MG IV (19:52)
--- NOTE | 2022-03-29 20:51 | PM.ICURNDS ---
- :: This patient was seen via real time interactive two-way audiovisual telecommunication. Note: Pt SBP 160, on RA, diuresed 8 L today per nurse, will hold off the night dose of lasix, resume lasix in am 40 mg bid
[2022-03-29] MEDS: ALPRAZolam 0.25 MG TABLET 0.5 MG PO (21:10)
[2022-03-29] MEDS: KETOROLAC 30 MG/ML VIAL 15 MG IV (23:55)
[2022-03-30] VITALS (16 sets, daily range): BP systolic 130–178; BP diastolic 52–91; PULSE 76–105; RESP 15–25; TEMP 37–38.4; O2SAT 95–97
[2022-03-30] MEDS: OXYCODONE IR 10 MG TABLET PO (04:48)
[2022-03-30] MEDS: LORazepam 2 MG/ML INJ 0.5 MG IV ×4 (04:49→21:42)
[2022-03-30] MEDS: SODIUM CHLORIDE 0.9% FLUSH 10 ML IV ×5 (04:50→21:30)
[2022-03-30] MEDS: HYDRALAZINE 10 MG TABLET 50 MG PO ×3 (06:03→21:25)
[2022-03-30] MEDS: DOCUSATE 100 MG CAPSULE PO (09:03)
[2022-03-30] MEDS: ALPRAZolam 0.25 MG TABLET 0.5 MG PO ×2 (09:03→21:23)
[2022-03-30] MEDS: PRENATAL VIT,CALC/IRON/FOLIC 1 TABLET 1 TAB PO (09:03)
[2022-03-30] MEDS: FUROSEMIDE 40 MG TABLET PO (09:03)
[2022-03-30] MEDS: LABETALOL 100 MG TABLET 200 MG PO ×2 (09:03→21:24)
--- NOTE | 2022-03-30 09:46 | P.TELICUCN_ITS ---
History of Present Illness Consult details Chief complaint: labor Narrative: On RA, feels some improvement in her generalized swelling ( 8L of urine yesterday) SBP 150, had a migrain and was given Toradol, feels better. Assessment: Pul edema 2/2 hypertensive emergency Hypervolemia/ Anasarca Acute hypoxemic respiratory failure 2/2 pul edema Pre-eclampsia Mild hepatitis E coli UTI H/o of Anxiety Chronic benzodiazepine, opioid use and methamphetamine use Rec: Decrease Lasix to 40 mg Q12H ( goal 2-3 L neg daily, adjust dose accordingly ) Check daily BMP Continue Hydralazine to 50 mg Q8H Keep Labetalol 200 mg bid Will likely be able to wean off slowly antihypertensives after volume status improves Avoid NSAIDs (NSAIDs worsens BP and risk of ILDA with diuresis) LFT, trend daily & f/u viral hepatitis panel Trend LDH x 1 Continue BZD prn and scheduled SCD for DVT ppx [facility] Medical History (Updated 03/28/22 @ 19:54 by Margo Davidson MD) COVID-19 Dental abscess Methamphetamine abuse Opiate abuse, episodic Pre-eclampsia Social History (System 03/24/22 @ 08:23 by Mary Vera) household members: other Smoking Status: Never smoker substance use type: marijuana, tranquilizers and methamphetamine Current Medications Current Medications Medications: Home Medications alprazolam 0.5 mg tablet (Xanax) 0.5 mg PO BID 03/26/22 [History Confirmed 03/26/22] hydralazine 10 mg tablet 10 mg PO TID #30 tabs 03/28/22 [Rx] labetalol 200 mg tablet 200 mg PO TID #90 tabs 03/28/22 [Rx] Visit Medications (administered) Generic Name Dose Route Start Last Admin Trade Name Freq PRN Reason Stop Dose Admin Alprazolam 0.5 mg 03/29/22 21:00 03/30/22 09:03 Alprazolam 0.25 Mg Tablet PO 0.5 mg BID FRANCK Administration Docusate Sodium 100 mg 03/24/22 09:39 03/30/22 09:03 Docusate 100 Mg Capsule PO 100 mg DAILY FRANCK Administration Heparin Sodium (Porcine) 50 unit 03/25/22 20:15 03/27/22 10:40 Heparin Flush (Cl/Picc/Mid-Line) 50 Unit/5 Ml Syringe IV 50 unit PRN PRN Administration Flush Hydralazine HCl 50 mg 03/29/22 14:00 03/30/22 06:03 Hydralazine 10 Mg Tablet PO 50 mg Q8HR FRANCK Administration Ceftriaxone Sodium 1,000 mg/ 100 mls @ 200 mls/hr 03/28/22 20:00 03/29/22 20:25 Sodium Chloride IV Infused Q24H FRANCK Infusion Ketorolac Tromethamine 15 mg 03/29/22 23:49 03/29/22 23:55 Ketorolac 30 Mg/Ml Vial IV 04/03/22 23:50 15 mg Q6H PRN Administration Headache Labetalol HCl 10 mg 03/24/22 16:39 03/29/22 05:53 Labetalol 20 Mg/4 Ml Syringe IV 10 mg Q4HR PRN Administration Blood Pressure - High Labetalol HCl 200 mg 03/26/22 21:00 03/30/22 09:03 Labetalol 100 Mg Tablet PO 200 mg BID FRANCK Administration Lorazepam 0.5 mg 03/25/22 05:48 03/30/22 04:49 Lorazepam 2 Mg/Ml Inj IV 0.5 mg Q4HR PRN Administration Anxiety Oxycodone HCl 5 mg 03/29/22 10:10 03/29/22 18:30 Oxycodone Ir 5 Mg Tablet PO 5 mg Q6HR PRN Administration Pain, Moderate (4-6) Oxycodone HCl 10 mg 03/29/22 10:10 03/30/22 04:48 Oxycodone Ir 10 Mg Tablet PO 10 mg Q6HR PRN Administration Pain, Severe (7-10) Vit/Calcium/Iron/Folic Ac 1 tab 03/24/22 09:39 03/30/22 09:03 Vit,Calc/Iron/Folic 1 Tablet PO 1 tab DAILY FRANCK Administration Sodium Chloride 10 ml 03/24/22 17:19 03/30/22 04:50 Sodium Chloride 0.9% Flush IV 10 ml PRN PRN Administration Flush Sodium Chloride 10 ml 03/24/22 21:00 03/30/22 09:03 Sodium Chloride 0.9% Flush IV 10 ml BID FRANCK Administration Exam Vital Signs (past 8 hours): - 03/30/22 04:00 03/30/22 06:03 03/30/22 06:36 Temperature 99.0 F Pulse Rate 84 76 90 Respiratory Rate 15 Blood Pressure 161/84 H 178/91 H 168/86 H Pulse Oximetry 96 03/30/22 08:32 03/30/22 09:03 Temperature 100.6 F H Pulse Rate 104 H Respiratory Rate 25 H Blood Pressure 153/84 H 153/84 H Pulse Oximetry 95 Fraction of Inspired Oxygen 28 Oxygen Delivery Method Room Air Oxygen Flow Rate 0 Objective Labs Result Diagrams: 03/29/22 18:58 03/29/22 06:02 Labs: Laboratory Results - last 24 hr 03/28/22 03/29/22 03/29/22 11:20 18:58 18:58 WBC 7.3 RBC 3.11 L Hgb 7.9 L Hct 23.9 L MCV 77.0 L MCH 25.3 L MCHC 32.9 RDW 17.6 H Plt Count 383 Neut % (Auto) 70.8 Lymph % (Auto) 13.4 L [place] % (Auto) 10.0 Eos % (Auto) 5.3 H Baso % (Auto) 0.5 Neut # (Auto) 5200 Lymph # (Auto) 1000 L [place] # (Auto) 700 Eos # (Auto) 400 Baso # (Auto) 0 Hemoglobin A1c TNP Lactate Dehydrogenase 931 H Assessment & Plan Time Spent With Patient Critical Care time: I spent a total of [] minutes of critical care time on this patient's care today; this time is exclusive of procedural time.
[2022-03-30 10:52] LABS: Alanine Aminotransferase 40 IU/L (<35); Albumin 3.1 g/dL (3.5-5.0); Alkaline Phosphatase 108 U/L (38-126); Aspartate Aminotransferase 57 IU/L (14-36); BUN Creatinine Ratio 18.6 (6-22); Bilirubin Total 0.7 mg/dL (0.2-1.3); Blood Urea Nitrogen 16 mg/dL (7-17); Calcium 7.7 mg/dL (8.4-10.2); Carbon Dioxide 30 mmol/L (22-32); Chloride 101 mmol/L (98-107); Estimated Glomerular Filt Rate > 60 mL/min (>60); Glucose 96 mg/dL (70-100); HEMOLYSIS < 15 (0-50); Lactate Dehydrogenase 864 U/L (313-618); Potassium 4.3 mmol/L (3.4-5.1); Sodium 136 mmol/L (137-145); Total Protein 6.1 g/dL (6.3-8.2)
--- NOTE | 2022-03-30 11:16 | PC.NURSE ---
Addendum entered by Alfonso Tanner R.N. 03/30/22 19:20: After 1 time dose of phenergan and tylenol (per hospitalist), patient states her migraine improved. Medicated with ativan as needed fro anxiety (see MAR). Fever noted today and reported to both hospitalist and Dr. Underwood. Urine culture sent. Incentive spirometer to bedside. PICC line remains intact to left upper arm without sign of infection, dressing intact. Blanco remains in place, diuresing on lasix as ordered, with over 3L out this shift. Patient declined to mobilize today or get up to chair. Assisted with nahed care, pad with scant dark lochia changed once this shift. Patient states she is overall feeling better today. She states her sister tried to call her but she is not up for talking on the phone, gave this RN permission to talk to her sister Sindy ([phone]) with updates, but did not hear from her today. Patient states her mom called her yesterday and she says she may be able to go stay with her mom in [facility] for some help after discharge. Patient currently sleeping in bed, comfortable, call light within reach. Bed alarm on for safety. Original Note: Patient woke up and called asking for something specific for migraines. Patient reports she had a migraine and light sensitivity that started last night, and reports she hasn't had one in a long time. Dr. Ames notified of patient's complaint. Will follow for orders accordingly. Patient given an ice pack and is resting currently.
[2022-03-30] MEDS: PROMETHAZINE 25 MG TABLET 12.5 MG PO (11:54)
[2022-03-30] MEDS: ACETAMINOPHEN 325 MG TABLET 650 MG PO (11:55)
--- NOTE | 2022-03-30 13:11 | DIET.CONS2 ---
Dietary Inpatient Consultation Note Admission Date: 03/24/2022 05:48 Pt screened for LOS day 6. Pt admitted for eclampsia, ongoing after childbirth. Pt POs excellent yesterday after being diuresed, 75-100%. No nutrition needs identified. Diet: 03/24/22 Lunch General (Regular) Diet Diet Modifications: General (Regular) Diet Diet Modifications: Nutrition Percent Meal Consumed 100% 03/29/22 18:38 Percent Meal Consumed 100% 03/29/22 13:00 Percent Meal Consumed 75% 03/29/22 10:43 Percent Meal Consumed 25% 03/28/22 17:38 Electronically Signed by: Noni Skinner 03/30/22 13:11 Clinical Dietitian [address] [address]
--- NOTE | 2022-03-30 13:39 | P.PN_ITS ---
Subjective Subjective Interval history: headache , fever Exam Vital Signs (past 8 hours): - 03/30/22 06:03 03/30/22 06:36 03/30/22 08:32 Temperature 100.6 F H Pulse Rate 76 90 104 H Respiratory Rate 25 H Blood Pressure 178/91 H 168/86 H 153/84 H Pulse Oximetry 95 Oxygen Delivery Method Oxygen Flow Rate 03/30/22 09:03 03/30/22 08:00 03/30/22 11:57 Temperature 101.1 F H Pulse Rate 98 H Respiratory Rate 24 Blood Pressure 153/84 H 163/80 H Pulse Oximetry 97 Oxygen Delivery Method Room Air Oxygen Flow Rate 0 03/30/22 12:25 Temperature Pulse Rate 105 H Respiratory Rate Blood Pressure 152/79 H Pulse Oximetry Oxygen Delivery Method Oxygen Flow Rate Fraction of Inspired Oxygen 28 Oxygen Delivery Method Room Air Oxygen Flow Rate 0 Const General: cooperative and well developed Orientation: alert, awake and oriented x3 HENMT Head: normal to inspection Ears: external ears normal Mouth: oral mucosae normal Eyes Pupils: PERRL EOM: EOM intact bilaterally Neck Neck: normal visual inspection and full ROM Resp Effort & Inspection: normal respiratory effort Auscultation: clear to auscultation bilaterally Cardio Rate: regular rate Rhythm: regular rhythm GI Palpation: soft and no hepatosplenomegaly Auscultation: normal bowel sounds Skin General: no rashes or lesions noted Neuro General: patient alert, patient awake, patient oriented x3, moves all extremities and no focal motor deficits Speech: speech normal Extrem General: normal to inspection, full ROM and no pedal edema Psych Appearance: grossly normal Objective Labs Result Diagrams: 03/29/22 18:58 03/30/22 10:20 Labs: Laboratory Results - last 24 hr 03/29/22 03/29/22 03/30/22 18:58 18:58 10:20 WBC 7.3 RBC 3.11 L Hgb 7.9 L Hct 23.9 L MCV 77.0 L MCH 25.3 L MCHC 32.9 RDW 17.6 H Plt Count 383 Neut % (Auto) 70.8 Lymph % (Auto) 13.4 L [place] % (Auto) 10.0 Eos % (Auto) 5.3 H Baso % (Auto) 0.5 Neut # (Auto) 5200 Lymph # (Auto) 1000 L [place] # (Auto) 700 Eos # (Auto) 400 Baso # (Auto) 0 Sodium 136 L Potassium 4.3 Chloride 101 Carbon Dioxide 30 BUN 16 Creatinine 0.86 Estimated GFR > 60 BUN/Creatinine Ratio 18.6 Glucose 96 Calcium 7.7 L Total Bilirubin 0.7 AST 57 H ALT 40 H Alkaline Phosphatase 108 Lactate Dehydrogenase 931 H 864 H Total Protein 6.1 L Albumin 3.1 L Globulin 3.0 Albumin/Globulin Ratio 1.0 PFSH Medical History (Updated 03/28/22 @ 19:54 by Margo Davidson MD) COVID-19 Dental abscess Methamphetamine abuse Opiate abuse, episodic Pre-eclampsia Social History (System 03/24/22 @ 08:23 by Mary Vera) household members: other Smoking Status: Never smoker substance use type: marijuana, tranquilizers and methamphetamine Assessment & Plan Assessment & Plan narrative: Pneumonia now with fever , if concern about aspiration needs to be changed to Zosyn - stop ceftriaxone -start Zosyn IV Preeclampsia pt is under care of OBGYN -continue diuresis per Polysubstance abuse -counseled Status post spontaneous vaginal delivery at 39 2/7 weeks gestation - continue care per OBGYN primary team Anemia hgb stable - cbc daily Transaminitis - trend LFTs Code status Full Prophylaxis Per OBGYN Time Spent With Patient Critical Care time: I spent a total of [] minutes of critical care time on this patient's care today; this time is exclusive of procedural time.
[2022-03-30 15:42] LABS: Add Manual Diff / Slide Review NO; Basophils Absolute Auto 0 /uL (0-100); Basophils Percent Auto 0.5 % (0-2); Eosinophils Absolute Auto 200 /uL (0-450); Hematocrit 24.4 % (36-46); Lymphocytes Absolute Auto 1100 /uL (1100-4500); Mean Corpuscular HGB Conc 32.8 % (30-36); Mean Corpuscular Hemoglobin 25.4 PG (26-34); Mean Corpuscular Volume 77.4 fL (80-100); Monocytes Absolute Auto 900 /uL (0-900); Monocytes Percent Auto 12.8 % (3-14); Neutrophils Absolute Auto 4800 /uL (1500-7000); Neutrophils Percent Auto 68.7 % (50-75); Platelet Count 444 X10^3/uL (150-400); Red Blood Cell Count 3.15 X10^6/uL (4.0-5.2); Red Cell Distribution Width 17.5 % (11.6-14.8)
--- NOTE | 2022-03-30 15:48 | CM.DPC ---
DCP Cont: Per OBGYN, pt was moved back to ICU this weekend due to pulmonary edema, received 2 units of blood, and has been getting aggressive diuresis with significant liters removed. Pt likely still not stable for d/c yet today but making some progress. SW met bedside with pt and explained role again and pt confirms she is starting to feel better but still tired and weak. SW provided a print out copy of the information that AD Counselors gave SW regarding the number to call for [employer] and the information about requesting [facility] vs [facility] and discussed with pt and encouraged her to call while admitted to get insurance coverage that would likely also cover the cost of her new meds MD will prescribe for pt at d/c. Pt states she is agreeable to doing this but not right now, I want to sleep. SW left copy with all the information on it. SW inquired if pt was aware of plan of continuing FTDM mtg tomorrow 03/31/22 once CPS worker Tamara is back from the holiday today to further discuss pt and baby d/c plan and if pt wants to move forward with trying to have custody of baby boy and NIESHA tx. Pt states she does not feel the FTDM meeting will factor in what I want and states she no longer wants to talk about CPS or a plan right now. Per RN, pt requests that RN call her sister (and provided sister with contact name and number) and give her a medical update and SW inquired if pt would like assist to get sister on phone so pt could talk to her and pt declines at this time. Plan: SW to follow closely for f/u with pt regarding information given to call [employer] for insurance for d/c rx needs and f/u as outpt and discussion with CPS Tamara [phone] if meeting to happen with pt tomorrow. DAIANA Meredith
[2022-03-30] MEDS: PIPERACILLIN/TAZO 3.375 GM in SODIUM CHLORIDE 0.9% 100 ML IV (17:18)
[2022-03-30] MEDS: SODIUM CHLORIDE 0.9% 250 ML 21 ML IV (17:25)
--- NOTE | 2022-03-30 17:32 | PM.PN.1 ---
Subjective Subjective Date Patient Seen: 03/30/22 Time Patient Seen: 17:32 Interval history: Patient is a 41-year-old day # 6 status post a spontaneous vaginal delivery. Severe preeclampsia requiring intensive care unit stay. She has had significant diuresis over the last 24 hours. Her breathing is much better. She is feeling well except little fatigue. Had a fever earlier today. White blood count normal. Repeat urine culture sent. Patient does have a right upper lobe pneumonia for which she has been treating with antibiotics. This was changed by the hospitalist this afternoon from a cephalosporin to Zosyn. Electrolytes have been normal. Hematocrit stabilized at 24. She did receive 2 units of blood on Wednesday. Exam Vital Signs (past 8 hours): - 03/30/22 11:57 03/30/22 12:25 03/30/22 15:31 Temperature 101.1 F H Pulse Rate 98 H 105 H 93 H Respiratory Rate 24 Blood Pressure 163/80 H 152/79 H 152/79 H Pulse Oximetry 97 Oxygen Flow Rate 0 03/30/22 15:35 Temperature 99.6 F Pulse Rate 99 H Respiratory Rate 18 Blood Pressure 152/79 H Pulse Oximetry Oxygen Flow Rate Fraction of Inspired Oxygen 28 Oxygen Delivery Method Room Air Oxygen Flow Rate 0 Narrative Exam Narrative: Generally: Patient lying flat on her left side, no acute distress Lungs: Decreased breath sounds in the right upper lobe and at both bases Cardiovascular: Regular rate and rhythm Abdomen: Soft, nontender. Fundus: Firm at U -3, nontender Extremities: Trace edema in her legs, 1+ DTRs Objective Labs Result Diagrams: 03/30/22 15:20 03/30/22 10:20 Labs: Laboratory Results - last 24 hr 03/29/22 03/29/22 03/30/22 18:58 18:58 10:20 WBC 7.3 RBC 3.11 L Hgb 7.9 L Hct 23.9 L MCV 77.0 L MCH 25.3 L MCHC 32.9 RDW 17.6 H Plt Count 383 Neut % (Auto) 70.8 Lymph % (Auto) 13.4 L [place] % (Auto) 10.0 Eos % (Auto) 5.3 H Baso % (Auto) 0.5 Neut # (Auto) 5200 Lymph # (Auto) 1000 L [place] # (Auto) 700 Eos # (Auto) 400 Baso # (Auto) 0 Sodium 136 L Potassium 4.3 Chloride 101 Carbon Dioxide 30 BUN 16 Creatinine 0.86 Estimated GFR > 60 BUN/Creatinine Ratio 18.6 Glucose 96 Calcium 7.7 L Total Bilirubin 0.7 AST 57 H ALT 40 H Alkaline Phosphatase 108 Lactate Dehydrogenase 931 H 864 H Total Protein 6.1 L Albumin 3.1 L Globulin 3.0 Albumin/Globulin Ratio 1.0 03/30/22 15:20 WBC 7.0 RBC 3.15 L Hgb 8.0 L Hct 24.4 L MCV 77.4 L MCH 25.4 L MCHC 32.8 RDW 17.5 H Plt Count 444 H Neut % (Auto) 68.7 Lymph % (Auto) 15.0 L [place] % (Auto) 12.8 Eos % (Auto) 3.0 Baso % (Auto) 0.5 Neut # (Auto) 4800 Lymph # (Auto) 1100 [place] # (Auto) 900 Eos # (Auto) 200 Baso # (Auto) 0 Sodium Potassium Chloride Carbon Dioxide BUN Creatinine Estimated GFR BUN/Creatinine Ratio Glucose Calcium Total Bilirubin AST ALT Alkaline Phosphatase Lactate Dehydrogenase Total Protein Albumin Globulin Albumin/Globulin Ratio [facility] Medical History (Updated 03/28/22 @ 19:54 by Margo Davidson MD) COVID-19 Dental abscess Methamphetamine abuse Opiate abuse, episodic Pre-eclampsia Social History (System 03/24/22 @ 08:23 by Mary Vera) household members: other Smoking Status: Never smoker substance use type: marijuana, tranquilizers and methamphetamine Assessment & Plan Assessment & Plan narrative: Assessment: 41-year-old day # 6 after spontaneous vaginal delivery Severe preeclampsia Significant diuresis and normal electrolytes Pneumonia Antibiotic changed to Zosyn Recommend incentive spirometry Anemia Most likely multifactorial Fever Urine sent for culture Plan: Continue discharge planning Continue diuresis Continue IV antibiotics Add incentive spirometry Await urine culture results Time Spent With Patient Critical Care time: I spent a total of [] minutes of critical care time on this patient's care today; this time is exclusive of procedural time.
[2022-03-30] MEDS: FUROSEMIDE 40 MG/4 ML VIAL IV (21:27)
[2022-03-31] VITALS (14 sets, daily range): BP systolic 114–160; BP diastolic 58–89; PULSE 85–102; RESP 17–25; TEMP 36.6–37.4; O2SAT 95–98
[2022-03-31 00:07] LABS: HBsAg Screen Negative (Negative); Hepatitis A Antibody IgM Negative (Negative); Hepatitis B Core Antibody IgM Negative (Negative); Hepatitis C Antibody <0.1 s/co ratio (0.0-0.9)
[2022-03-31] MEDS: PIPERACILLIN/TAZO 3.375 GM in SODIUM CHLORIDE 0.9% 100 ML IV ×3 (00:55→16:07)
[2022-03-31] MEDS: LORazepam 2 MG/ML INJ 0.5 MG IV ×5 (05:40→22:17)
[2022-03-31] MEDS: HYDRALAZINE 10 MG TABLET 50 MG PO (06:33)
--- NOTE | 2022-03-31 07:29 | PC.NURSE ---
End of shift note. Care of patient from [id number]. Patient wakes up for cares, c/o being anxious, says i am withdrawing, calms down with xanax and PRN ativan. Refused to get OOB at beginning of shift. SR [address]
[2022-03-31 07:38] LABS: Haptoglobin 251 mg/dL (33-278)
[2022-03-31] MEDS: FUROSEMIDE 40 MG TABLET PO ×2 (08:33→17:41)
[2022-03-31] MEDS: DOCUSATE 100 MG CAPSULE PO (08:33)
[2022-03-31] MEDS: ALPRAZolam 0.25 MG TABLET 0.5 MG PO ×2 (08:33→20:25)
[2022-03-31] MEDS: LABETALOL 100 MG TABLET 200 MG PO ×2 (08:33→20:24)
[2022-03-31] MEDS: PRENATAL VIT,CALC/IRON/FOLIC 1 TABLET 1 TAB PO (08:38)
--- NOTE | 2022-03-31 14:23 | PM.PN.1 ---
Subjective Subjective Interval history: no major complaints today Exam Vital Signs (past 8 hours): - 03/31/22 06:33 03/31/22 07:57 03/31/22 07:00 Temperature 98 F Pulse Rate 89 95 H Respiratory Rate 22 Blood Pressure 160/82 H 157/87 H 157/89 H Pulse Oximetry 97 Oxygen Flow Rate 0 03/31/22 08:33 03/31/22 09:00 03/31/22 11:15 Temperature 97.8 F Pulse Rate 97 H 95 H Respiratory Rate 20 Blood Pressure 128/73 149/70 H 129/70 Pulse Oximetry 96 Oxygen Flow Rate 0 03/31/22 13:48 Temperature 98 F Pulse Rate 102 H Respiratory Rate 25 H Blood Pressure 114/73 Pulse Oximetry 97 Oxygen Flow Rate 0 Fraction of Inspired Oxygen 28 Oxygen Delivery Method Room Air Oxygen Flow Rate 0 Narrative Exam Narrative: Const General: cooperative and well developed Orientation: alert, awake and oriented x3 HENMT Head: normal to inspection Ears: external ears normal Mouth: oral mucosae normal Eyes Pupils: PERRL EOM: EOM intact bilaterally Neck Neck: normal visual inspection and full ROM Resp Effort & Inspection: normal respiratory effort Auscultation: clear to auscultation bilaterally Cardio Rate: regular rate Rhythm: regular rhythm GI Palpation: soft and no hepatosplenomegaly Auscultation: normal bowel sounds Skin General: no rashes or lesions noted Neuro General: patient alert, patient awake, patient oriented x3, moves all extremities and no focal motor deficits Speech: speech normal Extrem General: normal to inspection, full ROM and no pedal edema Psych Appearance: grossly normal Objective Labs Result Diagrams: 03/30/22 15:20 03/30/22 10:20 Labs: Laboratory Results - last 24 hr 03/29/22 03/29/22 03/30/22 19:05 19:05 15:20 WBC 7.0 RBC 3.15 L Hgb 8.0 L Hct 24.4 L MCV 77.4 L MCH 25.4 L MCHC 32.8 RDW 17.5 H Plt Count 444 H Neut % (Auto) 68.7 Lymph % (Auto) 15.0 L [place] % (Auto) 12.8 Eos % (Auto) 3.0 Baso % (Auto) 0.5 Neut # (Auto) 4800 Lymph # (Auto) 1100 [place] # (Auto) 900 Eos # (Auto) 200 Baso # (Auto) 0 Haptoglobin 251 Hepatitis A IgM Ab Negative Hep Bs Antigen Negative Hep B Core IgM Ab Negative Hepatitis C Antibody <0.1 Hep C Ab Signal/Cutoff Comment PFSH Medical History (Updated 03/28/22 @ 19:54 by Margo Davidson MD) COVID-19 Dental abscess Methamphetamine abuse Opiate abuse, episodic Pre-eclampsia Social History (System 03/24/22 @ 08:23 by Mary Vera) household members: other Smoking Status: Never smoker substance use type: marijuana, tranquilizers and methamphetamine Assessment & Plan Assessment & Plan narrative: Pneumonia afebrile, no WBC -continue Zosyn IV ?Preeclampsia ?pt is under care of OBGYN -continue diuresis per ?Polysubstance abuse -counseled ?Status post spontaneous vaginal delivery at 39 2/7 weeks gestation ?- continue care per OBGYN primary team ? Anemia ? hgb stable - cbc daily ?Transaminitis ?- trend LFTs Code status Full Prophylaxis Per OBGYN Discussed with OBGYN team, pt and rn Time Spent With Patient Critical Care time: I spent a total of [] minutes of critical care time on this patient's care today; this time is exclusive of procedural time.
--- NOTE | 2022-03-31 17:37 | PC.NURSE ---
2259 - Asked by primary RN to visit with patient. Patient is requesting to pump breast milk. Discussed discharge plans with patient. She states that her baby will be returned to her at time of discharge tomorrow. She is concerned that multiple days since delivery without pumping may result in reduced milk supply. Patient clearly states her intent to breast feed. Discussed recreational and prescribed medication half-life, and that this would be an important conversation to have with her NUCLEAR MEDICINE PHYSICIAN. Attempt to discuss interactions with CM and CPS, patient declined to give details other than, I get my baby back tomorrow. Unable to locate clearly defined plan to review with patient at this time. CM not currently available. Patient agreeable to resume conversation in the morning with admitting provider and CM.
--- NOTE | 2022-03-31 18:58 | DI.RAD.S_ITS ---
PROCEDURE: XR CHEST 2V INDICATIONS: pneumonia TECHNIQUE: 2 views of the chest were acquired. COMPARISON: Merged With [facility], CT, CT ANGIO CHEST PE PROTOCOL, 03/28/2022, 22:31. Merged With [facility], CR, XR CHEST 2V, 03/28/2022, 18:54. FINDINGS: Surgical changes and devices: None. Lungs and pleura: Subtle opacity noted in the right upper lobe which is decreased in size compared to prior exams. No pleural effusions or pneumothorax. Mediastinum: Mediastinal contours are normal. Heart size is normal. Bones and chest wall: No suspicious bony abnormalities. Soft tissues appear unremarkable. IMPRESSION: Right upper lobe opacity compatible with pneumonia decreased in size without complete resolution. Dictated by: Chantelle Santiago MD, PhD on 04/01/2022 at 9:22 Approved by: Chantelle Santiago MD, PhD on 04/01/2022 at 9:23
--- NOTE | 2022-03-31 20:20 | PM.PN.1 ---
Subjective Subjective Date Patient Seen: 03/31/22 Time Patient Seen: 17:30 Interval history: Patient is a 41 year old PPD#8 s/p . Severe preeclampsia. Pulmonary edema and pneumonia. Drug use with withdrawal. Blanco catheter is out and pt has been getting up to void. She showered today. She has been out of bed to chair multiple times today. She is starting to plan for after discharge. Baby is at [facility] in w/drawal protocol. She is feeling much better this evening. She is not voiding as much or as often. Patient is interested in pumping and dumping. Exam Vital Signs (past 8 hours): - 03/31/22 13:48 03/31/22 20:00 Temperature 98 F 98.3 F Pulse Rate 102 H 96 H Respiratory Rate 25 H 18 Blood Pressure 114/73 118/58 L Pulse Oximetry 97 95 Oxygen Flow Rate 0 Fraction of Inspired Oxygen 28 Oxygen Delivery Method Room Air Oxygen Flow Rate 0 Narrative Exam Narrative: Generally: Pt alert and awake and conversive, sitting up in bed. Patient smiling. Lungs: CTA bilaterally CV: RRR Abd: soft, nontender. Good BS's Fundus: Firm U-3 Ext: Trace edema, negative Jeremias's, 1+ DTR's Objective Labs Result Diagrams: 03/30/22 15:20 03/30/22 10:20 Labs: Laboratory Results - last 24 hr 03/29/22 03/29/22 19:05 19:05 Haptoglobin 251 Hepatitis A IgM Ab Negative Hep Bs Antigen Negative Hep B Core IgM Ab Negative Hepatitis C Antibody <0.1 Hep C Ab Signal/Cutoff Comment [facility] Medical History (Updated 03/28/22 @ 19:54 by Margo Davidson MD) COVID-19 Dental abscess Methamphetamine abuse Opiate abuse, episodic Pre-eclampsia Social History (System 03/24/22 @ 08:23 by Mary Vera) household members: other Smoking Status: Never smoker substance use type: marijuana, tranquilizers and methamphetamine Assessment & Plan Assessment & Plan narrative: Assessment: Preeclampsia, resolving. BP's still labile Pulmonary edema, resolving Pneumonia, on Zosyn and incentive spirometry Drug Withdrawal, seems to be through the worst Plan: Ambulate tonight Repeat CXR in the morning Repeat CMP and CBC in the morning Center personnel to come and educate on pumping/dumping Begin d/c planning Time Spent With Patient Critical Care time: I spent a total of [] minutes of critical care time on this patient's care today; this time is exclusive of procedural time.
[2022-03-31] MEDS: SODIUM CHLORIDE 0.9% FLUSH 10 ML IV (20:37)
[2022-04-01] VITALS: BP 136/74; PULSE 87; RESP 16; TEMP 37; O2SAT 96
[2022-04-01] MEDS: PIPERACILLIN/TAZO 3.375 GM in SODIUM CHLORIDE 0.9% 100 ML IV ×2 (00:24→08:12)
[2022-04-01 04:00] VITALS: BP 113/66; PULSE 82; RESP 17; TEMP 37; O2SAT 96
[2022-04-01 05:38] LABS: Add Manual Diff / Slide Review NO; Basophils Absolute Auto 100 /uL (0-100); Basophils Percent Auto 1.3 % (0-2); Eosinophils Absolute Auto 200 /uL (0-450); Eosinophils Percent Auto 3.1 % (2-4); Hematocrit 27.4 % (36-46); Hemoglobin 9.2 g/dL (12.0-16.0); Lymphocytes Absolute Auto 1000 /uL (1100-4500); Lymphocytes Percent Auto 13.8 % (25-40); Mean Corpuscular HGB Conc 33.6 % (30-36); Mean Corpuscular Hemoglobin 26.1 PG (26-34); Mean Corpuscular Volume 77.5 fL (80-100); Monocytes Absolute Auto 900 /uL (0-900); Monocytes Percent Auto 11.5 % (3-14); Neutrophils Absolute Auto 5400 /uL (1500-7000); Neutrophils Percent Auto 70.3 % (50-75); Platelet Count 487 X10^3/uL (150-400); Red Blood Cell Count 3.53 X10^6/uL (4.0-5.2); Red Cell Distribution Width 18.2 % (11.6-14.8); White Blood Cell Count 7.6 X10^3/uL (4.5-11.0)
[2022-04-01 05:55] LABS: Alanine Aminotransferase 33 IU/L (<35); Albumin 3.5 g/dL (3.5-5.0); Albumin Globulin Ratio 1.1 (1.0-2.8); Alkaline Phosphatase 104 U/L (38-126); Aspartate Aminotransferase 35 IU/L (14-36); BUN Creatinine Ratio 18.2 (6-22); Bilirubin Total 0.8 mg/dL (0.2-1.3); Blood Urea Nitrogen 18 mg/dL (7-17); Calcium 8.2 mg/dL (8.4-10.2); Carbon Dioxide 24 mmol/L (22-32); Chloride 104 mmol/L (98-107); Estimated Glomerular Filt Rate > 60 mL/min (>60); Globulin 3.2 g/dL (1.7-4.1); Glucose 96 mg/dL (70-100); HEMOLYSIS < 15 (0-50); Potassium 4.2 mmol/L (3.4-5.1); Sodium 137 mmol/L (137-145); Total Protein 6.7 g/dL (6.3-8.2)
--- NOTE | 2022-04-01 07:07 | PC.NURSE ---
End of shift report. Care of patient from . Patient AAOX4, gave Ativan 0.5mg IV X1 at beginning of shift, patient slept well, used call light for assist. Up to BR voiding. Small amount of red old lochia. Plan is to hopefully discharge home today.
[2022-04-01 07:58] VITALS: BP 125/82; PULSE 99; RESP 18; TEMP 37.3; O2SAT 98
[2022-04-01 08:11] VITALS: BP 125/82; PULSE 100
[2022-04-01] MEDS: ALPRAZolam 0.25 MG TABLET 0.5 MG PO (08:11)
[2022-04-01] MEDS: FUROSEMIDE 40 MG TABLET PO (08:11)
[2022-04-01] MEDS: LABETALOL 100 MG TABLET 200 MG PO (08:11)
[2022-04-01] MEDS: SODIUM CHLORIDE 0.9% FLUSH 10 ML IV (08:12)
[2022-04-01] MEDS: PRENATAL VIT,CALC/IRON/FOLIC 1 TABLET 1 TAB PO (08:12)
--- NOTE | 2022-04-01 12:59 | CM.DPC ---
DCP/continued: Received verbal referral from Dr. Underwood this AM requesting that patient get assistance to obtain Medicaid and assistance with prescriptions if she does not have Medicaid prior to her departure. Patient medically stable today. RECREATION THERAPIST notified admit counselor's and they report that they have given patient number to call. Patient requiring BP medications totaling approximately $30.00. RECREATION THERAPIST completed medical nessecity form for patient to obtain medication from [facility]. Patient also requiring taxi voucher to get to her vehicle. [employer] taxi agreeable and RECREATION THERAPIST completed cab voucher for $8.00. In addition to the above, RECREATION THERAPIST spoke with C.P.S. worker/Tamara she reports that meeting with bronze plater and patient scheduled today at 2:30pm in [facility] office. Patient provided all needed information for meeting and strongly urged to go. No additional needs identified at this time. P: Home today. Patient has outpatient scheduled C.P.S. meeting in at 2:30pm. Patient given address and phone number to her C.P.S worker. [place]
--- NOTE | 2022-04-06 14:33 | CM.DPNOTE ---
Phone call from pt post discharge stating she has filled her script for labetalol that was written by Dr. Underwood but pt states she is under the impression that she were to d/c on other medications as well (like the alprazolam/Xanax) that Dr. Underwood discontinued at d/c and pt feeling very frustrated that she has not been able to speak to someone that can help me get my medications as I don't feel well. Unfortunately no d/c summary available at this time and SW discussed the only medication written for d/c is labatalol and confirmed pt has a f/u appointment with Dr. Underwood but pt states she is trying to get to [facility] and wants to figure out if she can take some other meds to feel better. SW encouraged her to attempt to get into Dr. Underwood or OB in her clinic today or tomorrow or to call Dr. Underwood's RN with her concerns. SW also encouraged her to go to the [facility] if she cannot get into OB office and isn't feeling well. Pt very frustrated with this SW for not being able to answer her medication questions at this time and hung up. DAIANA Meredith
--- NOTE | 2022-04-16 06:48 | PM.OBDS.1 ---
Discharge Providers Provider Date of admission: 03/24/22 05:48 Discharge Date: 04/01/22 Consults: 03/24/22 08:44 Consult to Hospitalist Service Routine Comment: Consulting Provider: Belia Underwood Reason for consultation: Severe preeclampsia Has provider been notified: Yes 03/24/22 09:39 Consult to Tele-reproduction order processor Routine Comment: Consulting Provider: Tracy Tele-intensivists Reason for consultation: Electric Stove Installer services 03/25/22 07:34 Consult to Manager Membership Routine Comment: 03/28/22 19:23 Consult to Hospitalist Service Routine Comment: Consulting Provider: John Ames Reason for consultation: sob, fluid overload Discharge provider: Belia Underwood MD Summary Hospital Course Date Patient Seen: 04/01/22 Time Patient Seen: 07:30 Diagnoses: 39 weeks gestation Severe preeclampsia Methamphetamine and benzodiazepine use Pulmonary edema No care Hospital Course: Patient is a 41-year-old 5 para 5 who presented to Labor and delivery on March 24, 2022 in active labor with blood pressures in the 180s over 120 range. She was treated with IV hydralazine and labetalol. She received an epidural for pain management. She progressed to complete dilation. She pushed for some time without descent of the head. A decision was made to move her to the operating room for possible section due to no care and unknown dates or size of the baby. Upon moving to the operating room baby came down and she had a spontaneous vaginal delivery in the operating room. Post delivery she went to the intensive care unit for management of extremely high blood pressure. She remained in the intensive care unit under the care of the tele ICU reproduction order processor. Once her blood pressure was controlled, she was moved to the floor on March 28, 2022. She remained there for 24 hours. Due to shortness of breath and pulmonary edema she was moved back to the intensive care unit where she was aggressively diuresed. She continued on oral labetalol. She was discharged home on April 01, 2022 on oral hypertensives. Peripartum Data Delivery Method: Natural Vaginal Laceration Description: None Episiotomy description: None Procedures: Epidural analgesia Spontaneous vaginal delivery Hypertension requiring IV medications Diuresis complications: other (Severe hypertension and preeclampsia) [place] 1: Gender: Male Disposition of : other (Transferred to [facility] for withdrawals) Status at Discharge Cognitive/behavioral status at discharge: oriented Functional status at discharge: independent ambulation Overall status at discharge: patient is progressing back to baseline Time Spent with Patient Time attestation: Total time spent providing and/or coordinating discharge services: Time spent: Less than 30 minutes Objective Labs Result Diagrams: 04/01/22 05:20 04/01/22 05:20 Exam Vital Signs (past 8 hours): Fraction of Inspired Oxygen 28 Oxygen Delivery Method Room Air Oxygen Flow Rate 0 Narrative Exam Narrative: Generally: A well-developed, well-nourished female, sitting up in chair, no acute distress Lungs: Clear to auscultation bilaterally Cardiovascular: Regular rate and rhythm Fundus: Firm at U -3 Extremities: Trace edema, 1+ DTRs, no clonus Discharge Plan Discharge Plan Patient Disposition: Home Provider Discharge Comment: Call with fever, chills, or bleeding vaginally more than a pad in an hour Call with headache, blurred vision, or spots before your eyes Call with right upper quadrant pain Ibuprofen 600 mg every 6 hours as needed for cramping Discharge orders & Medications Prescriptions: New labetalol 200 mg tablet 200 mg PO TID Qty: 90 4RF Discontinued alprazolam [Xanax] 0.5 mg Tablet 0.5 mg PO BID Follow up/Referrals: Belia Underwood MD [Physician] - 2 Weeks (2 wk and 6 wk follow up) Diet/Activity/Treatments Diet: Regular Activity: Nothing in the vagina for 6 weeks Skin/Wound/Dressing Care Report to your healthcare provider any signs of infection, such as:: chills, fever, increased pain and unusual drainage Visit Report/Discharge Packet Instructions: Pre-eclampsia, DI for Labor and Delivery, Vaginal , Labetalol
== END 2022-04-01 11:07 | disposition home or self-care (01) | DRG 560 ==
LOC: LABOR 08:07 → ICU 09:33 → AC 03-26 15:46 → ICU 03-28 20:48
PROVIDERS: Family Medicine; Internal Medicine Critical Care Medicine; Admitting Provider Obstetrics & Gynecology; Referring Provider Obstetrics & Gynecology; Visit Provider Obstetrics & Gynecology
PROC: 10E0XZZ Delivery of Products of Conception, External Approach (ICD-10-PCS; CPT 59514; principal; 2022-03-24 07:30)
DX: O14.14 Severe pre-eclampsia complicating childbirth (principal); J96.01 Acute respiratory failure with hypoxia; J81.0 Acute pulmonary edema; J18.9 Pneumonia, unspecified organism; D58.9 Hereditary hemolytic anemia, unspecified; O99.324 Drug use complicating childbirth; O86.20 Urinary tract infection following delivery, unspecified; N39.0 Urinary tract infection, site not specified; D62 Acute posthemorrhagic anemia; Z37.0 Single live birth; O32.6XX0 Maternal care for compound presentation, not applicable or unspecified; Z3A.39 39 weeks gestation of pregnancy; O99.02 Anemia complicating childbirth; O99.53 Diseases of the respiratory system complicating the puerperium; B96.20 Unspecified Escherichia coli [E. coli] as the cause of diseases classified elsewhere; F19.10 Other psychoactive substance abuse, uncomplicated; Z86.16 Personal history of COVID-19
CPT/HCPCS: 01967; 36415; 36430; 36569; 36592; 36600; 59050; 59409; 71045; 71046; 71275; 80048; 80053; 80055; 80074; 80305; 81001; 82805; 83010; 83036; 83615; 83735; 83880; 84450; 84550; 85025; 85379; 86803; 86850; 86900; 86901; 87040; 87077; 87086; 87186; 87389; 87635; 87797; 93306; 93970; 94660; 94760; 94762; 99222; 99238; C9803; P9016; 90715; G0379; J0690; J0696; J1642; J1885; J1940; J2060; J2543; J3475; Q9967